=== PATIENT | male | born 1965 | race African-American/Black ===

== ENCOUNTER 2016-09-01 13:26 | Outpatient (CLI) | payer MEDICAID | END 2016-09-01 13:27 | disposition home or self-care (01) | DX: K58.9 Irritable bowel syndrome, unspecified (principal); F41.8 Other specified anxiety disorders; D64.9 Anemia, unspecified ==

== ENCOUNTER 2016-11-03 09:36 | Outpatient (CLI) | payer MEDICAID | END 2016-11-03 09:37 | disposition home or self-care (01) | DX: K86.1 Other chronic pancreatitis (principal); Z90.49 Acquired absence of other specified parts of digestive tract ==

== ENCOUNTER 2017-01-04 08:47 | Outpatient (CLI) | payer MEDICAID ==
[2017-01-04 13:31] LABS: ALBUMIN/GLOBULIN RATIO 1.7 (1.0-2.2); BILIRUBIN,TOTAL 0.6 mg/dL (0.2-1.0); CALCIUM 9.4 mg/dL (8.5-10.3); POTASSIUM 3.4 mmol/L (3.5-5.0); TOTAL PROTEIN 7.7 g/dL (6.7-8.2)
== END 2017-01-04 08:48 | disposition home or self-care (01) ==
LOC: LAB.N 08:47
PROVIDERS: ATTEND Family Medicine
DX: K86.1 Other chronic pancreatitis (principal); K58.9 Irritable bowel syndrome, unspecified
CPT/HCPCS: 36415; 80053; 82150; 83690

== ENCOUNTER 2017-01-14 13:30 | Emergency (ER) | payer MEDICAID ==
[2017-01-14 13:36] VITALS: BP 104/59
[2017-01-14 14:27] LABS: BILIRUBIN,URINE NEGATIVE (NEGATIVE); PH,URINE 5.5 PH (5.0-7.5)
[2017-01-14 14:34] LABS: UA CHARGE (STRIP ONLY) YES; UR CULTURE IF IND NOT INDICATED
--- NOTE | 2017-01-14 15:19 | ED Physician Documentation ---
PD HPI MALE - Stated complaint Stated Complaint: MALE - Chief complaint Chief Complaint: UTI - History obtained from History obtained from: Patient, Family - History of Present Illness Timing - onset: Other (51-year-old gentleman complains of 1 week of urinary frequency, drinking a lot of water and peeing a lot, however no increase in nocturia and there is no associated dysuria, back pain, fatigue, weight loss.) Review of Systems Constitutional: denies: Fever, Chills GI: reports: Abdominal Pain (Chronic, unchanged) : reports: Frequency. denies: Dysuria, Hesitancy, Incontinent PD PAST MEDICAL HISTORY - Past Medical History GI: Hiatal hernia Other Past Medical History: "pancreas problems" - Past Surgical History Past Surgical History: Yes General: Cholecystectomy Derm: Skin grafts - Present Medications Home Medications: Ambulatory Orders Medication Instructions Recorded Confirmed Dicyclomine [Bentyl] 10 mg PO QID 09/23/13 09/23/13 Omeprazole [PriLOSEC] 20 mg PO DAILY 09/23/13 09/23/13 Senna [Senokot] 8.6 mg PO DAILY 09/23/13 09/23/13 busPIRone [Buspar] 5 mg PO DAILY 01/14/17 01/14/17 - Allergies Allergies/Adverse Reactions: Allergies Allergy/AdvReac Type Severity Reaction Status Date / Time ondansetron Allergy Severe Respiratory Verified 09/24/13 00:06 acetaminophen [From Vicodin] Allergy Nausea Verified 01/14/17 13:36 hydrocodone bitartrate * Allergy Nausea Verified 01/14/17 13:36 [From Vicodin] - Social History Does the pt smoke?: No Smoking Status: Never smoker Does the pt drink ETOH?: No Does the pt have substance abuse?: No - Immunizations Immunizations are current?: Yes - POLST Patient has POLST: No PD ED PE NORMAL - Vitals Vital signs reviewed: Yes - General General: Alert and oriented X 3, No acute distress - Abdomen Abdomen: Normal bowel sounds, Soft, Non tender - Male Male : Other (Bladder scan 15 mL) - Rectal Rectal: Other (Nontender not enlarged prostate) - Neuro Neuro: Alert and oriented X 3, Normal speech - Psych Psych: Normal mood, Normal affect Results - Vitals Vitals: Vital Signs - 24 hr 01/14/17 13:34 Temperature 36.5 C Heart Rate 90 Respiratory 16 Rate Blood Pressure 104/59 L O2 Saturation 98 Oxygen O2 Source Room air - Labs Labs: Laboratory Tests 01/14/17 14:10 Urine Color YELLOW Urine Clarity CLEAR Urine pH 5.5 Ur Specific [place] >=1.030 H Urine Protein NEGATIVE Urine Glucose (UA) NEGATIVE Urine Ketones NEGATIVE Urine Occult Blood TRACE-INTA Urine Nitrite NEGATIVE Urine Bilirubin NEGATIVE Urine Urobilinogen 0.2 (NORMAL) Ur Leukocyte Esterase NEGATIVE Ur Microscopic Review NOT INDICATED Urine Culture Comments NOT INDICATED PD MEDICAL DECISION MAKING - ED course ED course: 51-year-old gentleman complains of urinary frequency, however no nocturia. He had electrolytes done a week ago which were unremarkable. His bladder scan is negligible here and we will check a blood sugar, however his blood glucose was normal a week ago. Departure - Departure Disposition: 01 Home, Self Care Clinical Impression: Urinary frequency Condition: Good Record reviewed to determine appropriate education?: Yes Comments: Return if worse or if new symptoms develop, otherwise follow-up with your physician at your earliest convenience.
== END 2017-01-14 15:25 | disposition home or self-care (01) ==
LOC: ED 13:30
DX: R35.0 Frequency of micturition (principal); R10.9 Unspecified abdominal pain
CPT/HCPCS: 51798; 81001; 81003; 87086; 99283

== ENCOUNTER 2017-01-19 08:56 | Outpatient (CLI) | payer MEDICAID ==
--- NOTE | 2017-01-19 15:12 | Ultrasound Report ---
LIMITED ABDOMINAL ULTRASOUND: 01/19/2017 CLINICAL INDICATION: Chronic recurrent pancreatitis. COMPARISON: 11/03/2016. TECHNIQUE: Real-time scanning was performed with telemarketing representative static images obtained. FINDINGS: The liver measures 13.4 cm. Hepatic echotexture is normal. No intrahepatic biliary dilatat ion or focal parenchymal lesion is present. The patient is status post cholecystectomy. The common bi le duct measures 5 mm. The visualized pancreas is unremarkable. The right kidney measures 9.4 cm, and demonstrates no hydronephrosis. No free fluid is present. IMPRESSION: CHANGES OF CHOLECYSTECTOMY. THE VISUALIZED PANCREAS IS UNREMARKABLE. JOB #: [id number] EXT JOB #:[id number]
== END 2017-01-19 08:57 | disposition home or self-care (01) ==
LOC: DI 08:56
PROVIDERS: ATTEND Family Medicine
DX: K86.1 Other chronic pancreatitis (principal); Z90.49 Acquired absence of other specified parts of digestive tract
CPT/HCPCS: 76705

== ENCOUNTER 2018-01-25 14:42 | Outpatient (CLI) | payer MEDICAID ==
[2018-01-25 19:07] LABS: BASOPHILS % (AUTO) 0.4 %; EOSINOPHILS # (AUTO) 0.1 10^3/uL (0.0-0.7); EOSINOPHILS % (AUTO) 2.1 %; HGB - HEMOGLOBIN 11.5 g/dL (14.0-18.0); LYMPHOCYTES # (AUTO) 1.8 10^3/uL (1.5-3.5); LYMPHOCYTES % (AUTO) 59.1 %; MEAN CORPUSCULAR HEMOGLOBIN 24.3 pg (27.0-31.0); MEAN CORPUSCULAR HGB CONC 31.5 g/dL (32.0-36.0); MEAN CORPUSCULAR VOLUME 77.2 fL (80.0-94.0); MONOCYTES # (AUTO) 0.2 10^3/uL (0.0-1.0); MONOCYTES % (AUTO) 8.1 %; NEUTROPHILS # (AUTO) 0.9 10^3/uL (1.5-6.6); NEUTROPHILS % (AUTO) 30.3 %; PLT - PLATELET COUNT 163 10^3/uL (130-450); RED CELL DISTRIBUTION WIDTH 13.7 % (12.0-15.0); WHITE BLOOD COUNT 3.1 x10^3/uL (4.8-10.8)
[2018-01-25 20:02] LABS: ALBUMIN 4.2 g/dL (3.2-5.5); ALBUMIN/GLOBULIN RATIO 1.4 (1.0-2.2); BILIRUBIN,TOTAL 0.7 mg/dL (0.2-1.0); CALCIUM 9.1 mg/dL (8.5-10.3); TOTAL PROTEIN 7.2 g/dL (6.7-8.2)
== END 2018-01-25 14:43 | disposition home or self-care (01) ==
LOC: LAB.N 14:42
PROVIDERS: ATTEND Family Medicine
DX: R10.9 Unspecified abdominal pain (principal); K58.9 Irritable bowel syndrome, unspecified; K64.9 Unspecified hemorrhoids
CPT/HCPCS: 36415; 80053; 82728; 83540; 83690; 84466; 85025

== ENCOUNTER 2018-03-11 20:55 | Observation (INO) | payer MEDICAID ==
[2018-03-11] MEDS ORDERED: ASPIRIN CHEW 81 MG TABLET PO STA (21:19)
[2018-03-11] MEDS ORDERED: NITROGLYCERIN SL 0.4 MG TABLET SL STA (21:19)
[2018-03-11] MEDS ORDERED: METOPROLOL TARTRATE 50 MG TABLET ONE (21:24)
[2018-03-11] MEDS ORDERED: CLOPIDOGREL 300 MG TABLET PO ONE (21:24)
[2018-03-11] MEDS ORDERED: HEPARIN 5,000 UNIT/ML VIAL ONE (21:24)
[2018-03-11] MEDS ORDERED: HEPARIN IV ONE (21:24)
[2018-03-11] MEDS ORDERED: MORPHINE 10 MG/ML VIAL IVP STA (21:28)
[2018-03-11 21:40] LABS: INR 1.2 (0.8-1.2); PT - PROTHROMBIN TIME 13.2 secs (9.9-12.6)
--- NOTE | 2018-03-11 21:40 | XRAY Report ---
Reason: chest pain Procedure Date: 03/11/2018 Accession Number: [id number] / [id number] Procedure: XR - Chest 1 View X-Ray CPT Code: 63672 FULL RESULT: EXAM: CHEST RADIOGRAPHY EXAM DATE: 03/11/2018 09:31 PM. CLINICAL HISTORY: Chest pain. COMPARISON: Chest abdomen 01/09/2008. TECHNIQUE: 1 view. FINDINGS: Lungs/Pleura: No focal opacities evident. No pleural effusion. No pneumothorax. Mediastinum: Within exam limitations, the cardiomediastinal contour is normal. Other: None. IMPRESSION: Normal single view chest. RADIA
[2018-03-11 21:49] LABS: ALBUMIN 4.7 g/dL (3.2-5.5); ALBUMIN/GLOBULIN RATIO 1.7 (1.0-2.2); BILIRUBIN,TOTAL 0.7 mg/dL (0.2-1.0); CALCIUM 10.1 mg/dL (8.5-10.3); CREATININE 1.3 mg/dL (0.6-1.2); TOTAL PROTEIN 7.5 g/dL (6.7-8.2)
--- NOTE | 2018-03-11 21:59 | ED Physician Documentation ---
PD HPI CHEST PAIN - Stated complaint Stated Complaint: CHEST PX - Chief complaint Chief Complaint: Cardiac - History obtained from History obtained from: Patient - History of Present Illness Timing - onset: Today Timing - onset during: Rest Timing - duration: Hours Timing - details: Abrupt onset Pain level max: 8 Pain level now: 8 Quality: Sharp, Stabbing Location: Substernal Radiation: Other (no radiation) Improved by: Rest Worsened by: Eating Associated symptoms: Shortness of air, General Weakness. No: Diaphoresis, Nausea, Feeling faint / dizzy, Cough Similar symptoms before: No diagnosis Recently seen: Not recently seen Review of Systems Constitutional: denies: Fever, Chills Eyes: denies: Discharge Ears: denies: Ear pain Nose: denies: Congestion Throat: denies: Sore throat Cardiac: reports: Chest pain / pressure Respiratory: denies: Cough GI: denies: Abdominal Pain : denies: Dysuria Skin: denies: Rash Musculoskeletal: denies: Neck pain Neurologic: denies: Generalized weakness Endocrine: denies: Polydypsia Immunocompromised: denies: Chemotherapy PD PAST MEDICAL HISTORY - Past Medical History GI: Hiatal hernia - Past Surgical History Past Surgical History: Yes General: Cholecystectomy Derm: Skin grafts - Present Medications Home Medications: Ambulatory Orders Medication Instructions Recorded Confirmed Dicyclomine [Bentyl] 10 mg PO QID 09/23/13 09/23/13 Omeprazole [PriLOSEC] 20 mg PO DAILY 09/23/13 09/23/13 Senna [Senokot] 8.6 mg PO DAILY 09/23/13 09/23/13 busPIRone [Buspar] 5 mg PO DAILY 01/14/17 01/14/17 - Allergies Allergies/Adverse Reactions: Allergies Allergy/AdvReac Type Severity Reaction Status Date / Time ondansetron Allergy Severe Respiratory Verified 09/24/13 00:06 acetaminophen [From Vicodin] Allergy Nausea Verified 01/14/17 13:36 hydrocodone bitartrate * Allergy Nausea Verified 01/14/17 13:36 [From Vicodin] - Social History Does the pt smoke?: No Smoking Status: Never smoker Does the pt drink ETOH?: No Does the pt have substance abuse?: No - Immunizations Immunizations are current?: Yes - POLST Patient has POLST: No PD ED PE NORMAL - General General: Alert and oriented X 3, No acute distress - HEENT HEENT: Atraumatic, PERRL, EOMI, Ears normal - Neck Neck: Supple, no meningeal sign, No adenopathy - Cardiac Cardiac: RRR, Strong equal pulses - Respiratory Respiratory: No respiratory distress, Clear bilaterally - Abdomen Abdomen: Soft, Non tender, Non distended - Back Back: No CVA TTP - Derm Derm: Normal color - Extremities Extremities: No deformity, No edema - Neuro Neuro: Alert and oriented X 3, No motor deficit, Normal speech - Psych Psych: Normal affect Results - Vitals Vitals: Vital Signs - 24 hr 03/11/18 03/11/18 03/11/18 21:09 21:11 22:02 Temperature 36.8 C Heart Rate 61 60 Respiratory 16 19 Rate Blood Pressure 124/75 122/83 H Blood Pressure 115/78 [Left] Blood Pressure 122/83 H [Right] O2 Saturation 100 100 Oxygen O2 Source Room air - EKG (time done) No standard instances Rate: Rate (enter#) (60 BPM) Rhythm: NSR [place]: Normal Intervals: Normal IL, QRS normal Ischemia: Other (ST elevation in V2-4) Compare to prior EKG: Old EKG unavailable - Labs Labs: Laboratory Tests 03/11/18 03/11/18 03/11/18 21:25 21:25 21:25 PT 13.2 H INR 1.2 APTT 30.7 D-Dimer Sodium 138 Potassium 3.3 L Chloride 104 Carbon Dioxide 26 Anion Gap 8.0 BUN 10 Creatinine 1.3 H Estimated GFR (MDRD) 70 L Glucose 96 Calcium 10.1 Total Bilirubin 0.7 AST 24 ALT 17 Alkaline Phosphatase 31 L Troponin I < 0.04 Total Protein 7.5 Albumin 4.7 Globulin 2.8 Albumin/Globulin Ratio 1.7 Lipase 66 H 03/11/18 21:25 PT INR APTT D-Dimer < 200.0 L Sodium Potassium Chloride Carbon Dioxide Anion Gap BUN Creatinine Estimated GFR (MDRD) Glucose Calcium Total Bilirubin AST ALT Alkaline Phosphatase Troponin I Total Protein Albumin Globulin Albumin/Globulin Ratio Lipase - Rads (name of study) CXR Radiology: Final report received (IMPRESSION: Normal single view chest. ) PD MEDICAL DECISION MAKING - ED course ED course: 21:10 I discussed the case with the cardiology team at [facility], the senior analyst programmer independently reviewed the EKG. I discussed with them the patient' s clinical presentation, past medical history and EKG findings. After the senior analyst programmer independent review of the EKG he does not feel that the EKG findings represent a ST elevation CO and are more consistent with J-point elevation. Currently he does not recommend transfer and recommends typical chest pain workup. The patient is chest pain-free on reevaluation, the patient's workup does not show any significant abnormality at this time. The patient will require admission for a chest pain rule out. The findings and plan were discussed with the patient and family who understand and agree. The case was discussed with the hospitalist who accepts the patient onto his service - Sepsis Event Vital Signs: Vital Signs - 24 hr 03/11/18 03/11/18 03/11/18 21:09 21:11 22:02 Temperature 36.8 C Heart Rate 61 60 Respiratory 16 19 Rate Blood Pressure 124/75 122/83 H Blood Pressure 115/78 [Left] Blood Pressure 122/83 H [Right] O2 Saturation 100 100 Oxygen O2 Source Room air Departure - Departure Disposition: ED Place in Observation Clinical Impression: Chest pain Qualifiers: Chest pain type: unspecified Qualified Code(s): R07.9 - Chest pain, unspecified Condition: Good
[2018-03-11] MEDS ORDERED: POTASSIUM CHLORIDE 20 MEQ TABLET PO STA (22:16)
[2018-03-11 22:34] LABS: BASOPHILS # (AUTO) 0.1 10^3/uL (0.0-0.1); EOSINOPHILS % (AUTO) 0.6 %; HGB - HEMOGLOBIN 11.8 g/dL (14.0-18.0); LYMPHOCYTES # (AUTO) 3.3 10^3/uL (1.5-3.5); LYMPHOCYTES % (AUTO) 60.3 %; MEAN CORPUSCULAR HEMOGLOBIN 24.3 pg (27.0-31.0); MEAN CORPUSCULAR HGB CONC 32.3 g/dL (32.0-36.0); MEAN CORPUSCULAR VOLUME 75.4 fL (80.0-94.0); MEAN PLATELET VOLUME 9.4 fL (7.4-11.4); MONOCYTES # (AUTO) 0.5 10^3/uL (0.0-1.0); MONOCYTES % (AUTO) 9.5 %; NEUTROPHILS # (AUTO) 1.6 10^3/uL (1.5-6.6); NEUTROPHILS % (AUTO) 28.6 %; PLT - PLATELET COUNT 162 10^3/uL (130-450); RED BLOOD COUNT 4.85 10^6/uL (4.70-6.10); RED CELL DISTRIBUTION WIDTH 14.5 % (12.0-15.0); WHITE BLOOD COUNT 5.4 x10^3/uL (4.8-10.8)
[2018-03-11 23:00] LABS: PLATELET ESTIMATE, MANUAL NORMAL (130-450,000) (NORMAL); PLATELET MORPHOLOGY 2+ LARGE PLATELETS (NORMAL); RBC MORPHOLOGY (MULTIPLE) NORMAL APPEARANCE (NORMAL)
[2018-03-11] MEDS ORDERED: SODIUM CHLORIDE FLUSH 0.9% 10 ML SYRINGE IVP PRN (23:44)
[2018-03-11] MEDS ORDERED: MORPHINE 2 MG/ML CARPUJECT IVP PRN (23:44)
[2018-03-12 00:29] LABS: CALCIUM 9.2 mg/dL (8.5-10.3); CREATININE 1.1 mg/dL (0.6-1.2)
[2018-03-12 05:08] LABS: BASOPHILS % (AUTO) 0.5 %; EOSINOPHILS % (AUTO) 0.6 %; HGB - HEMOGLOBIN 11.4 g/dL (14.0-18.0); LYMPHOCYTES # (AUTO) 2.6 10^3/uL (1.5-3.5); LYMPHOCYTES % (AUTO) 47.8 %; MEAN CORPUSCULAR HEMOGLOBIN 24.7 pg (27.0-31.0); MEAN CORPUSCULAR HGB CONC 32.9 g/dL (32.0-36.0); MEAN CORPUSCULAR VOLUME 75.1 fL (80.0-94.0); MEAN PLATELET VOLUME 8.6 fL (7.4-11.4); MONOCYTES # (AUTO) 0.4 10^3/uL (0.0-1.0); MONOCYTES % (AUTO) 8.3 %; NEUTROPHILS # (AUTO) 2.3 10^3/uL (1.5-6.6); NEUTROPHILS % (AUTO) 42.8 %; PLT - PLATELET COUNT 149 10^3/uL (130-450); RED CELL DISTRIBUTION WIDTH 14.1 % (12.0-15.0); WHITE BLOOD COUNT 5.4 x10^3/uL (4.8-10.8)
--- NOTE | 2018-03-12 05:10 | HISTORY & PHYSICAL EXAMINATION ---
Chief Complaint - Chief Complaint Chief Complaint: substernal chest pain History of Present Illness - History of Present Illness HPI Comment/Other: Patient is a 53 y/o male who presented to the ED with complain of substernal chest pain which started in the morning of 03/11/18. Initially it felt like he has to burp, which he tried to do with some success. The sensation subsided then returned later in the day with a feeling of pressure. There was no radiation of pain and no exacerbating factors. He denied previous occurence. He reports some VIC with laying down. He denies nausea or vomiting but says his stomach feels upset. The rest of his history is unremarkable. Work up in the ED included a troponin and an EKG which have been unremarkable so far History - Past Medical History Respiratory: reports: None Endocrine/Autoimmune: reports: None GI: reports: Hiatal hernia, Other (IBS) : reports: None HEENT: reports: None Psych: reports: None Musculoskeletal: reports: None Derm: reports: None MRSA Hx?: No - Past Surgical History General: reports: Cholecystectomy, Other (Hemorrhoidectomy) Derm: reports: Skin grafts - Family & Social History Family History: Other family: Cancer (breast cancer) Living arrangement: At home Living Situation: With spouse/s.o. - Substance History Use: Uses substance without health or social issues: Cannabis Abuse: Recurrent use of substance despite neg consequences: NONE - POLST Patient has POLST: No POLST Status: Full Code Meds/Allgy - Home Medications Home Medications: Ambulatory Orders Medication Instructions Recorded Confirmed Dicyclomine [Bentyl] 10 mg PO QID 09/23/13 09/23/13 Omeprazole [PriLOSEC] 20 mg PO DAILY 09/23/13 09/23/13 Senna [Senokot] 8.6 mg PO DAILY 09/23/13 09/23/13 busPIRone [Buspar] 5 mg PO DAILY 01/14/17 01/14/17 - Allergies Allergies/Adverse Reactions: Allergies Allergy/AdvReac Type Severity Reaction Status Date / Time ondansetron Allergy Severe Respiratory Verified 09/24/13 00:06 acetaminophen [From Vicodin] Allergy Nausea Verified 01/14/17 13:36 hydrocodone bitartrate * Allergy Nausea Verified 01/14/17 13:36 [From Vicodin] Review of Systems - Constitutional Constitutional: denies: Fatigue, Weakness, Poor appetite, Weight loss - Eyes Eyes: denies: Vision loss - Ears, Nose & Throat Ears, Nose & Throat: denies: Ear pain, Hearing loss, Tinnitus, Nosebleeds, Sore throat - Cardiovascular Cariovascular: reports: Chest pain, Lightheadedness, Orthopnea. denies: Palpitations - Respiratory Respiratory: denies: Cough, Wheezing, Hemoptysis, SOB with exertion - Gastrointestinal Gastrointestinal: reports: Reflux/heartburn. denies: Abdominal pain, Nausea, Vomiting - Genitourinary Genitourinary: denies: Dysuria, Frequency, Urgency, Hematuria - Musculoskeletal Musculoskeletal: denies: Muscle pain, Muscle aches, Stiffness, Muscle weakness, Joint swelling - Integumentary Integumentary: denies: Rash, Pruritis - Neurological Neurological: denies: General weakness, Headache, Numbness, Abnormal gait, Slurred speech - Psychiatric Psychiatric: denies: Depression, Anxiety, Suicidal - Endocrine Endocrine: denies: Polyuria, Polydypsia, Polyphagia - Hematologic/Lymphatic Hematologic/Lymphatic: denies: Bruising, Petechiae, Blood clots Exam - Vital Signs Vital Signs: Vital Signs x48h Temp Pulse Resp BP BP BP Pulse Ox 03/12/18 00:22 61 22 126/75 100 03/11/18 23:26 67 18 137/78 H 100 03/11/18 22:52 64 15 144/82 H 100 03/11/18 22:30 64 23 130/75 100 03/11/18 22:02 60 19 122/83 H 100 03/11/18 21:11 115/78 122/83 H 03/11/18 21:09 36.8 C 61 16 124/75 100 - Physical Exam General Appearance: positive: Mild distress Eyes Bilateral: positive: Normal inspection, PERRL, EOMI, No scleral icterus ENT: positive: ENT inspection nml, Pharynx nml, No signs of dehydration Neck: positive: Thyroid nml, No JVD, Trachea midline. negative: Thyromegaly, Lymphadenopathy (R), Lymphadenopathy (L) Respiratory: negative: Chest non-tender, No respiratory distress, Wheezes, Rales, Rhonchi Cardiovascular: positive: Regular rate & rhythm. negative: No murmur, No gallop Abdomen: positive: Non-tender, No organomegaly, Nml bowel sounds, No distention Skin: positive: Color nml, No rash, Warm Extremities: positive: Non-tender, Full ROM, Nml appearance, No pedal edema Neurologic/Psychiatric: positive: Oriented x3, Motor nml, Sensation nml Conclusion/Plan - Problem List (1) Chest pain Conclusion/Plan: Etiology unspecified Will r/o cardiac cause Initial troponin negative. Will trend X 2 more If negative, will proceed with stress test Baby aspirin daily Should chest pain return, we will administer nitroglycerin sublingual Qualifiers: Chest pain type: unspecified Qualified Code(s): R07.9 - Chest pain, unspecified (2) DVT prophylaxis Conclusion/Plan: Lovenox 40 units subq daily - Lab Results Fish Bones: 03/12/18 04:56 03/12/18 04:56 Core Measures - Anticipated LOS I expect patient to be DC'd or transferred within 96 hours.: Yes - DVT/VTE - Prophylaxis VTE/DVT Device ordered at admit?: Yes VTE/DVT Prophylaxis med ordered at admit?: Yes - AMI - Statin at Admit Aspirin Prescribed on Admit: Yes
[2018-03-12 05:15] LABS: ALBUMIN/GLOBULIN RATIO 1.7 (1.0-2.2); BILIRUBIN,TOTAL 0.7 mg/dL (0.2-1.0); TOTAL PROTEIN 6.4 g/dL (6.7-8.2)
[2018-03-12] MEDS: SODIUM CHLORIDE FLUSH 0.9% 10 ML SYRINGE IVP SCH ×3 (05:59→15:46)
[2018-03-12] MEDS: SODIUM CHLORIDE 0.9% 1,000 ML IV SCH ×2 (05:59→13:05)
[2018-03-12] MEDS ORDERED: POLYETHYLENE GLYCOL 3350 17 GM PACKET PO SCH (09:00)
[2018-03-12] MEDS ORDERED: ENOXAPARIN 40 MG/0.4 ML SYRINGE SUBQ SCH (09:00)
[2018-03-12] MEDS ORDERED: ASPIRIN EC 81 MG TABLET PO SCH (09:00)
[2018-03-12] MEDS ORDERED: GI COCKTAIL 120 ML BOTTLE PO ONE (12:15)
--- NOTE | 2018-03-12 15:48 | CARDIAC PROCEDURE NOTE ---
DATE OF SERVICE: 03/12/2018 Physician: Helen Moise MD INDICATION: Chest pain. CARDIAC RISK FACTORS 1. Hypertension. 2. Male gender. The patient underwent a Isma 3-minute stage treadmill protocol after signing informed consent. RESTING EKG 1. Normal sinus rhythm, LVH voltage, early repolarization. SUMMARY: The patient exercised for 10 minutes and 8 seconds. The patient had mild shortness of breath, no chest pain, normal heart rate and blood pressure response to exercise. Resting heart rate 74. Peak heart rate 148 (88% predicted maximum predicted heart rate for age), 12 METS. Resting blood pressure 132/74. Peak blood pressure of 180/70. EKG AT [facility]: No new ST or T-wave changes. IMPRESSION 1. Good exercise tolerance. 2. Negative for ischemia, by EKG criteria, at a good MET level. 3. Nuclear images reported separately. TD: 03/12/2018 15:01 ANU
--- NOTE | 2018-03-12 16:38 | Nuclear Medicine Report ---
Reason: chest pain Procedure Date: 03/12/2018 Accession Number: [id number] / [id number] Procedure: NM - Myocardial Perfusion STR/RST CPT Code: FULL RESULT: EXAM: SINGLE-ISOTOPE EXERCISE STRESS TEST. SINGLE-ISOTOPE AND ONE-DAY REST/STRESS MYOCARDIAL PERFUSION SCANS WITH TOMOGRAPHIC IMAGING, QUANTITATIVE ANALYSIS, WALL MOTION ANALYSIS AND CALCULATION OF EJECTION FRACTION. EXAM DATE: 03/12/2018 03:58 PM. CLINICAL HISTORY: Chest pain. COMPARISON: None. TECHNIQUE: A rest myocardial perfusion scan was done with tomography after the intravenous administration of 10.7 mCi Tc-99m sestamibi. After an appropriate delay, a treadmill exercise stress was performed according to department protocol. The patient exercised for 10 minutes and 8 seconds. The maximum heart rate was 148 bpm, which was 88% of the maximum predicted heart rate of 168 bpm. At approximately peak heart rate, 39.0 mCi of Tc-99m sestamibi was injected for stress myocardial perfusion scan. Motion correction was applied when appropriate. Gated tomographic images were obtained for wall motion analysis and computation of left ventricular ejection fraction. FINDINGS: Perfusion images: Left ventricular chamber size is normal at rest and unchanged at stress. No convincing fixed perfusion deficits. No convincing reversible perfusion deficits. Gated images: No focal wall motion abnormality. Left ventricular EDV 47 mL, ESV 7 mL. The left ventricular ejection fraction is estimated at 85% (normal > 50%). IMPRESSION: 1. No convincing reversible perfusion deficits to indicate stress-induced ischemia. 2. No convincing fixed perfusion deficits. 3. Left ventricular ejection fraction of 85% (normal > 50%). 4. No focal wall motion abnormalities. RADIA
--- NOTE | 2018-03-12 17:08 | Discharge Plan ---
Discharge Plan Disposition: 01 Home, Self Care Condition: Good Prescriptions: Pantoprazole Sodium [Protonix] 20 mg PO BID #60 tablet. Temazepam 7.5 mg PO ACHS #30 capsule Diet: Regular Activity Restrictions: No Restrictions Shower Restrictions: No Driving Restrictions: No Weight Bearing: Full Weight Additional Instructions or Follow Up instructions: You were admitted for mid-sternal chest pain that resolved and was ruled out as cardiac. All cardiac enzymes were negative, and your myocardial perfusion test with treadmill, was NORMAL. An echocardiogram was completed and preliminary results showed some elevated right heart pressures. You should get a sleep study and refrain from inhaling any substances that may irritate your lungs. The most likely cause of your chest pain is GI related. You should take a proton pump inhibitor twice daily, and if this is not working, check back with your PCP. Please seek a therapist to ease your mental work load as this may add to your symptoms. I have given you some mild sleeping pills to help you out with the lack of normal sleeping. Please see your PCP within one week as a follow up to this stay. No Smoking: If you smoke, Please STOP! Call for help. Follow-up with: Jill Myles ARNP [Primary Care Provider] -
--- NOTE | 2018-03-12 17:16 | DISCHARGE SUMMARY ---
Discharge Summary Admit Date: 03/11/18 Discharge Date: 03/12/18 Discharging Provider: FLORENCE Seay Primary Care Provider: Jill Martinez Code Status: Attempt Resuscitation Condition at Discharge: Good Discharge Disposition: 01 Home, Self Care - DIAGNOSES Admission Diagnoses: Chest pain (R07.9) Mechanical deep vein thrombosis (DVT) prophylaxis in place (Z78.9) Discharge Diagnoses with Status of Each Condition: Chest pain (R07.9) likely due to GERD, stable and resolved at the time of discharge. Mechanical deep vein thrombosis (DVT) prophylaxis in place (Z78.9) resolved. Marijuana abuse (F12.10) chronic, stable. GERD (gastroesophageal reflux disease) (K21.9) chronic, stable. Anxiety and depression (F41.9) chronic, stable, encouraged to seek psychotherapy. Insomnia (G47.00)chronic, stable. - HPI History of Present Illness: Patrick Celis Jr is an 53 y/o male with a past medical history of depression, anxiety, marijuana dependence, status post cholecystectomy, and GERD. He presented to the ED with complaints of substernal chest pain which started in the morning of 03/11/18. Initially it felt like he has to burp, which he tried to resolve with [place] Sophia, with little success. The sensation subsided then returned later in the day with a feeling of pressure. There was no radiation of pain to his chin, shoulder, or extremities. He denies other associated symptoms such as dizziness, diaphoresis, blurred vision, or syncope. He denied previous occurrences to this severity, although can attest to previous heart burn symptoms. He reports some orthopnea, and states that he no longer lies in bed to sleep and his anxiety "gets the best of him". He denies nausea or vomiting but says his stomach feels upset. The rest of his history is unremarkable. Work up in the ED included a troponin and an EKG which have been unremarkable so far. He was admitted to observation to undergo further testing including a myocardial perfusion treadmill stress test. - HOSPITAL COURSE Hospital Course: Chest pain: The patient was observed overnight and underwent a myocardial perfus ion treadmill/stress test, telemetry monitoring, an echocardiogram, and routine vital sign monitoring. These test were all negative as to rule out a cardiac cause. The chest pain was likely due to GERD as it resolved upon discharge, and was not provoked by activity. Marijuana abuse: The patient admits to continued use and was talked about as to the possible cause of his pulmonary hypertension. If he finds marijuana helpful, he should no longer smoke it, rather consume it via GI tract. He agreed and this condition is thought to be stable. GERD: The patient has complained of "heart burn" for several years. He was given one GI cocktail, which was reported as having little benefit. This condition seemed stable at the time of discharge. Anxiety and depression: The patient talked about his ex- and custody issues that has been causing him lots of stress and insomnia for the past several months. He denies suicidal ideation, and does not currently see a therapist. This condition remains unstable, and the patient is agreeable to seeking an out patient therapist. Insomnia: The patient admits to not sleeping in his bed at night as the neighborhood has several homeless people and he worries about someone breaking in while they sleep. Another component to this is his apparent orthopnea, likely related to his possible undiagnosed sleep apnea. He has been encouraged to get a sleep study to be ordered by PCP and a small amount of low dose temazepam were given for the next few nights. This condition is considered to be stable upon discharge. Disposition: The patient has completed the limited cardiac work up, and was instructed to return to the ED if his chest pain persists. - ALLERGIES Allergies/Adverse Reactions: Allergies Allergy/AdvReac Type Severity Reaction Status Date / Time ondansetron Allergy Severe Respiratory Verified 09/24/13 00:06 acetaminophen [From Vicodin] Allergy Nausea Verified 01/14/17 13:36 hydrocodone bitartrate * Allergy Nausea Verified 01/14/17 13:36 [From Vicodin] - MEDICATIONS Home Medications: Ambulatory Orders Medication Instructions Recorded Confirmed Pantoprazole Sodium [Protonix] 20 mg PO BID #60 tablet. 03/12/18 Polyethylene Glycol 3350 8.5 g PO DAILY PRN 03/12/18 03/12/18 Sennosides/Docusate Sodium 2 tab PO QPM 03/12/18 03/12/18 [Senna-S Laxative Tablet] Temazepam 7.5 mg PO DAILY PM #30 capsule 03/13/18 Omeprazole Magnesium [Prilosec] 10 mg PO BID #60 suspdr.pkt 03/15/18 - PHYSICAL EXAM AT DISCHARGE General Appearance: positive: No acute distress, Alert, Anxious Eyes Bilateral: positive: Normal inspection, PERRL ENT: positive: ENT inspection nml, Pharynx nml, No signs of dehydration Neck: positive: Nml inspection, Thyroid nml, No JVD, Trachea midline Respiratory: positive: Chest non-tender, No respiratory distress, Breath sounds nml Cardiovascular: positive: Regular rate & rhythm, No gallop, Bradycardia, Systolic murmur Peripheral Pulses: positive: 2+ Abdomen: positive: Non-tender, No organomegaly, Nml bowel sounds, No distention Back: positive: Nml inspection Skin: positive: No rash, Warm, Dry Extremities: positive: Non-tender, Full ROM, Nml appearance Neurologic/Psychiatric: positive: Oriented x3, CN's nml (2-12), Motor nml, Sensation nml, Depressed mood/affect Reflexes: Bicep (R): 3+, Bicep (L): 3+ - LABS Result Diagrams: 03/12/18 04:56 03/12/18 04:56 - DIAGNOSTIC IMAGING Diagnostic Imaging Results: Final report reviewed Diagnostic Imaging Results Comments: EXAM: CHEST RADIOGRAPHY EXAM DATE: 03/11/2018 09:31 PM. IMPRESSION: Normal single view chest. EXAM: SINGLE-ISOTOPE EXERCISE STRESS TEST. SINGLE-ISOTOPE AND ONE-DAY REST/STRESS MYOCARDIAL PERFUSION SCANS WITH TOMOGRAPHIC IMAGING, QUANTITATIVE A NALYSIS, WALL MOTION ANALYSIS AND CALCULATION OF EJECTION FRACTION. EXAM DATE: 03/12/2018 03:58 PM. IMPRESSION: 1. No convincing reversible perfusion deficits to indicate stress-induced ische nydia. 2. No convincing fixed perfusion deficits. 3. Left ventricular ejection fraction of 85% (normal > 50%). 4. No focal wall motion abnormalities. ECHOCARDIOGRAM: Final results by Juan Colon MD 1. The LV size is normal. LV wall thickness is normal. Overall LV systolic function is normal with an EF of 65-70%. Normal diastology. No regional wall motion abnormalities are seen. 2. The RV is normal in size and function. 3. There is no pericardial effusion noted. 4. No significant valvular abnormality. - FOLLOW UP Follow Up: Disposition: 01 Home, Self Care Condition: Good Prescriptions: Pantoprazole Sodium [Protonix] 20 mg PO BID #60 tablet. Temazepam 7.5 mg PO ACHS #30 capsule Diet: Regular Activity Restrictions: No Restrictions Shower Restrictions: No Driving Restrictions: No Weight Bearing: Full Weight Additional Instructions or Follow Up instructions: You were admitted for mid-sternal chest pain that resolved and was ruled out as cardiac. All cardiac enzymes were negative, and your myocardial perfusion test with treadmill, was NORMAL. An echocardiogram was completed and preliminary results showed some elevated right heart pressures. You should get a sleep study and refrain from inhaling a ny substances that may irritate your lungs. The most likely cause of your chest pain is GI related. You should take a proton pump inhibitor twice daily, and if this is not working, check back with your PCP. Please seek a therapist to ease your mental work load as this may add to your symptoms. I have given you some mild sleeping pills to help you out with the lack of normal sleeping. Please see your PCP within one week as a follow up to this stay. - TIME SPENT Time Spent in Discharge (Minutes): 60
[2018-03-12 18:31] VITALS: BP 123/73
--- NOTE | 2018-03-15 12:47 | MISCELLANEOUS PROVIDER NOTE ---
Miscellaneous Provider Note - - Note: I received a phone call today from the patient at home with continued complaints of chest pain. He states that is located in his mid-sternum similar to before and makes him mildly short of breath, and increased anxiety. He states that he took a walk and this resolved. He also talked about [facility] not having enough PPI that was prescribed and he worried about running out as he only has 3 pills left. After speaking with my supervising MD, Dr. Helen Moise, who was the provider during his latest stress test, she attests to advising the patient to come back to the ED. FLORENCE Seay
== END 2018-03-12 19:45 | disposition home or self-care (01) ==
LOC: ED 20:55 → MS2 23:45
PROVIDERS: ADMIT Internal Medicine; ATTEND Nurse Practitioner
DX: R07.89 Other chest pain (principal); K21.9 Gastro-esophageal reflux disease without esophagitis; F12.20 Cannabis dependence, uncomplicated; F41.9 Anxiety disorder, unspecified; F32.9 Major depressive disorder, single episode, unspecified; G47.00 Insomnia, unspecified; R06.01 Orthopnea
CPT/HCPCS: 36415; 71045; 78452; 80048; 80053; 83690; 84484; 85025; 85379; 85610; 85730; 93005; 93017; 93306; 96374; 99284; 99285; A9270; A9500; G0378

== ENCOUNTER 2018-03-15 13:35 | Emergency (ER) | payer MEDICAID ==
[2018-03-15] MEDS ORDERED: MAG HYDROX/AL HYDROX/SIMETH 30 ML UDC PO STA (14:05)
[2018-03-15] MEDS ORDERED: PHENobarb/HYOSCY/ATROPINE/SCOP 5 ML UDC PO STA (14:05)
[2018-03-15] MEDS ORDERED: KETOROLAC 60 MG/2 ML VIAL IVP STA (14:05)
[2018-03-15] MEDS ORDERED: LIDOCAINE VISCOUS 2% 15 ML UDC MM STA (14:05)
[2018-03-15] MEDS ORDERED: FAMOTIDINE 20 MG TABLET PO STA (14:05)
[2018-03-15] MEDS ORDERED: SUCRALFATE 1 GM/10 ML UDC PO STA (14:05)
--- NOTE | 2018-03-15 14:14 | ED Physician Documentation ---
PD HPI CHEST PAIN - Stated complaint Stated Complaint: CHEST PX - Chief complaint Chief Complaint: Cardiac - History obtained from History obtained from: Patient, Family - History of Present Illness Timing - onset: Last night Timing - onset during: Rest Timing - details: Gradual onset Pain level max: 7 Pain level now: 6 Quality: Aching, Pain Location: Substernal Radiation: Other (non-radiating) Improved by: Nothing Worsened by: Palpation Associated symptoms: Shortness of air (occasional). No: Diaphoresis, Nausea, Vomiting, Feeling faint / dizzy, General Weakness, Palpitations, Cough Similar symptoms before: Diagnosis (chest pain, negative nuclear stress test 3 days ago. Patient states that he has a long-standing history of GERD it was taken off of his reflux medications approximately 2 years ago) Review of Systems Ten Systems: 10 systems reviewed and negative Constitutional: denies: Fever, Chills Ears: denies: Ear pain Nose: denies: Rhinorrhea / runny nose, Congestion Throat: denies: Sore throat Cardiac: denies: Palpitations Respiratory: denies: Dyspnea, Cough, Wheezing GI: denies: Nausea, Vomiting, Diarrhea Skin: denies: Rash Musculoskeletal: denies: Neck pain, Back pain Neurologic: denies: Headache PD PAST MEDICAL HISTORY - Past Medical History Past Medical History: Yes Respiratory: None Endocrine/Autoimmune: None GI: GERD, Hiatal hernia, Other (IBS) : None HEENT: None Psych: None Musculoskeletal: None Derm: None - Past Surgical History Past Surgical History: Yes General: Cholecystectomy, Other (Hemorrhoidectomy) Derm: Skin grafts - Present Medications Home Medications: Ambulatory Orders Medication Instructions Recorded Confirmed Pantoprazole Sodium [Protonix] 20 mg PO BID #60 tablet. 03/12/18 Polyethylene Glycol 3350 8.5 g PO DAILY PRN 03/12/18 03/12/18 Sennosides/Docusate Sodium 2 tab PO QPM 03/12/18 03/12/18 [Senna-S Laxative Tablet] Temazepam 7.5 mg PO DAILY PM #30 capsule 03/13/18 Famotidine [Pepcid] 20 mg PO BID #60 tablet 03/15/18 Omeprazole Magnesium [Prilosec] 10 mg PO BID #60 suspdr.pkt 03/15/18 Sucralfate [Carafate] 1 gm PO ACHS #60 tablet 03/15/18 - Allergies Allergies/Adverse Reactions: Allergies Allergy/AdvReac Type Severity Reaction Status Date / Time ondansetron Allergy Severe Respiratory Verified 03/15/18 13:44 acetaminophen [From Vicodin] Allergy Nausea Verified 03/15/18 13:44 hydrocodone bitartrate * Allergy Nausea Verified 03/15/18 13:44 [From Vicodin] - Living Situation Living Situation: reports: With family Living Arrangement: reports: At home - Social History Does the pt smoke?: No Smoking Status: Never smoker Does the pt drink ETOH?: No Does the pt have substance abuse?: No - Immunizations Immunizations are current?: Yes - POLST Patient has POLST: No POLST Status: Full Code PD ED PE NORMAL - Vitals Vital signs reviewed: Yes - General General: Alert and oriented X 3, No acute distress - HEENT HEENT: Moist mucous membranes - Neck Neck: Supple, no meningeal sign - Cardiac Cardiac: RRR, Strong equal pulses - Respiratory Respiratory: No respiratory distress, Clear bilaterally - Abdomen Abdomen: Soft, Non tender, Non distended - Derm Derm: Warm and dry - Extremities Extremities: No edema, No calf tenderness / cord - Neuro Neuro: Alert and oriented X 3 - Psych Psych: Normal mood, Normal affect Results - Vitals Vitals: Vital Signs - 24 hr 03/15/18 03/15/18 13:40 14:45 Temperature 37.1 C Heart Rate 69 64 Respiratory 18 16 Rate Blood Pressure 129/69 121/75 O2 Saturation 100 99 Oxygen O2 Source Room air - EKG (time done) 1354 Rate: Rate (enter#) (66) Rhythm: NSR [place]: Normal Intervals: Normal TN QRS: LVH Ischemia: Normal ST segments Computer interpretation: Agree with computer - Labs Labs: Laboratory Tests 03/15/18 03/15/18 03/15/18 14:15 14:15 14:15 WBC 2.9 L RBC 4.95 Hgb 12.3 L Hct 37.4 L MCV 75.5 L MCH 24.8 L MCHC 32.8 RDW 14.4 Plt Count 174 MPV 8.4 Neut # (Auto) 1.3 L Lymph # (Auto) 1.3 L [facility] # (Auto) 0.3 Eos # (Auto) 0.0 Baso # (Auto) 0.0 Absolute Nucleated RBC 0.00 Nucleated RBC % 0.1 Manual Slide Review Indicated WBC Morphology NORMAL APPEARANCE Platelet Estimate NORMAL (130-450,000) Platelet Morphology NORMAL APPEARANCE RBC Morph Micro Appear NORMAL APPEARANCE Sodium 136 Potassium 3.8 Chloride 104 Carbon Dioxide 25 Anion Gap 7.0 BUN 11 Creatinine 1.1 Estimated GFR (MDRD) 85 L Glucose 136 H Calcium 9.4 Total Bilirubin 1.0 AST 21 ALT 21 Alkaline Phosphatase 30 L Troponin I < 0.04 Total Protein 7.5 Albumin 4.7 Globulin 2.8 Albumin/Globulin Ratio 1.7 Lipase 45 - Rads (name of study) cxr Radiology: Prelim report reviewed, EMP read contemporaneously, See rad report (no acute disease) PD MEDICAL DECISION MAKING - ED course Complexity details: reviewed old records, reviewed results, re-evaluated patient, considered differential, d/w patient, d/w family, d/w real estate consultant ED course: Patient is a 53-year-old gentleman that presents to the emergency department with central chest pain. Completely resolved with GI cocktail. Feels much better. Appears to be related likely to gastritis versus GERD. Had a negative nuclear medicine stress test 3 days ago. Normal EKG and negative troponin today. Discussed the case with Dr. Sigala, cardiology at [facility] who will follow up the patient as an outpatient. Patient and family counseled regarding signs and symptoms for which I believe and urgent re- evaluation would be necessary. Patient with good understanding of and agreement to plan and is comfortable going home at this time This document was made in part using voice recognition software. While efforts are made to proofread this document, sound alike and grammatical errors may occur. - Sepsis Event Vital Signs: Vital Signs - 24 hr 03/15/18 03/15/18 13:40 14:45 Temperature 37.1 C Heart Rate 69 64 Respiratory 18 16 Rate Blood Pressure 129/69 121/75 O2 Saturation 100 99 Oxygen O2 Source Room air Departure - Departure Disposition: 01 Home, Self Care Clinical Impression: Chest pain Qualifiers: Chest pain type: unspecified Qualified Code(s): R07.9 - Chest pain, unspecified GERD (gastroesophageal reflux disease) Qualifiers: Esophagitis presence: with esophagitis Qualified Code(s): K21.0 - Gastro- esophageal reflux disease with esophagitis Condition: Good Instructions: ED Chest Pain Atypical Unkn Cause, ED GERD Follow-Up: [facility] - Card [Provider Group] - Within 1 week Jill Myles ARNP [Primary Care Provider] - Within 1 week Prescriptions: Famotidine [Pepcid] 20 mg PO BID #60 tablet Sucralfate [Carafate] 1 gm PO ACHS #60 tablet Comments: Follow up with your doctor for a referral to cardiology. I spoke with Dr. Sigala at [facility] cardiology today. JACQUELINE Ambriz called in prilose today. Add this to the carafate and pepcid I am writing for you today. Do not take the protonix. Return if you worsen. Discharge Date/Time: 03/15/18 15:59
[2018-03-15 14:20] LABS: BASOPHILS % (AUTO) 0.6 %; EOSINOPHILS % (AUTO) 1.1 %; HGB - HEMOGLOBIN 12.3 g/dL (14.0-18.0); LYMPHOCYTES # (AUTO) 1.3 10^3/uL (1.5-3.5); LYMPHOCYTES % (AUTO) 45.9 %; MEAN CORPUSCULAR HEMOGLOBIN 24.8 pg (27.0-31.0); MEAN CORPUSCULAR HGB CONC 32.8 g/dL (32.0-36.0); MEAN CORPUSCULAR VOLUME 75.5 fL (80.0-94.0); MEAN PLATELET VOLUME 8.4 fL (7.4-11.4); MONOCYTES # (AUTO) 0.3 10^3/uL (0.0-1.0); MONOCYTES % (AUTO) 8.6 %; NEUTROPHILS # (AUTO) 1.3 10^3/uL (1.5-6.6); NEUTROPHILS % (AUTO) 43.8 %; PLT - PLATELET COUNT 174 10^3/uL (130-450); RED BLOOD COUNT 4.95 10^6/uL (4.70-6.10); RED CELL DISTRIBUTION WIDTH 14.4 % (12.0-15.0); WHITE BLOOD COUNT 2.9 x10^3/uL (4.8-10.8)
--- NOTE | 2018-03-15 14:31 | XRAY Report ---
Reason: chest pain Procedure Date: 03/15/2018 Accession Number: [id number] / [id number] Procedure: XR - Chest 1 View X-Ray CPT Code: 13123 FULL RESULT: EXAM: CHEST RADIOGRAPHY EXAM DATE: 03/15/2018 02:19 PM. CLINICAL HISTORY: Chest pain. COMPARISON: Chest 03/11/2018. TECHNIQUE: 1 view. FINDINGS: Lungs/Pleura: No focal opacities evident. No pleural effusion. No pneumothorax. Mediastinum: Within exam limitations, the cardiomediastinal contour is normal. IMPRESSION: No evidence of acute thoracic process RADIA
[2018-03-15 14:33] LABS: ALBUMIN 4.7 g/dL (3.2-5.5); ALBUMIN/GLOBULIN RATIO 1.7 (1.0-2.2); CALCIUM 9.4 mg/dL (8.5-10.3); CREATININE 1.1 mg/dL (0.6-1.2); TOTAL PROTEIN 7.5 g/dL (6.7-8.2)
[2018-03-15 14:47] VITALS: BP 121/75
[2018-03-15 14:59] LABS: PLATELET ESTIMATE, MANUAL NORMAL (130-450,000) (NORMAL); PLATELET MORPHOLOGY NORMAL APPEARANCE (NORMAL); RBC MORPHOLOGY (MULTIPLE) NORMAL APPEARANCE (NORMAL)
== END 2018-03-15 15:59 | disposition home or self-care (01) ==
LOC: ED 13:35
DX: K21.0 Gastro-esophageal reflux disease with esophagitis (principal); R07.9 Chest pain, unspecified; I51.7 Cardiomegaly
CPT/HCPCS: 36415; 71045; 80053; 83690; 84484; 85025; 93005; 96374; 99283; 99284; A9270

== ENCOUNTER 2018-04-29 14:31 | Outpatient (CLI) | payer MEDICAID ==
[2018-04-29 15:28] LABS: BASOPHILS % (AUTO) 0.4 %; EOSINOPHILS % (AUTO) 0.6 %; HGB - HEMOGLOBIN 11.6 g/dL (14.0-18.0); LYMPHOCYTES # (AUTO) 1.7 10^3/uL (1.5-3.5); LYMPHOCYTES % (AUTO) 48.7 %; MEAN CORPUSCULAR HEMOGLOBIN 24.6 pg (27.0-31.0); MEAN CORPUSCULAR HGB CONC 32.4 g/dL (32.0-36.0); MEAN CORPUSCULAR VOLUME 75.8 fL (80.0-94.0); MEAN PLATELET VOLUME 8.7 fL (7.4-11.4); MONOCYTES # (AUTO) 0.3 10^3/uL (0.0-1.0); MONOCYTES % (AUTO) 7.2 %; NEUTROPHILS # (AUTO) 1.6 10^3/uL (1.5-6.6); NEUTROPHILS % (AUTO) 43.1 %; PLT - PLATELET COUNT 176 10^3/uL (130-450); RED BLOOD COUNT 4.73 10^6/uL (4.70-6.10); RED CELL DISTRIBUTION WIDTH 14.1 % (12.0-15.0); WHITE BLOOD COUNT 3.6 x10^3/uL (4.8-10.8)
[2018-04-29 15:35] LABS: ALBUMIN 4.6 g/dL (3.2-5.5); ALBUMIN/GLOBULIN RATIO 1.4 (1.0-2.2); BILIRUBIN,TOTAL 0.7 mg/dL (0.2-1.0); CALCIUM 9.6 mg/dL (8.5-10.3); CREATININE 0.9 mg/dL (0.6-1.2); TOTAL PROTEIN 7.8 g/dL (6.7-8.2)
== END 2018-04-29 14:32 | disposition home or self-care (01) ==
LOC: LAB 14:31
PROVIDERS: ATTEND Internal Medicine Cardiovascular Disease
DX: I25.118 Atherosclerotic heart disease of native coronary artery with other forms of angina pectoris (principal)
CPT/HCPCS: 36415; 80053; 84443; 85025

== ENCOUNTER 2018-05-03 14:13 | Outpatient (CLI) | payer MEDICAID ==
[2018-05-03 14:58] LABS: CALCIUM 9.1 mg/dL (8.5-10.3); CREATININE 0.9 mg/dL (0.6-1.2)
== END 2018-05-03 14:14 | disposition home or self-care (01) ==
LOC: LAB 14:13
PROVIDERS: ATTEND Internal Medicine Cardiovascular Disease
DX: I25.118 Atherosclerotic heart disease of native coronary artery with other forms of angina pectoris (principal)
CPT/HCPCS: 36415; 80048

== ENCOUNTER 2018-07-12 21:55 | Emergency (ER) | payer MEDICAID ==
--- NOTE | 2018-07-12 22:23 | ED Physician Documentation ---
PD HPI CHEST PAIN - Stated complaint Stated Complaint: POSS FO INGESTION/CP - Chief complaint Chief Complaint: General - History obtained from History obtained from: Patient - History of Present Illness Timing - onset: How many hours ago (3) Timing - onset during: Eating (had had OJ and an egg about 10 minutes prior, and did not think he had any egg shells in the drink, but is wondering if that might have been the cause of the pain. Had onset of left sternal area pain about 10 minutes after drinking the orange juice and an egg.) Timing - duration: Hours (3) Timing - details: Abrupt onset, Still present, Waxing and waning Quality: Aching, Sharp, Pain Location: Left chest (and is tender to palpation focally at parasternal cartilage) Radiation: No: Jaw, Neck, Back Improved by: Rest Worsened by: Movement, Palpation. No: Inspiration, Position Associated symptoms: No: Shortness of air, Nausea, Vomiting, Feeling faint / dizzy, Palpitations, Cough Similar symptoms before: No diagnosis (has had chest pain episodes in the past, and says he has had negative stress tests twice in the past few years.) Recently seen: Not recently seen Review of Systems Constitutional: denies: Fever Nose: denies: Rhinorrhea / runny nose, Congestion Throat: denies: Sore throat Cardiac: reports: Chest pain / pressure (just this evening, started 3 hours ago). denies: Palpitations, Pedal edema, Calf pain Respiratory: denies: Cough GI: denies: Abdominal Pain, Nausea, Vomiting Skin: denies: Rash, Lesions Musculoskeletal: denies: Extremity swelling Neurologic: denies: Generalized weakness, Focal weakness, Numbness, Near syncope PD PAST MEDICAL HISTORY - Past Medical History Respiratory: None Endocrine/Autoimmune: None GI: GERD, Hiatal hernia, Other : None HEENT: None Psych: None Musculoskeletal: None Derm: None - Past Surgical History Past Surgical History: Yes General: Cholecystectomy, Other Derm: Skin grafts - Present Medications Home Medications: Ambulatory Orders Medication Instructions Recorded Confirmed Pantoprazole Sodium [Protonix] 20 mg PO BID #60 tablet. 03/12/18 Polyethylene Glycol 3350 8.5 g PO DAILY PRN 03/12/18 03/12/18 Sennosides/Docusate Sodium 2 tab PO QPM 03/12/18 03/12/18 [Senna-S Laxative Tablet] Temazepam 7.5 mg PO DAILY PM #30 capsule 03/13/18 Famotidine [Pepcid] 20 mg PO BID #60 tablet 03/15/18 Omeprazole Magnesium [Prilosec] 10 mg PO BID #60 suspdr.pkt 03/15/18 Sucralfate [Carafate] 1 gm PO ACHS #60 tablet 03/15/18 Naproxen 500 mg PO BID #20 tablet 07/12/18 - Allergies Allergies/Adverse Reactions: Allergies Allergy/AdvReac Type Severity Reaction Status Date / Time ondansetron Allergy Severe Respiratory Verified 07/12/18 22:07 acetaminophen [From Vicodin] Allergy Nausea Verified 07/12/18 22:07 hydrocodone bitartrate * Allergy Nausea Verified 07/12/18 22:07 [From Vicodin] - Social History Does the pt smoke?: No Smoking Status: Never smoker Does the pt drink ETOH?: No Does the pt have substance abuse?: No - Family History Family history: reports: CAD - Immunizations Immunizations are current?: Yes - POLST Patient has POLST: No POLST Status: Full Code PD ED PE NORMAL - Vitals Vital signs reviewed: Yes - General General: Alert and oriented X 3, Well developed/nourished - HEENT HEENT: Moist mucous membranes, Pharynx benign - Neck Neck: Supple, no meningeal sign, No adenopathy, No JVD - Cardiac Cardiac: RRR, No murmur - Respiratory Respiratory: Clear bilaterally, Other (focal chestwall tenderness left parasternal without rash, redness, sores. ) - Abdomen Abdomen: Soft, Non tender, No organomegaly, Other - Derm Derm: Normal color, Warm and dry - Extremities Extremities: No deformity, No tenderness to palpate, Normal ROM s pain, No edema - Neuro Neuro: Alert and oriented X 3, No motor deficit, Normal speech Results - Vitals Vitals: Vital Signs - 24 hr 07/12/18 07/12/18 07/12/18 22:03 22:11 23:10 Temperature 36.8 C Heart Rate 67 67 62 Respiratory 17 Rate Blood Pressure 109/94 H 126/80 121/78 O2 Saturation 99 100 100 07/12/18 23:43 Temperature Heart Rate 55 L Respiratory Rate Blood Pressure 120/83 H O2 Saturation 100 Oxygen O2 Source Room air - Rads (name of study) chest xray Radiology: Prelim report reviewed, EMP read contemporaneously (normal), See rad report PD MEDICAL DECISION MAKING - ED course Complexity details: considered differential (No change in symptoms with GI cocktail. It does not sound like reflux nor an injury such as part of an eggshell. He has focal chest wall tenderness and seems musculoskeletal. We will treated with anti-inflammatories. He declines pain medicine.), d/w patient Departure - Departure Disposition: 01 Home, Self Care Clinical Impression: Acute chest wall pain Condition: Stable Record reviewed to determine appropriate education?: Yes Instructions: ED Chest Pain Costochondritis Follow-Up: Karl Fritz MD [Primary Care Provider] - Prescriptions: Naproxen 500 mg PO BID #20 tablet Comments: I do not think this is an esophageal pain such as reflux or from an eggshell in the drink. It seems to be the cartilage in the chest wall presumably some inflammation. I would suggest some ibuprofen or naproxen twice daily for the next week or so and add Tylenol if needed for pain. Recheck if not improved over the next several days. Your chest x-ray was clear and did not look like any lung process. Discharge Date/Time: 07/12/18 23:47
[2018-07-12] MEDS ORDERED: MAG HYDROX/AL HYDROX/SIMETH 30 ML UDC PO STA (22:33)
[2018-07-12] MEDS ORDERED: LIDOCAINE VISCOUS 2% 15 ML UDC MM STA (22:33)
[2018-07-12] MEDS ORDERED: IBUPROFEN 600 MG TABLET PO STA (23:18)
[2018-07-12] MEDS ORDERED: ACETAMINOPHEN 325 MG TABLET PO STA (23:19)
--- NOTE | 2018-07-12 23:36 | XRAY Report ---
Reason: chest pain Procedure Date: 07/12/2018 Accession Number: [id number] / [id number] Procedure: XR - Chest 1 View X-Ray CPT Code: 17419 FULL RESULT: EXAM: CHEST RADIOGRAPHY EXAM DATE: 07/12/2018 11:15 PM. CLINICAL HISTORY: Chest pain. COMPARISON: CHEST 1 VIEW 03/15/2018 2:09 PM. TECHNIQUE: 1 view. FINDINGS: Lungs/Pleura: No focal opacities evident. No pleural effusion. No pneumothorax. Mediastinum: Within exam limitations, the cardiomediastinal contour is normal. Other: None. IMPRESSION: Normal single view chest. RADIA
[2018-07-12 23:44] VITALS: BP 120/83
== END 2018-07-12 23:47 | disposition home or self-care (01) ==
LOC: ED 21:55
DX: R07.89 Other chest pain (principal)
CPT/HCPCS: 71045; 99283; A9270

== ENCOUNTER 2018-08-18 15:32 | Emergency (ER) | payer MEDICAID ==
[2018-08-18 15:39] VITALS: BP 136/60
[2018-08-18 16:11] LABS: BILIRUBIN,URINE NEGATIVE (NEGATIVE); GLUCOSE, URINE (UA) NEGATIVE (NEGATIVE); KETONES,URINE (UA) NEGATIVE (NEGATIVE); LEUKOCYTE ESTERASE, URINE NEGATIVE (NEGATIVE); NITRITE,URINE NEGATIVE (NEGATIVE); OCCULT BLOOD,URINE TRACE-LYSE (NEGATIVE); PH,URINE 5.5 PH (5.0-7.5); PROTEIN,URINE NEGATIVE (NEGATIVE); UROBILINOGEN,URINE 0.2 (NORMAL) E.U./dL (NORMAL)
--- NOTE | 2018-08-18 16:13 | ED Physician Documentation ---
PD HPI ABD PAIN - Stated complaint Stated Complaint: BACK AND STOMACH PAIN - Chief complaint Chief Complaint: Back Pain - History obtained from History obtained from: Patient - History of Present Illness Timing - onset: Yesterday Timing - details: Gradual onset, Waxing and waning Quality: Aching, Pain Location: Other (lower back) Associated symptoms: Fever (He had fever cough congestion and some nausea several days ago that lasted for 2-3 days. Those symptoms improved but he was having some mid to lower back pain develop. He states he is having a little bit of heartburn reflux type symptoms in the epigastric area. He is having pain in the lower back. He denies any lower abdominal pain nor difficulty urinating. He has had slightly less bowel movements and no diarrhea. He is concerned about kidney infection among other things.). No: Dysuria, Hematuria, Near syncope / syncope, Loss of appetite Similar symptoms before: Diagnosis (has recurrent low back pain in the past. Has prior history of GERD/gastritis and used to be on Omeprazole that worked well; got changed to Famotidine by PMD.) Recently seen: Emergency Dept (for back pain) Review of Systems Constitutional: reports: Fever (2-3 days ago, resolved after 1 day) Nose: reports: Congestion. denies: Rhinorrhea / runny nose Throat: denies: Sore throat Respiratory: denies: Cough GI: reports: Abdominal Pain (epigastric arera). denies: Nausea, Vomiting, Diarrhea, Bloody / black stool : denies: Dysuria, Frequency Skin: denies: Rash, Lesions Musculoskeletal: reports: Back pain (lower back without injury ecent.) PD PAST MEDICAL HISTORY - Past Medical History Respiratory: None Endocrine/Autoimmune: None GI: GERD, Hiatal hernia, Other : None HEENT: None Psych: None Musculoskeletal: None, Chronic back pain Derm: None - Past Surgical History Past Surgical History: Yes General: Cholecystectomy, Other Derm: Skin grafts - Present Medications Home Medications: Ambulatory Orders Medication Instructions Recorded Confirmed Famotidine [Pepcid] 20 mg PO BID #60 tablet 03/15/18 Methocarbamol [Robaxin] 500 mg PO Q6H PRN #25 tablet 08/18/18 Omeprazole 20 mg PO DAILY #30 tab 08/18/18 - Allergies Allergies/Adverse Reactions: Allergies Allergy/AdvReac Type Severity Reaction Status Date / Time ondansetron Allergy Severe Respiratory Verified 08/18/18 15:39 acetaminophen [From Vicodin] Allergy Nausea Verified 08/18/18 15:39 hydrocodone bitartrate * Allergy Nausea Verified 08/18/18 15:39 [From Vicodin] hydromorphone [From Dilaudid] Allergy Hives Verified 08/18/18 15:39 - Social History Does the pt smoke?: No Smoking Status: Never smoker Does the pt drink ETOH?: No Does the pt have substance abuse?: No - Immunizations Immunizations are current?: Yes - POLST Patient has POLST: No POLST Status: Full Code PD ED PE NORMAL - Vitals Vital signs reviewed: Yes - General General: Alert and oriented X 3, No acute distress, Well developed/nourished - Neck Neck: Supple, no meningeal sign, No adenopathy - Cardiac Cardiac: RRR, No murmur - Respiratory Respiratory: Clear bilaterally - Abdomen Abdomen: Normal bowel sounds, Soft, Non distended, No organomegaly, Other (mildly tender without guarding in epigastric area. ) Results - Vitals Vitals: Oxygen O2 Source Room air - Labs Labs: Laboratory Tests 08/18/18 16:00 Urine Color YELLOW Urine Clarity CLEAR Urine pH 5.5 Ur Specific [place] >=1.030 H Urine Protein NEGATIVE Urine Glucose (UA) NEGATIVE Urine Ketones NEGATIVE Urine Occult Blood TRACE-LYSE Urine Nitrite NEGATIVE Urine Bilirubin NEGATIVE Urine Urobilinogen 0.2 (NORMAL) Ur Leukocyte Esterase NEGATIVE Ur Microscopic Review NOT INDICATED Urine Culture Comments NOT INDICATED PD MEDICAL DECISION MAKING - ED course Complexity details: reviewed results, considered differential, d/w patient Departure - Departure Disposition: 01 Home, Self Care Clinical Impression: Reflux gastritis Low back strain Qualifiers: Encounter type: initial encounter Qualified Code(s): S39.012A - Strain of muscle, fascia and tendon of lower back, initial encounter Condition: Stable Record reviewed to determine appropriate education?: Yes Instructions: ED Sprain Strain Lumbar Follow-Up: Milan Osorio PA-C [Primary Care Provider] - Prescriptions: Methocarbamol [Robaxin] 500 mg PO Q6H PRN #25 tablet PRN Reason: Spasms Omeprazole 20 mg PO DAILY #30 tab. Comments: For your reflux, you can switch from your current Pepcid to the omeprazole that worked better for you in the past. Add antacid such as Maalox or Mylanta as needed. For the back, I think this is just muscle strain from coughing and you can use some Tylenol for pain and add Robaxin muscle relaxant if needed. Heat and gentle stretching. I think this will improve over the next several days or so. Discharge Date/Time: 08/18/18 16:51
[2018-08-18 16:15] LABS: CLARITY,URINE CLEAR (CLEAR)
[2018-08-18] MEDS ORDERED: MAG HYDROX/AL HYDROX/SIMETH 30 ML UDC PO STA (16:40)
[2018-08-18] MEDS ORDERED: METHOCARBAMOL 500 MG TABLET PO STA (16:40)
[2018-08-18] MEDS ORDERED: ACETAMINOPHEN 325 MG TABLET PO STA (16:40)
== END 2018-08-18 16:51 | disposition home or self-care (01) ==
LOC: ED 15:32
DX: K21.9 Gastro-esophageal reflux disease without esophagitis (principal); K29.70 Gastritis, unspecified, without bleeding; S39.012A Strain of muscle, fascia and tendon of lower back, initial encounter; X58.XXXA Exposure to other specified factors, initial encounter
CPT/HCPCS: 81003; 99283; A9270; 81001; 87086

== ENCOUNTER 2018-10-02 09:01 | Outpatient (CLI) | payer MEDICAID ==
--- NOTE | 2018-10-02 09:46 | Mammography Report ---
Reason: LUMP OR MASS IN BREAST Procedure Date: 10/02/2018 Accession Number: [id number] / [id number] Procedure: BETTY - Diagnostic Dig Bilat CPT Code: FULL RESULT: EXAM: Diagnostic Dig Bilat DATE: 10/02/2018 9:38 AM CLINICAL HISTORY: Painful left breast lump for 2-3 weeks' duration, since resolved. Patient has been asymptomatic for about one month. TECHNIQUE: (B) - Bilateral Bilateral CC and MLO views were obtained. COMPARISON: None PARENCHYMAL PATTERN: FINDINGS: Bilateral breasts: There is a small amount of glandular density in the subareolar breasts bilaterally, left slightly more so than right, consistent with gynecomastia. There are no suspicious masses, calcifications, or areas of distortion. IMPRESSION: Benign findings. BI-RADS category 2. Mild bilateral gynecomastia. RECOMMENDATION: Clinical follow-up only is recommended. Patient should return for further evaluation for recurrence of previous symptoms or new symptoms/concerns. No specific recommendations for imaging follow-up. BI-RADS CATEGORY: (2) - Benign Findings STANDARD QUALIFYING STATEMENTS: 1. This examination was not reviewed with the aid of Computer-Aided Detection (CAD). 2. A negative or benign imaging report should not preclude biopsy if clinically suspicious findings are present. 3. Dense breasts may obscure an underlying neoplasm. 4. This examination was reviewed without the aid of 3D breast imaging (tomosynthesis).
== END 2018-10-02 09:02 | disposition home or self-care (01) ==
LOC: DI 09:01
PROVIDERS: ATTEND Physician Assistant Medical
DX: N62 Hypertrophy of breast (principal)
CPT/HCPCS: 77066

== ENCOUNTER 2018-10-20 18:29 | Emergency (ER) | payer MEDICAID ==
--- NOTE | 2018-10-20 18:46 | ED Physician Documentation ---
PD HPI ABD PAIN - Stated complaint Stated Complaint: BACK/STOMACH PX/MALE - Chief complaint Chief Complaint: Abd Pain - History obtained from History obtained from: Patient - History of Present Illness Timing - onset: How many days ago (He has had a couple of days of some intermittent back and flank pain on both sides but more to the left. He was having some bladder area discomfort in the lower abdomen. He states he has had urinary frequency and urgency. He has some dysuria in the penile shaft and glans area with urinating. He denies any penile discharge. He has not had any scrotal or testicle pains or swelling.) Timing - duration: Days (couple) Timing - details: Gradual onset, Waxing and waning Quality: Cramping, Aching, Pain Location: Suprapubic Radiation: Lower back, Left flank, Right flank Improved by: No: Eating Worsened by: Other (urination). No: Eating Associated symptoms: Dysuria, Loss of appetite. No: Fever, Nausea, Hematuria, Testicular pain Similar symptoms before: Diagnosis (prostatitis) Recently seen: Not recently seen Review of Systems Constitutional: denies: Fever, Chills, Myalgias Nose: denies: Rhinorrhea / runny nose, Congestion Throat: denies: Sore throat Respiratory: denies: Cough GI: reports: Nausea. denies: Abdominal Swelling, Vomiting, Diarrhea : reports: Dysuria, Frequency. denies: Hematuria, Discharge, Testicular pain Skin: denies: Rash, Lesions PD PAST MEDICAL HISTORY - Past Medical History Respiratory: None Endocrine/Autoimmune: None GI: GERD, Hiatal hernia, Other : None HEENT: None Psych: None Musculoskeletal: None, Chronic back pain Derm: None - Past Surgical History Past Surgical History: Yes General: Cholecystectomy, Other Derm: Skin grafts - Present Medications Home Medications: Ambulatory Orders Medication Instructions Recorded Confirmed RX: Omeprazole 20 mg PO DAILY #30 tab 08/18/18 RX: Doxycycline Hyclate 100 mg PO BID #14 capsule 10/20/18 RX: Naproxen 375 mg PO BID #14 tablet 10/20/18 - Allergies Allergies/Adverse Reactions: Allergies Allergy/AdvReac Type Severity Reaction Status Date / Time ondansetron Allergy Severe Respiratory Verified 10/20/18 18:35 acetaminophen [From Vicodin] Allergy Nausea Verified 10/20/18 18:35 hydrocodone bitartrate * Allergy Nausea Verified 10/20/18 18:35 [From Vicodin] hydromorphone [From Dilaudid] Allergy Hives Verified 10/20/18 18:35 - Social History Does the pt smoke?: No Smoking Status: Never smoker Does the pt drink ETOH?: No Does the pt have substance abuse?: No - Immunizations Immunizations are current?: Yes - POLST Patient has POLST: No POLST Status: Full Code PD ED PE NORMAL - Vitals Vital signs reviewed: Yes - General General: Alert and oriented X 3, No acute distress, Well developed/nourished - Neck Neck: Supple, no meningeal sign, No adenopathy - Cardiac Cardiac: RRR, No murmur - Respiratory Respiratory: Clear bilaterally - Abdomen Abdomen: Normal bowel sounds, Non distended - Male Male : Deferred - Derm Derm: Normal color, Warm and dry Results - Vitals Vitals: Vital Signs - 24 hr 10/20/18 10/20/18 18:32 20:27 Temperature 36.8 C Heart Rate 60 55 L Respiratory 16 18 Rate Blood Pressure 115/86 H 126/77 O2 Saturation 99 100 Oxygen O2 Source Room air - Labs Labs: Laboratory Tests 10/20/18 10/20/18 10/20/18 18:45 19:20 19:20 WBC 3.5 L RBC 5.25 Hgb 12.5 L Hct 40.2 L MCV 76.6 L MCH 23.8 L MCHC 31.1 L RDW 14.9 Plt Count 167 MPV 8.5 Neut # (Auto) Not Reportable Lymph # (Auto) Not Reportable [place] # (Auto) Not Reportable Eos # (Auto) Not Reportable Baso # (Auto) Not Reportable Absolute Nucleated RBC Not Reportable Total Counted 100 Band Neuts % (Manual) 0 Abnorm Lymph % (Manual) 0 Nucleated RBC % Not Reportable Neutrophils # (Manual) 0.8 L Lymphocytes # (Manual) 2.2 Monocytes # (Manual) 0.4 Eosinophils # (Manual) 0.1 Basophils # (Manual) 0.0 Differential Comment MANUAL DIFFERENTIAL Manual Slide Review Indicated WBC Morphology NORMAL APPEARANCE Platelet Estimate NORMAL (130-450,000) Platelet Morphology RARE GIANT PLATELETS RBC Morph Micro Appear 1+ MICROCYTOSIS Sodium 138 Potassium 3.8 Chloride 102 Carbon Dioxide 26 Anion Gap 10.0 BUN 17 Creatinine 1.1 Estimated GFR (MDRD) 85 L Glucose 88 Calcium 9.9 Total Bilirubin 0.8 AST 36 ALT 23 Alkaline Phosphatase 33 L Total Protein 8.0 Albumin 4.6 Globulin 3.4 Albumin/Globulin Ratio 1.4 Lipase 48 Urine Color YELLOW Urine Clarity CLEAR Urine pH 6.0 Ur Specific [place] 1.010 Urine Protein NEGATIVE Urine Glucose (UA) NEGATIVE Urine Ketones NEGATIVE Urine Occult Blood TRACE-INTA Urine Nitrite NEGATIVE Urine Bilirubin NEGATIVE Urine Urobilinogen 0.2 (NORMAL) Ur Leukocyte Esterase NEGATIVE Ur Microscopic Review NOT INDICATED Urine Culture Comments NOT INDICATED PD MEDICAL DECISION MAKING - ED course Complexity details: reviewed results, considered differential (He has some level of anxiety but his symptoms are suggestive of genital toe urinary system with some discomfort urinating in the penis and glans area as well as a feeling of urgency and frequency. He has discomfort in the bladder area but not the scrotum or testicles. He also complains of some back pain kind of in the flank area. His urine is clear. Would consider urethritis or prostatitis. His abdomen itself is not really tender so I doubt diverticular or such.), d/w patient Departure - Departure Disposition: Home, Self Care Clinical Impression: Dysuria, Urethritis Condition: Stable Record reviewed to determine appropriate education?: Yes Instructions: ED Urethritis Infec Vs Inflam Male Follow-Up: Milan Osorio PA-C [Primary Care Provider] - Prescriptions: RX: Doxycycline Hyclate 100 mg PO BID #14 capsule RX: Naproxen 375 mg PO BID #14 tablet Comments: Naproxen and doxycycline twice daily for a week. Follow-up Sunday as planned with your provider. Your symptoms sound likely some urethra iritis and this can be inflammatory or infectious. We are treating for both with the above medicines. Stay well-hydrated. Discharge Date/Time: 10/20/18 20:28
[2018-10-20 18:56] LABS: BILIRUBIN,URINE NEGATIVE (NEGATIVE); GLUCOSE, URINE (UA) NEGATIVE (NEGATIVE); KETONES,URINE (UA) NEGATIVE (NEGATIVE); LEUKOCYTE ESTERASE, URINE NEGATIVE (NEGATIVE); NITRITE,URINE NEGATIVE (NEGATIVE); OCCULT BLOOD,URINE TRACE-INTA (NEGATIVE); PROTEIN,URINE NEGATIVE (NEGATIVE); UROBILINOGEN,URINE 0.2 (NORMAL) E.U./dL (NORMAL)
[2018-10-20 18:59] LABS: CLARITY,URINE CLEAR (CLEAR)
[2018-10-20 19:35] LABS: EOSINOPHILS % (AUTO) 2.1 %; HGB - HEMOGLOBIN 12.5 g/dL (14.0-18.0); LYMPHOCYTES % (AUTO) 60.8 %; MEAN CORPUSCULAR HEMOGLOBIN 23.8 pg (27.0-31.0); MEAN CORPUSCULAR HGB CONC 31.1 g/dL (32.0-36.0); MEAN CORPUSCULAR VOLUME 76.6 fL (80.0-94.0); MEAN PLATELET VOLUME 8.5 fL (7.4-11.4); MONOCYTES % (AUTO) 9.2 %; NEUTROPHILS % (AUTO) 26.9 %; PLT - PLATELET COUNT 167 10^3/uL (130-450); RED BLOOD COUNT 5.25 10^6/uL (4.70-6.10); RED CELL DISTRIBUTION WIDTH 14.9 % (12.0-15.0); WHITE BLOOD COUNT 3.5 x10^3/uL (4.8-10.8)
[2018-10-20 19:37] LABS: ABNORMAL LYMPHS % (MANUAL) 0 %; BAND NEUTROPHILS % (MANUAL) 0 %
[2018-10-20 19:38] LABS: ALBUMIN 4.6 g/dL (3.2-5.5); ALBUMIN/GLOBULIN RATIO 1.4 (1.0-2.2); BILIRUBIN,TOTAL 0.8 mg/dL (0.2-1.0); CALCIUM 9.9 mg/dL (8.5-10.3); CREATININE 1.1 mg/dL (0.6-1.2)
[2018-10-20 19:51] LABS: BASOPHILS % (MANUAL) 1 %; EOSINOPHILS # (MANUAL) 0.1 10^3/uL (0-0.7); LYMPHOCYTES # (MANUAL) 2.2 10^3/uL (1.5-3.5); LYMPHOCYTES % (MANUAL) 62 %; MONOCYTES # (MANUAL) 0.4 10^3/uL (0.0-1.0); NEUTROPHILS # (MANUAL) 0.8 10^3/uL (1.5-6.6); NEUTROPHILS % (MANUAL) 23 %
[2018-10-20 19:52] LABS: DIFFERENTIAL COMMENT MANUAL DIFFERENTIAL; PLATELET ESTIMATE, MANUAL NORMAL (130-450,000) (NORMAL); PLATELET MORPHOLOGY RARE GIANT PLATELETS (NORMAL)
[2018-10-20] MEDS ORDERED: NAPROXEN 250 MG TABLET PO STA (20:16)
[2018-10-20] MEDS ORDERED: DOXYCYCLINE 100 MG TABLET PO STA (20:16)
[2018-10-20 20:28] VITALS: BP 126/77
== END 2018-10-20 20:28 | disposition home or self-care (01) ==
LOC: ED 18:29
DX: N34.2 Other urethritis (principal)
CPT/HCPCS: 36415; 80053; 81003; 83690; 85025; 99283; A9270; 81001; 87086

== ENCOUNTER 2018-11-09 08:25 | Emergency (ER) | payer MEDICAID ==
[2018-11-09 08:36] VITALS: BP 133/85
--- NOTE | 2018-11-09 08:41 | ED Physician Documentation ---
PD HPI MALE - Stated complaint Stated Complaint: ABD PX - Chief complaint Chief Complaint: Abd Pain - History obtained from History obtained from: Patient - History of Present Illness Timing - onset: How many days ago (5) Timing - duration: Days (5) Timing - details: Gradual onset, Still present Associated symptoms: Dysuria, Abdominal pain, Back pain. No: Discharge, Testiclar pain, Scrotal swelling Similar symptoms before: Diagnosis (prostatitis) Recently seen: Emergency Dept - Additional information Additional information: 53-year-old male seen in the emergency department 3 weeks ago with prostatitis had improvement in his symptoms with use of doxycycline. He states that his symptoms were resolved and then slowly over the last several days he has had a recurrence of his symptoms. He is having some irritation in his lower abdomen some sensations in his urethra and his rectum. He tolerated the doxycycline well. Review of Systems Constitutional: denies: Fever Eyes: denies: Decreased vision Ears: denies: Ear pain Nose: denies: Congestion Throat: denies: Sore throat Respiratory: denies: Cough GI: reports: Abdominal Pain. denies: Vomiting, Constipation, Diarrhea : reports: Dysuria PD PAST MEDICAL HISTORY - Past Medical History Respiratory: None Endocrine/Autoimmune: None GI: GERD, Hiatal hernia, Other : None HEENT: None Psych: None Musculoskeletal: None, Chronic back pain Derm: None - Past Surgical History Past Surgical History: Yes General: Cholecystectomy, Other Derm: Skin grafts - Present Medications Home Medications: Ambulatory Orders Medication Instructions Recorded Confirmed Omeprazole 20 mg PO DAILY #30 tab 08/18/18 Doxycycline Hyclate 100 mg PO BID #14 capsule 10/20/18 Naproxen 375 mg PO BID #14 tablet 10/20/18 Doxycycline Hyclate 100 mg PO BID #28 capsule 11/09/18 Naproxen 375 mg PO BID PRN #20 tablet 11/09/18 - Allergies Allergies/Adverse Reactions: Allergies Allergy/AdvReac Type Severity Reaction Status Date / Time ondansetron Allergy Severe Respiratory Verified 11/09/18 08:36 acetaminophen [From Vicodin] Allergy Nausea Verified 11/09/18 08:36 hydrocodone bitartrate * Allergy Nausea Verified 11/09/18 08:36 [From Vicodin] hydromorphone [From Dilaudid] Allergy Hives Verified 11/09/18 08:36 - Social History Does the pt smoke?: No Smoking Status: Never smoker Does the pt drink ETOH?: No Does the pt have substance abuse?: No - Immunizations Immunizations are current?: Yes - POLST Patient has POLST: No POLST Status: Full Code PD ED PE NORMAL - Vitals Vital signs reviewed: Yes (hypertnesive mild ) - General General: Alert and oriented X 3, No acute distress, Well developed/nourished - HEENT HEENT: Atraumatic, PERRL, EOMI - Neck Neck: Supple, no meningeal sign, No bony TTP - Respiratory Respiratory: No respiratory distress - Back Back: No CVA TTP, No spinal TTP - Derm Derm: Normal color, Warm and dry, No rash - Extremities Extremities: No deformity, No edema - Neuro Neuro: Alert and oriented X 3, heel reducer 2-12 intact, No motor deficit, No sensory deficit, Normal speech Eye Opening: Spontaneous Motor: Obeys Commands Verbal: Oriented GCS Score: 15 - Psych Psych: Normal mood, Normal affect Results - Vitals Vitals: Vital Signs - 24 hr 11/09/18 08:31 Temperature 97.8 C H Heart Rate 70 Respiratory 12 Rate Blood Pressure 133/85 H O2 Saturation 100 Oxygen O2 Source Room air PD MEDICAL DECISION MAKING - ED course Complexity details: considered differential, d/w patient ED course: 53-year-old male with recent history of prostatitis has had recurrence of his symptoms after discontinuing antibiotic he had been on a one-week course of doxycycline. I will provide the patient with a 2-week course and he does have follow-up with his primary care doctor in 3 days. Departure - Departure Disposition: 01 Home, Self Care Clinical Impression: Prostatitis Qualifiers: Prostatitis type: acute Qualified Code(s): N41.0 - Acute prostatitis Condition: Stable Instructions: ED Prostatitis Follow-Up: Milan Osorio PA-C [Primary Care Provider] - Prescriptions: Doxycycline Hyclate 100 mg PO BID #28 capsule Naproxen 375 mg PO BID PRN #20 tablet PRN Reason: Pain
== END 2018-11-09 09:11 | disposition home or self-care (01) ==
LOC: ED 08:25
DX: N41.0 Acute prostatitis (principal); K21.9 Gastro-esophageal reflux disease without esophagitis; K44.9 Diaphragmatic hernia without obstruction or gangrene; G89.29 Other chronic pain; M54.9 Dorsalgia, unspecified
CPT/HCPCS: 99283

== ENCOUNTER 2018-11-12 08:00 | Outpatient (CLI) | payer MEDICAID ==
[2018-11-12 13:05] LABS: PSA FREE 0.13 ng/mL (0.16-2.81)
[2018-11-12 13:06] LABS: PSA TOTAL 0.4 ng/mL (0.000-2.000)
== END 2018-11-12 23:59 | disposition home or self-care (01) ==
LOC: LAB.N 08:00
PROVIDERS: ATTEND Nurse Practitioner Gerontology
DX: N41.9 Inflammatory disease of prostate, unspecified (principal)
CPT/HCPCS: 36415; 84153; 84154; 87086; 87491; 87591

== ENCOUNTER 2018-11-21 17:57 | Emergency (ER) | payer MEDICAID ==
[2018-11-21 18:29] LABS: BILIRUBIN,URINE NEGATIVE (NEGATIVE); GLUCOSE, URINE (UA) NEGATIVE (NEGATIVE); KETONES,URINE (UA) NEGATIVE (NEGATIVE); LEUKOCYTE ESTERASE, URINE NEGATIVE (NEGATIVE); NITRITE,URINE NEGATIVE (NEGATIVE); OCCULT BLOOD,URINE TRACE-INTA (NEGATIVE); PH,URINE 5.5 PH (5.0-7.5); PROTEIN,URINE NEGATIVE (NEGATIVE); UROBILINOGEN,URINE 0.2 (NORMAL) E.U./dL (NORMAL)
[2018-11-21 18:30] LABS: CLARITY,URINE CLEAR (CLEAR)
[2018-11-21] MEDS ORDERED: oxyCODONE 5 MG TABLET PO STA (18:30)
--- NOTE | 2018-11-21 18:30 | ED Physician Documentation ---
History of Present Illness - Stated complaint Stated Complaint: MALE - Chief complaint Chief Complaint: General - History obtained from History obtained from: Patient - History of Present Illness Timing: Other (Is a 53-year-old gentleman who comes in with complaints of testicular irritation, penile irritation. He sent been seen twice for this and diagnosed with prostatitis and put on doxycycline which helped briefly. He did not have any prostate exams per him on those visits. He has a lot of worries today and has been spending a lot of time on [place].) Review of Systems Ten Systems: 10 systems reviewed and negative Constitutional: denies: Fever, Chills Cardiac: denies: Chest pain / pressure, Palpitations Respiratory: denies: Dyspnea, Cough PD PAST MEDICAL HISTORY - Past Medical History Respiratory: None Endocrine/Autoimmune: None GI: GERD, Hiatal hernia, Other : None HEENT: None Psych: None Musculoskeletal: None, Chronic back pain Derm: None - Past Surgical History Past Surgical History: Yes General: Cholecystectomy, Other Derm: Skin grafts - Present Medications Home Medications: Ambulatory Orders Medication Instructions Recorded Confirmed Omeprazole 20 mg PO DAILY #30 tab. 08/18/18 Doxycycline Hyclate 100 mg PO BID #14 capsule 10/20/18 Naproxen 375 mg PO BID #14 tablet 10/20/18 Doxycycline Hyclate 100 mg PO BID #28 capsule 11/09/18 Naproxen 375 mg PO BID PRN #20 tablet 11/09/18 Oxycodone HCl/Acetaminophen 1 - 2 each PO Q6H PRN #10 tablet 11/21/18 [Percocet 5-325 mg Tablet] - Allergies Allergies/Adverse Reactions: Allergies Allergy/AdvReac Type Severity Reaction Status Date / Time ondansetron Allergy Severe Respiratory Verified 11/21/18 18:03 acetaminophen [From Vicodin] Allergy Nausea Verified 11/21/18 18:03 hydrocodone bitartrate * Allergy Nausea Verified 11/21/18 18:03 [From Vicodin] hydromorphone [From Dilaudid] Allergy Hives Verified 11/21/18 18:03 - Social History Does the pt smoke?: No Smoking Status: Never smoker Does the pt drink ETOH?: No Does the pt have substance abuse?: No - Immunizations Immunizations are current?: Yes - POLST Patient has POLST: No POLST Status: Full Code PD ED PE NORMAL - Vitals Vital signs reviewed: Yes - General General: Alert and oriented X 3, Other (anxious) - Abdomen Abdomen: Soft, Non tender - Male Male : Other (Mild tenderness of the left superior testicle with normal lie, normal cremaster reflexes bilaterally. Normal penis. No prostate tenderness or enlargement on rectal exam.) - Extremities Extremities: No edema, No calf tenderness / cord - Neuro Neuro: Alert and oriented X 3, Normal speech Results - Vitals Vitals: Vital Signs - 24 hr 11/21/18 11/21/18 18:00 18:33 Temperature 37.0 C Heart Rate 63 Respiratory 14 18 Rate Blood Pressure 126/74 O2 Saturation 100 Oxygen O2 Source Room air - Labs Labs: Laboratory Tests 11/21/18 11/21/18 11/21/18 18:21 18:47 18:47 WBC 3.6 L RBC 4.78 Hgb 11.5 L Hct 36.5 L MCV 76.4 L MCH 24.0 L MCHC 31.4 L RDW 14.7 Plt Count 161 MPV 8.6 Neut # (Auto) 1.1 L Lymph # (Auto) 2.0 [place] # (Auto) 0.3 Eos # (Auto) 0.1 Baso # (Auto) 0.0 Absolute Nucleated RBC 0.01 Nucleated RBC % 0.1 Manual Slide Review Indicated WBC Morphology NORMAL APPEARANCE Platelet Estimate NORMAL (130-450,000) Platelet Morphology 1+ LARGE PLATELETS RBC Morph Micro Appear 1+ MICROCYTOSIS Sodium 137 Potassium 3.5 Chloride 102 Carbon Dioxide 24 Anion Gap 11.0 BUN 16 Creatinine 0.8 Estimated GFR (MDRD) 123 Glucose 122 H Calcium 9.5 Total Bilirubin 1.0 AST 21 ALT 18 Alkaline Phosphatase 33 L Total Protein 7.3 Albumin 4.5 Globulin 2.8 Albumin/Globulin Ratio 1.6 Lipase 41 Urine Color YELLOW Urine Clarity CLEAR Urine pH 5.5 Ur Specific [place] >=1.030 H Urine Protein NEGATIVE Urine Glucose (UA) NEGATIVE Urine Ketones NEGATIVE Urine Occult Blood TRACE-INTA Urine Nitrite NEGATIVE Urine Bilirubin NEGATIVE Urine Urobilinogen 0.2 (NORMAL) Ur Leukocyte Esterase NEGATIVE Ur Microscopic Review NOT INDICATED Urine Culture Comments NOT INDICATED - Rads (name of study) tesicular sono Radiology: EMP read contemporaneously (left varicocele, otherwise nad) PD MEDICAL DECISION MAKING - ED course ED course: 53-year-old gentleman with ongoing groin and scrotal pain, his examination is relatively unremarkable. There is clearly an overlying anxiety component. He has been treated for prostatitis but there is no evidence of that today. He has a chronic mild pancytopenia which is unchanged from prior, and an ultrasound and urinalysis were negative. Departure - Departure Disposition: Home, Self Care Clinical Impression: Urinary frequency Condition: Good Record reviewed to determine appropriate education?: Yes Instructions: ED Urethritis Infec Vs Inflam Male Follow-Up: Nura Benites DO [Physician No Access] - Prescriptions: Oxycodone HCl/Acetaminophen [Percocet 5-325 mg Tablet] 1 - 2 each PO Q6H PRN #10 tablet PRN Reason: pain Comments: Reasonable to follow-up with urologist, given the chronic nature of your issues. One is listed on this form that you can call for an appointment for follow-up. Return for new or worsening symptoms. I do not see any indication for further antibiotic treatment.
[2018-11-21 19:02] LABS: BASOPHILS % (AUTO) 0.9 %; EOSINOPHILS # (AUTO) 0.1 10^3/uL (0.0-0.7); EOSINOPHILS % (AUTO) 2.4 %; HGB - HEMOGLOBIN 11.5 g/dL (14.0-18.0); LYMPHOCYTES % (AUTO) 56.8 %; MEAN CORPUSCULAR HGB CONC 31.4 g/dL (32.0-36.0); MEAN CORPUSCULAR VOLUME 76.4 fL (80.0-94.0); MEAN PLATELET VOLUME 8.6 fL (7.4-11.4); MONOCYTES # (AUTO) 0.3 10^3/uL (0.0-1.0); MONOCYTES % (AUTO) 8.2 %; NEUTROPHILS # (AUTO) 1.1 10^3/uL (1.5-6.6); NEUTROPHILS % (AUTO) 31.7 %; PLT - PLATELET COUNT 161 10^3/uL (130-450); RED BLOOD COUNT 4.78 10^6/uL (4.70-6.10); RED CELL DISTRIBUTION WIDTH 14.7 % (12.0-15.0); WHITE BLOOD COUNT 3.6 x10^3/uL (4.8-10.8)
[2018-11-21 19:07] LABS: ALBUMIN 4.5 g/dL (3.2-5.5); ALBUMIN/GLOBULIN RATIO 1.6 (1.0-2.2); CALCIUM 9.5 mg/dL (8.5-10.3); CREATININE 0.8 mg/dL (0.6-1.2); TOTAL PROTEIN 7.3 g/dL (6.7-8.2)
[2018-11-21 19:23] LABS: PLATELET ESTIMATE, MANUAL NORMAL (130-450,000) (NORMAL); PLATELET MORPHOLOGY 1+ LARGE PLATELETS (NORMAL)
--- NOTE | 2018-11-21 20:06 | Ultrasound Report ---
Reason: testicular pain Procedure Date: 11/21/2018 Accession Number: [id number] / [id number] Procedure: US - Testicle w/Doppler CPT Code: FULL RESULT: EXAM: SCROTAL ULTRASOUND EXAM DATE: 11/21/2018 07:13 PM. CLINICAL HISTORY: Testicular pain. COMPARISON: None. TECHNIQUE: Real-time scanning was performed with static images obtained. Color-flow images were utilized. FINDINGS: Right: Testis: 4.2 x 1.9 x 2.8 cm. Normal size and echotexture. No mass, calcification, or abnormal blood flow. Epididymis: 0.7 x 1.1 x 1.5 cm. Normal size and echotexture. No mass or abnormal blood flow. Hydrocele: None. Varicocele: None. Left: Testis: 3.8 x 1.6 x 2.4 cm. Normal size and echotexture. No mass, calcification, or abnormal blood flow. Epididymis: 0.6 x 0.7 x 0.7 cm. Normal size and echotexture. No mass or abnormal blood flow. Hydrocele: None. Varicocele: Mild measuring 2-3 mm in diameter. IMPRESSION: 1. Left varicoceles. 2. Otherwise unremarkable scrotal ultrasound exam. [facility]
[2018-11-21 20:15] VITALS: BP 145/78
[2018-11-21 23:46] LABS: TRICHOMONAS VAGINALIS DNA NEGATIVE (NEGATIVE)
== END 2018-11-21 20:14 | disposition home or self-care (01) ==
LOC: ED 17:57
DX: R35.0 Frequency of micturition (principal); N50.812 Left testicular pain; R10.2 Pelvic and perineal pain; D61.818 Other pancytopenia; F41.9 Anxiety disorder, unspecified
CPT/HCPCS: 36415; 76870; 80053; 81003; 83690; 85025; 87491; 87591; 87661; 93975; 99283; A9270; 80048; 81001; 87086

== ENCOUNTER 2018-12-06 10:58 | Emergency (ER) | payer MEDICAID ==
[2018-12-06 11:37] VITALS: BP 136/86
--- NOTE | 2018-12-06 14:04 | ED Physician Documentation ---
PD HPI MALE - Stated complaint Stated Complaint: MALE /MED REFILL - Chief complaint Chief Complaint: General - History obtained from History obtained from: Patient - History of Present Illness Timing - onset: How many days ago (5) Timing - duration: Days (5) Timing - details: Gradual onset, Still present Associated symptoms: Dysuria, Discharge PD HPI MALE CONTRIB FACTORS: Sexually active Similar symptoms before: Diagnosis (urethritis) Recently seen: Emergency Dept - Additional information Additional information: 53-year-old male is complained of some burning on urination and a slight discharge from the tip of the penis. He has had symptoms improve with the use of doxycycline. Previously and he is come back into the emergency department and at that time was prescribed just the Percocet for the pain and the patient continued to have symptoms. He is come back and now requesting specifically the doxycycline. He does not think he has an STD but he does have a follow-up appointment with a urologist. Review of Systems Constitutional: denies: Fever Eyes: denies: Decreased vision Ears: denies: Ear pain Nose: denies: Congestion Throat: denies: Sore throat Cardiac: denies: Chest pain / pressure, Palpitations Respiratory: denies: Dyspnea, Cough GI: denies: Abdominal Pain, Nausea, Vomiting : reports: Dysuria, Discharge. denies: Frequency Skin: denies: Rash, Lesions PD PAST MEDICAL HISTORY - Past Medical History Respiratory: None Endocrine/Autoimmune: None GI: GERD, Hiatal hernia, Other : None HEENT: None Psych: None Musculoskeletal: None, Chronic back pain Derm: None - Past Surgical History Past Surgical History: Yes General: Cholecystectomy, Other Derm: Skin grafts - Present Medications Home Medications: Ambulatory Orders Medication Instructions Recorded Confirmed RX: Omeprazole 20 mg PO DAILY #30 tab 08/18/18 RX: Doxycycline Hyclate 100 mg PO BID #14 capsule 10/20/18 RX: Naproxen 375 mg PO BID #14 tablet 10/20/18 RX: Doxycycline Hyclate 100 mg PO BID #28 capsule 11/09/18 RX: Naproxen 375 mg PO BID PRN #20 tablet 11/09/18 Oxycodone HCl/Acetaminophen 1 - 2 each PO Q6H PRN #10 tablet 11/21/18 [Percocet 5-325 mg Tablet] RX: Doxycycline Hyclate 100 mg PO BID #28 capsule 12/06/18 - Allergies Allergies/Adverse Reactions: Allergies Allergy/AdvReac Type Severity Reaction Status Date / Time ondansetron Allergy Severe Respiratory Verified 12/06/18 11:37 acetaminophen [From Vicodin] Allergy Nausea Verified 12/06/18 11:37 hydrocodone bitartrate * Allergy Nausea Verified 12/06/18 11:37 [From Vicodin] hydromorphone [From Dilaudid] Allergy Hives Verified 12/06/18 11:37 - Social History Does the pt smoke?: No Smoking Status: Never smoker Does the pt drink ETOH?: No Does the pt have substance abuse?: No - Immunizations Immunizations are current?: Yes - POLST Patient has POLST: No POLST Status: Full Code PD ED PE NORMAL - Vitals Vital signs reviewed: Yes (hypertensive ) - General General: No acute distress, Well developed/nourished - HEENT HEENT: Atraumatic, PERRL, EOMI - Respiratory Respiratory: No respiratory distress - Derm Derm: Normal color, Warm and dry, No rash - Extremities Extremities: No deformity, No edema - Neuro Neuro: Alert and oriented X 3, direct customer service representative 2-12 intact, No motor deficit, No sensory deficit, Normal speech Eye Opening: Spontaneous Motor: Obeys Commands Verbal: Oriented GCS Score: 15 - Psych Psych: Normal mood, Normal affect Results - Vitals Vitals: Vital Signs - 24 hr 12/06/18 11:34 Temperature 36.7 C Heart Rate 71 Respiratory 14 Rate Blood Pressure 136/86 H O2 Saturation 100 Oxygen O2 Source Room air PD MEDICAL DECISION MAKING - ED course Complexity details: reviewed old records, reviewed results, re-evaluated patient, considered differential, d/w patient ED course: Treated with doxy for one week in September with improvement and in October for 2 weeks with improvement and when he tried just the oxycodone this did not improve his symptoms. He is requesting more doxycycline and he has an appointment to see a urologist in follow up. I went to perform a swab of the urethra and this week we have switched to BD Max with urine collection being the sample required. This was not ordered and the patient was treated for urethritis with doxycycline and he will continue with his follow up. Departure - Departure Disposition: 01 Home, Self Care Clinical Impression: Urethritis Instructions: ED Urethritis Infec Vs Inflam Male Follow-Up: Devon,Milan, PA-C [Primary Care Provider] - Prescriptions: RX: Doxycycline Hyclate 100 mg PO BID #28 capsule Discharge Date/Time: 12/06/18 14:27
== END 2018-12-06 14:27 | disposition home or self-care (01) ==
LOC: ED 10:58
DX: N34.2 Other urethritis (principal)
CPT/HCPCS: 99283

== ENCOUNTER 2019-01-03 09:58 | Emergency (ER) | payer MEDICAID ==
--- NOTE | 2019-01-03 11:54 | ED Physician Documentation ---
PD HPI MALE - Stated complaint Stated Complaint: MED REFILL - Chief complaint Chief Complaint: General - History obtained from History obtained from: Patient - History of Present Illness Timing - onset: How many days ago (several) Timing - details: Gradual onset Associated symptoms: Dysuria PD HPI MALE CONTRIB FACTORS: Sexually active (Monogamous relationship with his .) Similar symptoms before: Diagnosis (Urethritis, treated with doxycycline as recently as one month ago.) - Additional information Additional information: The patient is a 53-year-old male who complains of dysuria that recurred several days ago after completing a second course of doxycycline that was prescribed one month ago. He had temporary improvement while on doxycycline but his symptoms have resumed since completion of the antibiotics and after resumed sexual intercourse with his . He denies abdominal pain, fever, or penile discharge. He has been treated presumptively in the past, without urethral culture. Review of Systems Constitutional: denies: Fever Nose: denies: Congestion Throat: denies: Sore throat Respiratory: denies: Cough GI: denies: Abdominal Pain, Nausea, Vomiting : reports: Dysuria. denies: Discharge, Testicular pain Skin: denies: Rash Musculoskeletal: denies: Back pain Neurologic: denies: Headache PD PAST MEDICAL HISTORY - Past Medical History Respiratory: None Endocrine/Autoimmune: None GI: GERD, Hiatal hernia, Other : None HEENT: None Psych: None Musculoskeletal: None, Chronic back pain Derm: None - Past Surgical History Past Surgical History: Yes General: Cholecystectomy, Other Derm: Skin grafts - Present Medications Home Medications: Ambulatory Orders Medication Instructions Recorded Confirmed Omeprazole 20 mg PO DAILY #30 tab 08/18/18 Doxycycline Hyclate 100 mg PO BID #14 capsule 10/20/18 Naproxen 375 mg PO BID #14 tablet 10/20/18 Doxycycline Hyclate 100 mg PO BID #28 capsule 11/09/18 Naproxen 375 mg PO BID PRN #20 tablet 11/09/18 Oxycodone HCl/Acetaminophen 1 - 2 each PO Q6H PRN #10 tablet 11/21/18 [Percocet 5-325 mg Tablet] Doxycycline Hyclate 100 mg PO BID #28 capsule 12/06/18 Doxycycline Hyclate 100 mg PO BID #20 capsule 01/03/19 Phenazopyridine HCl [Pyridium] 200 mg PO TID PRN #6 tablet 01/03/19 - Allergies Allergies/Adverse Reactions: Allergies Allergy/AdvReac Type Severity Reaction Status Date / Time ondansetron Allergy Severe Respiratory Verified 01/03/19 10:10 acetaminophen [From Vicodin] Allergy Nausea Verified 01/03/19 10:10 hydrocodone bitartrate * Allergy Nausea Verified 01/03/19 10:10 [From Vicodin] hydromorphone [From Dilaudid] Allergy Hives Verified 01/03/19 10:10 - Social History Does the pt smoke?: No Smoking Status: Never smoker Does the pt drink ETOH?: No Does the pt have substance abuse?: No - Immunizations Immunizations are current?: Yes - POLST Patient has POLST: No POLST Status: Full Code PD ED PE NORMAL - Vitals Vital signs reviewed: Yes (normal) - General General: Alert and oriented X 3, Well developed/nourished - HEENT HEENT: Atraumatic - Cardiac Cardiac: RRR - Respiratory Respiratory: No respiratory distress - Abdomen Abdomen: Soft, Non tender - Back Back: No CVA TTP - Derm Derm: No rash - Extremities Extremities: No edema - Neuro Neuro: Alert and oriented X 3, Normal speech PD ED PE EXPANDED - Male Male : Circumcised, Testes descended nilesh, Cultures sent. No: Skin lesions, Discharge, Tenderness Results - Vitals Vitals: Oxygen O2 Source Room air - Labs Labs: Laboratory Tests 01/03/19 01/03/19 11:50 11:50 Urine Color YELLOW Urine Clarity CLEAR Urine pH 5.5 Ur Specific [place] 1.025 Urine Protein NEGATIVE Urine Glucose (UA) NEGATIVE Urine Ketones NEGATIVE Urine Occult Blood TRACE-INTA Urine Nitrite NEGATIVE Urine Bilirubin NEGATIVE Urine Urobilinogen 0.2 (NORMAL) Ur Leukocyte Esterase NEGATIVE Ur Microscopic Review NOT INDICATED Urine Culture Comments NOT INDICATED Chlam trachomat DNA PCR NEGATIVE N.gonorrhoeae DNA (PCR) NEGATIVE T. vaginalis (PCR) TNP PD MEDICAL DECISION MAKING - ED course Complexity details: reviewed old records, reviewed results, re-evaluated patient, considered differential, d/w patient ED course: The patient's presentation is most consistent with recurrent urethritis. Urinalysis is negative for UTI. Culture for GC and chlamydia is pending. He is being discharged with prescriptions for doxycycline and for Pyridium. I discussed with him follow-up for culture results, outpatient treatment and follow-up, as well as potentially worrisome signs or symptoms that should prompt reevaluation is needed emergency department. Departure - Departure Disposition: 01 Home, Self Care Clinical Impression: Urethritis Condition: Stable Instructions: ED Urethritis Infec Vs Inflam Male Prescriptions: Doxycycline Hyclate 100 mg PO BID #20 capsule Phenazopyridine HCl [Pyridium] 200 mg PO TID PRN #6 tablet PRN Reason: dysuria Comments: Take doxycycline twice daily as prescribed. You can use Pyridium as prescribed if needed for painful urination. The culture from the urethral test will come back in about 2 days. If it is positive you will be getting a call from us. Follow-up with your primary physician within 1 to 2 weeks. Call to schedule appointment. Return to the emergency department if you develop increasing pain with urination, or otherwise worsening symptoms. Discharge Date/Time: 01/03/19 13:15
[2019-01-03 12:38] LABS: BILIRUBIN,URINE NEGATIVE (NEGATIVE); GLUCOSE, URINE (UA) NEGATIVE (NEGATIVE); KETONES,URINE (UA) NEGATIVE (NEGATIVE); LEUKOCYTE ESTERASE, URINE NEGATIVE (NEGATIVE); NITRITE,URINE NEGATIVE (NEGATIVE); OCCULT BLOOD,URINE TRACE-INTA (NEGATIVE); PH,URINE 5.5 PH (5.0-7.5); PROTEIN,URINE NEGATIVE (NEGATIVE); UROBILINOGEN,URINE 0.2 (NORMAL) E.U./dL (NORMAL)
[2019-01-03 12:41] LABS: CLARITY,URINE CLEAR (CLEAR)
[2019-01-03 13:17] VITALS: BP 130/70
== END 2019-01-03 13:15 | disposition home or self-care (01) ==
LOC: ED 09:58
DX: N34.2 Other urethritis (principal)
CPT/HCPCS: 81001; 81003; 87086; 87491; 87591; 87661; 99283

== ENCOUNTER 2019-01-14 17:22 | Outpatient (CLI) | payer MEDICAID ==
[2019-01-14 13:53] LABS: BILIRUBIN,URINE NEGATIVE (NEGATIVE); GLUCOSE, URINE (UA) NEGATIVE (NEGATIVE); KETONES,URINE (UA) NEGATIVE (NEGATIVE); LEUKOCYTE ESTERASE, URINE NEGATIVE (NEGATIVE); NITRITE,URINE NEGATIVE (NEGATIVE); OCCULT BLOOD,URINE TRACE-LYSE (NEGATIVE); PROTEIN,URINE NEGATIVE (NEGATIVE); UROBILINOGEN,URINE 0.2 (NORMAL) E.U./dL (NORMAL)
[2019-01-14 13:54] LABS: CLARITY,URINE CLEAR (CLEAR)
== END 2019-01-14 23:59 | disposition home or self-care (01) ==
LOC: LAB.R 17:22
PROVIDERS: ATTEND Physician Assistant Medical
DX: R30.9 Painful micturition, unspecified (principal)
CPT/HCPCS: 81001; 81003; 87086

== ENCOUNTER 2019-02-17 07:51 | Emergency (ER) | payer MEDICAID ==
[2019-02-17 08:01] VITALS: BP 122/57
--- NOTE | 2019-02-17 08:18 | ED Physician Documentation ---
PD HPI MALE - Stated complaint Stated Complaint: MALE - Chief complaint Chief Complaint: Abd Pain - History obtained from History obtained from: Patient - History of Present Illness Timing - onset: How many days ago (4) Timing - duration: Days (4) Timing - details: Gradual onset, Still present Associated symptoms: Dysuria, Other (rectal pain/buring) Similar symptoms before: Diagnosis (urethritis) Recently seen: Emergency Dept - Additional information Additional information: 53-year-old male who over the past 4 months has had recurrent episodes of urethral discomfort has had improvement each time while taking doxycycline. He has had recurrence of his symptoms after completing antibiotic therapy within a few weeks. Of time. He has been into see the urologist and he has begin to schedule colonoscopy as well. Patient complains of symptoms now of rectal burning and dysuria as well as discomfort when sitting. He has not had fever he has not had vomiting. He has been treated here in the emergency department for x4 urethritis or prostatitis. He has had follow-up with a urologist. He has had one prostate exam done during antibiotic therapy that was normal. Review of Systems Constitutional: denies: Fever Eyes: denies: Decreased vision Ears: denies: Ear pain Nose: denies: Congestion Throat: denies: Sore throat Respiratory: denies: Cough GI: reports: Other (rectal pain). denies: Abdominal Pain, Nausea, Vomiting : reports: Dysuria. denies: Discharge PD PAST MEDICAL HISTORY - Past Medical History Respiratory: None Endocrine/Autoimmune: None GI: GERD, Hiatal hernia, Other : None HEENT: None Psych: None Musculoskeletal: None, Chronic back pain Derm: None - Past Surgical History Past Surgical History: Yes General: Cholecystectomy, Other Derm: Skin grafts - Present Medications Home Medications: Ambulatory Orders Medication Instructions Recorded Confirmed Omeprazole 20 mg PO DAILY #30 tab 08/18/18 Doxycycline Hyclate 100 mg PO BID #14 capsule 10/20/18 Naproxen 375 mg PO BID #14 tablet 10/20/18 Doxycycline Hyclate 100 mg PO BID #28 capsule 11/09/18 Naproxen 375 mg PO BID PRN #20 tablet 11/09/18 Oxycodone HCl/Acetaminophen 1 - 2 each PO Q6H PRN #10 tablet 11/21/18 [Percocet 5-325 mg Tablet] Doxycycline Hyclate 100 mg PO BID #28 capsule 12/06/18 Doxycycline Hyclate 100 mg PO BID #20 capsule 01/03/19 Phenazopyridine HCl [Pyridium] 200 mg PO TID PRN #6 tablet 01/03/19 Doxycycline Hyclate 100 mg PO BID #28 capsule 02/17/19 traMADol [Ultram] 50 - 100 mg PO Q6H PRN #20 tablet 02/17/19 - Allergies Allergies/Adverse Reactions: Allergies Allergy/AdvReac Type Severity Reaction Status Date / Time ondansetron Allergy Severe Respiratory Verified 02/17/19 08:01 acetaminophen [From Vicodin] Allergy Nausea Verified 02/17/19 08:01 hydrocodone bitartrate * Allergy Nausea Verified 02/17/19 08:01 [From Vicodin] hydromorphone [From Dilaudid] Allergy Hives Verified 02/17/19 08:01 - Social History Does the pt smoke?: No Smoking Status: Never smoker Does the pt drink ETOH?: No Does the pt have substance abuse?: No - Immunizations Immunizations are current?: Yes - POLST Patient has POLST: No POLST Status: Full Code PD ED PE NORMAL - Vitals Vital signs reviewed: Yes (normal ) - General General: Alert and oriented X 3, No acute distress, Well developed/nourished, Other (mildly anxious ) - HEENT HEENT: Atraumatic, PERRL, EOMI - Respiratory Respiratory: No respiratory distress - Rectal Rectal: Other (external hemorrhoids are present and not thrombosed. The prostate is smooth but very tender with lasting pain after exam. There was no bogginess. ) - Derm Derm: Normal color, Warm and dry, No rash - Extremities Extremities: No deformity, No edema - Neuro Neuro: Alert and oriented X 3, citizenship instructor 2-12 intact, No motor deficit, No sensory deficit, Normal speech Eye Opening: Spontaneous Motor: Obeys Commands Verbal: Oriented GCS Score: 15 - Psych Psych: Normal affect, Other (mood is anxious) Results - Vitals Vitals: Vital Signs - 24 hr 02/17/19 07:59 Temperature 35.9 C L Heart Rate 79 Respiratory 20 Rate Blood Pressure 122/57 L O2 Saturation 100 Oxygen O2 Source Room air PD MEDICAL DECISION MAKING - ED course Complexity details: reviewed old records, reviewed results, re-evaluated patient, considered differential, d/w patient ED course: 53-year-old male with a history of recurrent prostatitis has symptoms again and today he has a very tender prostate on exam consistent with acute prostatitis. We will put him back on his doxycycline and have him follow-up again with the urologist. Departure - Departure Disposition: 01 Home, Self Care Clinical Impression: Prostatitis Qualifiers: Prostatitis type: acute Qualified Code(s): N41.0 - Acute prostatitis Condition: Stable Instructions: ED Prostatitis Follow-Up: Milan Osorio PA-C [Primary Care Provider] - Prescriptions: Doxycycline Hyclate 100 mg PO BID #28 capsule traMADol [Ultram] 50 - 100 mg PO Q6H PRN #20 tablet PRN Reason: Pain
[2019-02-17 08:48] LABS: BILIRUBIN,URINE NEGATIVE (NEGATIVE); GLUCOSE, URINE (UA) NEGATIVE (NEGATIVE); KETONES,URINE (UA) NEGATIVE (NEGATIVE); LEUKOCYTE ESTERASE, URINE NEGATIVE (NEGATIVE); NITRITE,URINE NEGATIVE (NEGATIVE); OCCULT BLOOD,URINE SMALL (NEGATIVE); PROTEIN,URINE NEGATIVE (NEGATIVE); UROBILINOGEN,URINE 0.2 (NORMAL) E.U./dL (NORMAL)
[2019-02-17 08:54] LABS: CLARITY,URINE CLEAR (CLEAR)
[2019-02-17 08:55] LABS: BACTERIA,URINE None Seen /HPF (None Seen); RBC,URINE 0-5 /HPF (0-5); SQUAMOUS EPITHELIAL CELL,UR NONE SEEN (<= Few)
== END 2019-02-17 09:09 | disposition home or self-care (01) ==
LOC: ED 07:51
DX: N41.0 Acute prostatitis (principal); K64.4 Residual hemorrhoidal skin tags
CPT/HCPCS: 81001; 81003; 87086; 99283; 99284

== ENCOUNTER 2019-08-23 09:22 | Emergency (ER) | payer MEDICAID ==
[2019-08-23 09:51] VITALS: BP 135/74
--- NOTE | 2019-08-23 10:29 | ED Physician Documentation ---
PD HPI MALE - Stated complaint Stated Complaint: MALE - Chief complaint Chief Complaint: General - History obtained from History obtained from: Patient - History of Present Illness Timing - onset: How many days ago (3) Timing - duration: Days (3) Timing - details: Gradual onset, Still present Associated symptoms: Dysuria. No: Urinary frequency, Discharge PD HPI MALE CONTRIB FACTORS: Sexually active, Exposed to STD Similar symptoms before: Diagnosis (urethritis and prostatitis) Recently seen: Not recently seen - Additional information Additional information: 54-year-old male who has had 4 recurrences of urethritis associated with prostatitis is concerned that he may have a problem with his and he feels that when he is sleeping downstairs he does not end up getting symptoms. He does state that when he takes antibiotic he gets better fairly quickly within a few days. He notes that he recently went back upstairs and now has symptoms again. He has been in see the urologist with the symptoms. Specimens obtained for GC and chlamydia have been negative. Review of Systems Constitutional: denies: Fever Eyes: denies: Decreased vision Ears: denies: Ear pain Nose: denies: Congestion Throat: denies: Sore throat Cardiac: denies: Chest pain / pressure Respiratory: denies: Dyspnea, Cough GI: denies: Abdominal Pain, Nausea, Vomiting : reports: Dysuria. denies: Frequency, Discharge Skin: denies: Rash, Lesions, Abrasion (s) PD PAST MEDICAL HISTORY - Past Medical History Respiratory: None Endocrine/Autoimmune: None GI: GERD, Hiatal hernia, Other : None HEENT: None Psych: None Musculoskeletal: None, Chronic back pain Derm: None - Past Surgical History Past Surgical History: Yes General: Cholecystectomy, Other Derm: Skin grafts - Present Medications Home Medications: Ambulatory Orders Medication Instructions Recorded Confirmed Omeprazole 20 mg PO DAILY #30 tab 08/18/18 Doxycycline Hyclate 100 mg PO BID #14 capsule 10/20/18 Naproxen 375 mg PO BID #14 tablet 10/20/18 Doxycycline Hyclate 100 mg PO BID #28 capsule 11/09/18 Naproxen 375 mg PO BID PRN #20 tablet 11/09/18 Oxycodone HCl/Acetaminophen 1 - 2 each PO Q6H PRN #10 tablet 11/21/18 [Percocet 5-325 mg Tablet] Doxycycline Hyclate 100 mg PO BID #28 capsule 12/06/18 Doxycycline Hyclate 100 mg PO BID #20 capsule 01/03/19 Phenazopyridine HCl [Pyridium] 200 mg PO TID PRN #6 tablet 01/03/19 Doxycycline Hyclate 100 mg PO BID #28 capsule 02/17/19 traMADol [Ultram] 50 - 100 mg PO Q6H PRN #20 tablet 02/17/19 Doxycycline Hyclate 100 mg PO BID #20 capsule 08/23/19 traMADol [Ultram] 50 - 100 mg PO Q6H PRN #20 tablet 08/23/19 - Allergies Allergies/Adverse Reactions: Allergies Allergy/AdvReac Type Severity Reaction Status Date / Time ondansetron Allergy Severe Respiratory Verified 08/23/19 09:48 acetaminophen [From Vicodin] Allergy Nausea Verified 08/23/19 09:48 hydrocodone bitartrate * Allergy Nausea Verified 08/23/19 09:48 [From Vicodin] hydromorphone [From Dilaudid] Allergy Hives Verified 08/23/19 09:48 - Social History Does the pt smoke?: No Smoking Status: Never smoker Does the pt drink ETOH?: No Does the pt have substance abuse?: No - Immunizations Immunizations are current?: Yes - POLST Patient has POLST: No POLST Status: Full Code PD ED PE NORMAL - Vitals Vital signs reviewed: Yes (Hypertensive mild) - General General: No acute distress, Well developed/nourished - HEENT HEENT: Atraumatic, PERRL, EOMI - Neck Neck: Supple, no meningeal sign - Respiratory Respiratory: No respiratory distress - Back Back: No CVA TTP, No spinal TTP - Derm Derm: Normal color, Warm and dry, No rash - Extremities Extremities: No deformity, No edema - Neuro Neuro: No motor deficit, No sensory deficit, Normal speech Eye Opening: Spontaneous Motor: Obeys Commands Verbal: Oriented GCS Score: 15 - Psych Psych: Normal mood, Normal affect Results - Vitals Vitals: Vital Signs - 24 hr 08/23/19 09:48 Temperature 37 C Heart Rate 69 Respiratory 15 Rate Blood Pressure 135/74 H O2 Saturation 100 Oxygen O2 Source Room air PD MEDICAL DECISION MAKING - ED course Complexity details: reviewed old records, considered differential, d/w patient ED course: 54-year-old male with recurrent urethritis has had successful treatment previously with doxycycline. We will place him back on doxycycline and asked him to follow-up again with the urologist. Departure - Departure Disposition: 01 Home, Self Care Clinical Impression: Urethritis Condition: Stable Instructions: ED Urethritis Infec Vs Inflam Male Follow-Up: Milan Osorio PA-C [Primary Care Provider] - Tamera Nogueira MD [Provider Admit Priv/Credential] - Prescriptions: Doxycycline Hyclate 100 mg PO BID #20 capsule traMADol [Ultram] 50 - 100 mg PO Q6H PRN #20 tablet PRN Reason: Pain
[2019-08-23 21:06] LABS: TRICHOMONAS VAGINALIS DNA NEGATIVE (NEGATIVE)
== END 2019-08-23 10:39 | disposition home or self-care (01) ==
LOC: ED 09:22
DX: N34.2 Other urethritis (principal)
CPT/HCPCS: 87491; 87591; 87661; 99283

== ENCOUNTER 2020-02-29 10:24 | Emergency (ER) | payer MEDICAID ==
[2020-02-29] MEDS ORDERED: DOXYCYCLINE 100 MG TABLET PO STA ×2 (10:45→12:23)
--- NOTE | 2020-02-29 10:47 | ED Physician Documentation ---
History of Present Illness - Stated complaint Stated Complaint: REFILL/LT HAND PX - Chief complaint Chief Complaint: General - History obtained from History obtained from: Patient - Additonal information Additional information: Patient comes emergency department complaining of dysuria for the last few days and also, of swelling of his left pinky finger around the nail. Patient states that his swelling has been going on for about a week and a half. He states he uses a nail care kit and accidentally pushed his cuticles back too far on a couple of his fingers. He states that he has not had any redness of the finger and has not had progressive swelling or pain. No fevers. No injury to the finger. Patient also has noticed dysuria for the last few days is here for this as well. No abdominal pain. No nausea vomiting. No back pain. No penile discharge. No rash or other lesions in the genital area. Patient has been for 24 years and has been sexually active only with his . No other complaints at this time. Review of Systems Ten Systems: 10 systems reviewed and negative Constitutional: reports: Reviewed and negative Eyes: reports: Reviewed and negative Ears: reports: Reviewed and negative Nose: reports: Reviewed and negative Throat: reports: Reviewed and negative Cardiac: reports: Reviewed and negative Respiratory: reports: Reviewed and negative GI: reports: Reviewed and negative : reports: Dysuria, Frequency, Hesitancy Skin: reports: Reviewed and negative Musculoskeletal: reports: Reviewed and negative Neurologic: reports: Reviewed and negative Psychiatric: reports: Reviewed and negative Endocrine: reports: Reviewed and negative Immunocompromised: reports: Reviewed and negative PD PAST MEDICAL HISTORY - Past Medical History Respiratory: None Endocrine/Autoimmune: None GI: GERD, Hiatal hernia, Other : None HEENT: None Psych: None Musculoskeletal: None, Chronic back pain Derm: None - Past Surgical History Past Surgical History: Yes General: Cholecystectomy, Other Derm: Skin grafts - Present Medications Home Medications: Ambulatory Orders Medication Instructions Recorded Confirmed Omeprazole 20 mg PO DAILY #30 tab 08/18/18 Doxycycline Hyclate 100 mg PO BID #14 capsule 10/20/18 Naproxen 375 mg PO BID #14 tablet 10/20/18 Doxycycline Hyclate 100 mg PO BID #28 capsule 11/09/18 Naproxen 375 mg PO BID PRN #20 tablet 11/09/18 Oxycodone HCl/Acetaminophen 1 - 2 each PO Q6H PRN #10 tablet 11/21/18 [Percocet 5-325 mg Tablet] Doxycycline Hyclate 100 mg PO BID #28 capsule 12/06/18 Doxycycline Hyclate 100 mg PO BID #20 capsule 01/03/19 Phenazopyridine HCl [Pyridium] 200 mg PO TID PRN #6 tablet 01/03/19 Doxycycline Hyclate 100 mg PO BID #28 capsule 02/17/19 traMADol [Ultram] 50 - 100 mg PO Q6H PRN #20 tablet 02/17/19 Doxycycline Hyclate 100 mg PO BID #20 capsule 08/23/19 traMADol [Ultram] 50 - 100 mg PO Q6H PRN #20 tablet 08/23/19 Doxycycline Hyclate 100 mg PO BID #20 capsule 02/29/20 Phenazopyridine HCl [Pyridium] 200 mg PO TID PRN #6 tablet 02/29/20 - Allergies Allergies/Adverse Reactions: Allergies Allergy/AdvReac Type Severity Reaction Status Date / Time ondansetron Allergy Severe Respiratory Verified 02/29/20 10:40 acetaminophen [From Vicodin] Allergy Nausea Verified 02/29/20 10:40 hydrocodone bitartrate * Allergy Nausea Verified 02/29/20 10:40 [From Vicodin] hydromorphone [From Dilaudid] Allergy Hives Verified 02/29/20 10:40 - Social History Does the pt smoke?: No Smoking Status: Never smoker Does the pt drink ETOH?: No Does the pt have substance abuse?: No - Immunizations Immunizations are current?: Yes - POLST Patient has POLST: No POLST Status: Full Code PD ED PE NORMAL - Vitals Vital signs reviewed: Yes - General General: Alert and oriented X 3, No acute distress - HEENT HEENT: Atraumatic, PERRL, EOMI, Moist mucous membranes - Neck Neck: Supple, no meningeal sign - Cardiac Cardiac: Strong equal pulses - Respiratory Respiratory: No respiratory distress - Back Back: Other (No gross limitation of range of motion.) - Derm Derm: Normal color, Warm and dry, No rash, Other (Paronychial edemaThe left small finger. No drainage. tenderness no subungual pus or hematoma. No streaking or swelling of the proximal finger or hand. No flexor surface tenderness or swelling.) - Extremities Extremities: No deformity, No edema - Neuro Neuro: Alert and oriented X 3 - Psych Psych: Normal mood, Normal affect Results - Vitals Vitals: Vital Signs - 24 hr 02/29/20 02/29/20 10:34 12:33 Temperature 37.1 C 36.7 C Heart Rate 108 H 105 H Respiratory 20 18 Rate Blood Pressure 119/99 H 127/87 H O2 Saturation 99 98 Oxygen O2 Source Room air - Labs Labs: Laboratory Tests 02/29/20 11:00 Urine Color LT. YELLOW Urine Clarity CLEAR Urine pH 5.5 Ur Specific Arvilla >=1.030 H Urine Protein NEGATIVE Urine Glucose (UA) NEGATIVE Urine Ketones NEGATIVE Urine Occult Blood TRACE-INTA Urine Nitrite NEGATIVE Urine Bilirubin NEGATIVE Urine Urobilinogen 0.2 (NORMAL) Ur Leukocyte Esterase NEGATIVE Ur Microscopic Review NOT INDICATED Urine Culture Comments NOT INDICATED PD MEDICAL DECISION MAKING - ED course Complexity details: reviewed results, re-evaluated patient, considered differential, d/w patient ED course: Patient was worked up with urinalysis and urine aptima. Urinalysis was negative, and the abdomen is pending at this time. Patient has been started on antibiotics for his finger infection, and will be notified at home should his STD testing come back positive. We have discussed of the usual indications for return Departure - Departure Disposition: 01 Home, Self Care Clinical Impression: Dysuria Condition: Stable Instructions: ED Dysuria Uncertain Cause Prescriptions: Doxycycline Hyclate 100 mg PO BID #20 capsule Phenazopyridine HCl [Pyridium] 200 mg PO TID PRN #6 tablet PRN Reason: dysuria Comments: Your urinalysis looks good, and shows no evidence of infection at this time. The test for sexually transmitted diseases is pending, and will be back within the next 24 to 48 hours. For now, we will put you on a medication for the burning, that this can turn your urine orange. Please drink plenty of fluids. The doxycycline will work for the infection of your cuticle, and prescription has been transmitted electronically to [facility] pharmacy in [place]. You may hot pack your finger and take the antibiotics as directed. Discharge Date/Time: 02/29/20 12:33
[2020-02-29 11:06] LABS: BILIRUBIN,URINE NEGATIVE (NEGATIVE); GLUCOSE, URINE (UA) NEGATIVE (NEGATIVE); KETONES,URINE (UA) NEGATIVE (NEGATIVE); LEUKOCYTE ESTERASE, URINE NEGATIVE (NEGATIVE); NITRITE,URINE NEGATIVE (NEGATIVE); OCCULT BLOOD,URINE TRACE-INTA (NEGATIVE); PH,URINE 5.5 PH (5.0-7.5); PROTEIN,URINE NEGATIVE (NEGATIVE); UROBILINOGEN,URINE 0.2 (NORMAL) E.U./dL (NORMAL)
[2020-02-29 11:12] LABS: CLARITY,URINE CLEAR (CLEAR)
[2020-02-29] MEDS ORDERED: PHENAZOPYRIDINE 100 MG TABLET PO STA (12:05)
[2020-02-29 12:35] VITALS: BP 127/87
== END 2020-02-29 12:33 | disposition home or self-care (01) ==
LOC: ED 10:24
DX: L03.012 Cellulitis of left finger (principal); R30.0 Dysuria; R35.0 Frequency of micturition; R39.11 Hesitancy of micturition
CPT/HCPCS: 81003; 87491; 87591; 99283; 99284; A9270; 81001; 87086; 87661

== ENCOUNTER 2020-03-04 08:00 | Outpatient (CLI) | payer MEDICAID ==
[2020-03-04 18:21] LABS: BASOPHILS % (AUTO) 0.7 %; EOSINOPHILS # (AUTO) 0.1 10^3/uL (0.0-0.7); EOSINOPHILS % (AUTO) 1.2 %; HGB - HEMOGLOBIN 12.1 g/dL (14.0-18.0); LYMPHOCYTES # (AUTO) 2.2 10^3/uL (1.5-3.5); LYMPHOCYTES % (AUTO) 53.1 %; MEAN CORPUSCULAR HEMOGLOBIN 24.5 pg (27.0-31.0); MEAN CORPUSCULAR HGB CONC 32.1 g/dL (32.0-36.0); MEAN CORPUSCULAR VOLUME 76.3 fL (80.0-94.0); MEAN PLATELET VOLUME 10.8 fL (7.4-11.4); MONOCYTES # (AUTO) 0.2 10^3/uL (0.0-1.0); MONOCYTES % (AUTO) 5.6 %; NEUTROPHILS # (AUTO) 1.6 10^3/uL (1.5-6.6); NEUTROPHILS % (AUTO) 39.2 %; PLT - PLATELET COUNT 216 10^3/uL (130-450); RED BLOOD COUNT 4.94 10^6/uL (4.70-6.10); RED CELL DISTRIBUTION WIDTH 14.6 % (12.0-15.0); WHITE BLOOD COUNT 4.1 x10^3/uL (4.8-10.8)
[2020-03-04 18:53] LABS: % IRON SATURATION 28 % (20-50); ALBUMIN 4.5 g/dL (3.2-5.5); ALBUMIN/GLOBULIN RATIO 1.6 (1.0-2.2); ALKALINE PHOSPHATASE 30 IU/L (42-121); ALT ALANINE AMINOTRANSFERASE 20 IU/L (10-60); AST ASPARTATE AMINOTRANSFERASE 24 IU/L (10-42); BILIRUBIN,TOTAL 0.6 mg/dL (0.2-1.0); BUN - BLOOD UREA NITROGEN 12 mg/dL (6-20); CALCIUM 9.4 mg/dL (8.5-10.3); CARBON DIOXIDE - CO2 28 mmol/L (21-32); CHLORIDE 105 mmol/L (101-111); CHOL/HDL RATIO 2.9 (<5.0); CHOLESTEROL 156 mg/dL; CREATININE 1.1 mg/dL (0.6-1.2); GLUCOSE 89 mg/dL (70-100); HDL CHOLESTEROL 53 mg/dL; IRON 79 ug/dL (45-182); LDL CHOLESTEROL,CALCULATED 91 mg/dL; LDL/HDL RATIO 1.7 (<3.6); LIPASE 44 U/L (22-51); SODIUM 139 mmol/L (135-145); TOTAL IRON BINDING CAPACITY 277 ug/dL (250-450); TOTAL PROTEIN 7.3 g/dL (6.7-8.2); TRANSFERRIN 198 mg/dL (180-329); VLDL CHOLESTEROL 12 mg/dL
[2020-03-04 19:05] LABS: FERRITIN 99.8 ng/mL (23.9-336.2)
== END 2020-03-04 23:59 | disposition home or self-care (01) ==
LOC: LAB.WCP 08:00
PROVIDERS: ATTEND Family Medicine
DX: Z00.00 Encounter for general adult medical examination without abnormal findings (principal); D64.9 Anemia, unspecified; D57.3 Sickle-cell trait; K86.81 Exocrine pancreatic insufficiency; K86.1 Other chronic pancreatitis; Z12.5 Encounter for screening for malignant neoplasm of prostate
CPT/HCPCS: 36415; 80053; 80061; 81599; 82607; 82728; 83021; 83540; 83690; 83721; 84153; 84466; 85014; 85018; 85025; 85041

== ENCOUNTER 2020-07-13 08:00 | Outpatient (CLI) | payer MEDICAID ==
[2020-07-13 18:57] LABS: ALBUMIN 4.5 g/dL (3.2-5.5); ALBUMIN/GLOBULIN RATIO 1.4 (1.0-2.2); BILIRUBIN,TOTAL 0.5 mg/dL (0.2-1.0); CALCIUM 9.5 mg/dL (8.5-10.3); CREATININE 1.6 mg/dL (0.6-1.2); TOTAL PROTEIN 7.7 g/dL (6.7-8.2)
== END 2020-07-13 08:01 | disposition home or self-care (01) ==
LOC: LAB.WCP 08:00
PROVIDERS: ATTEND Family Medicine
DX: B35.1 Tinea unguium (principal)
CPT/HCPCS: 36415; 80053

== ENCOUNTER 2020-07-14 12:59 | Emergency (ER) | payer MEDICAID ==
--- OUTSIDE RECORDS SUMMARY | 2020-07-14 13:36 | EXTERNAL MEDICAL SUMMARY RPT | Continuity of Care Document ---
:1965 Demographics Phone Unavailable Preferred Language Kinyarwanda Marital Status Unknown Jainism Affiliation Unknown Race Unknown Ethnic Group Unknown Author Organization [place] Address [address] [place] [address] Phone Care Team Providers Name Role Phone DODorcas, Unavailable Unavailable Problems date description facility 2020-04-27 00:00:00 Other specified diseases of nail [facility] 2020-04-27 00:00:00 Nail dystrophy [facility] 2020-04-27 00:00:00 Health-related behavior [facility] 2020-04-27 00:00:00 Exercise [facility] 2020-04-27 00:00:00 Never smoker [facility] 2020-04-27 00:00:00 Alcohol use [facility] 2020-04-27 00:00:00 Tobacco smoking status [facility] 2020-04-27 00:00:00 Total score? [facility] 2020-04-27 00:00:00 Dystrophia unguium [facility] 2020-05-19 00:00:00 Ingrowing nail [facility] 2020-05-19 00:00:00 Health-related behavior [facility] 2020-05-19 00:00:00 Exercise [facility] 2020-05-19 00:00:00 Never smoker [facility] 2020-05-19 00:00:00 Alcohol use [facility] 2020-05-19 00:00:00 Tobacco smoking status NHIS [facility] 2020-05-24 00:00:[facility] 2020[facility] 2020-05-24 00:00:[facility] 2020-05-24 00:00:00 [facility] 2020-05-24 00:00:00 Tobacco smoking status [facility] 2020-06-03 00:00:00 [facility] 2020-06-03 [facility] 2020-06-03 00:00:00 [facility] 2020-06-03 00:00:00 [facility] 2020-06-03 00:00:00 Tobacco smoking status [facility] 2020-06-03 00:00:00 Total score? [facility] 2020-06-09 00:00:00 Dermatophytosis of nail [facility] 2020-06-09 00:00:00 COMPREHENSIVE METABOLIC PANEL [facility] 2020-06-09 00:00:00 Tinea unguium [facility] 2020-06-09 00:00:00 Health-related behavior [facility] 2020-06-09 00:00:[facility] 2020-06-09 00:00:00 Never smoker [facility] 2020-06-09 00:00:00 Onychomycosis [facility] [place] [facility] 2020-06-09 00:00:00 Alcohol use [facility] 2020-06-09 00:00:00 Tobacco smoking status [facility] 2020-07-13 00:00 TINEA UNGUIUM [facility] Allergies date description facility NO KNOWN ALLERGIES [facility] Medications date description facility 2020-06-09 00:00:00 null [facility] 2020-06-09 00:00:00 null [facility] 2020-06-09 00:00:00 TERBINAFINE HCL [facility] 2020-06-09 00:00:00 TERBINAFINE HCL [facility] 2020-07-13 00:00:00 null [facility] 2020-07-13 00:00:00 null [facility] 2020-07-13 00:00:00 SULFAMETHOXAZOLE-TRIMETHOPRIM [facility] 2020-07-13 00:00:00 SULFAMETHOXAZOLE-TRIMETHOPRIM [facility] Procedures date description facility 2020-05-24 00:00:00 Excision, Nail Wedge of Nail [facility]rown [facility]en[facility] date description facility 2020-05-24 00:00:00 [facility] date description facility 2020-06-09 00:00:00 COMPREHENSIVE METABOLIC PANEL [facility] date description facility 2020-06-09 00:00:00 [facility] Results Social History date description facility 2020-04-27 00:00:00 [facility] smoker [facility] date description facility 2020-05-19 00:00:00 [facility] date description facility 2020-05-24 00:00:00 [facility] date description facility 2020-06-03 00:00:00 [facility] date description facility 2020-06-09 00:00:00 Never smoker [facility] Social History date description facility 2020-04-27 00:00:00 Never smoker [facility] date description facility 2020-05-19 00:00:00 Never smoker [facility] date description facility 2020-05-24 00:00:00 Never smoker [facility] date description facility 2020-06-03 00:00:00 Never smoker [facility] date description facility 2020-06-09 00:00:00 Never smoker [facility] date description facility [id number]
[2020-07-14 14:03] LABS: BASOPHILS % (AUTO) 0.4 %; EOSINOPHILS % (AUTO) 0.4 %; HGB - HEMOGLOBIN 14.1 g/dL (14.0-18.0); LYMPHOCYTES % (AUTO) 38.2 %; MEAN CORPUSCULAR HEMOGLOBIN 24.2 pg (27.0-31.0); MEAN CORPUSCULAR HGB CONC 31.5 g/dL (32.0-36.0); MEAN CORPUSCULAR VOLUME 76.8 fL (80.0-94.0); MEAN PLATELET VOLUME 10.1 fL (7.4-11.4); MONOCYTES # (AUTO) 0.4 10^3/uL (0.0-1.0); MONOCYTES % (AUTO) 8.2 %; NEUTROPHILS # (AUTO) 2.8 10^3/uL (1.5-6.6); NEUTROPHILS % (AUTO) 52.6 %; PLT - PLATELET COUNT 243 10^3/uL (130-450); RED BLOOD COUNT 5.83 10^6/uL (4.70-6.10); RED CELL DISTRIBUTION WIDTH 14.2 % (12.0-15.0); WHITE BLOOD COUNT 5.2 x10^3/uL (4.8-10.8)
[2020-07-14 14:17] LABS: ALBUMIN 5.4 g/dL (3.2-5.5); ALBUMIN/GLOBULIN RATIO 1.6 (1.0-2.2); CREATININE 1.4 mg/dL (0.6-1.2); TOTAL PROTEIN 8.7 g/dL (6.7-8.2)
--- NOTE | 2020-07-14 14:19 | XRAY Report ---
PROCEDURE: Chest 1 View X-Ray INDICATIONS: Chest Pain TECHNIQUE: One view of the chest was acquired. COMPARISON: 07/12/2018 FINDINGS: Surgical changes and devices: None. Lungs and pleura: No pleural effusions or pneumothorax. Lungs are clear. Mediastinum: Mediastinal contours appear normal. Heart size is normal. Bones and chest wall: No suspicious bony lesions. Overlying soft tissues appear unremarkable. IMPRESSION: Chest without acute cardiopulmonary abnormalities Reviewed by: Martinez Chappell MD on 07/14/2020 1:18 PM [facility] Approved by: Martinez Chappell MD on 07/14/2020 1:18 PM [facility] Station ID: [id number]
[2020-07-14] MEDS ORDERED: LIDOCAINE VISCOUS 2% 15 ML UDC MM STA (15:20)
--- NOTE | 2020-07-14 15:22 | ED Physician Documentation ---
History of Present Illness - Stated complaint Stated Complaint: CHEST PX - Chief complaint Chief Complaint: Cardiac - History obtained from History obtained from: Patient - Additonal information Additional information: 55-year-old male presents to the emergency department for evaluation of midsternal chest pain. Has been present for 2 days. He reports a burning sensation and sour taste in his mouth. He does have a history of acid reflux and stopped taking his PPI about 2 months ago. In addition to that he has been drinking lots of lemon teas. He denies that the chest pain is exertional or causing shortness of breath. There is no orthopnea. He was admitted to this hospital in March 2018 for midsternal chest pain. His risk factors for coronary artery disease are simply being male gender. He did have negative cardiac enzymes at that time as well as a negative myocardial perfusion test and treadmill that was described as normal. Patient denies abdominal pain, nausea vomiting diaphoresis night sweats, cough congestion or fevers. Review of Systems Constitutional: reports: Reviewed and negative Eyes: reports: Reviewed and negative Ears: reports: Reviewed and negative Nose: reports: Reviewed and negative Throat: reports: Dental pain / toothache Cardiac: reports: Reviewed and negative Respiratory: reports: Reviewed and negative GI: reports: Reviewed and negative : reports: Reviewed and negative PD PAST MEDICAL HISTORY - Past Medical History Respiratory: None Endocrine/Autoimmune: None GI: GERD, Hiatal hernia, Other : None HEENT: None Psych: None Musculoskeletal: None, Chronic back pain Derm: None - Past Surgical History Past Surgical History: Yes General: Cholecystectomy, Other Derm: Skin grafts - Present Medications Home Medications: Ambulatory Orders Medication Instructions Recorded Confirmed Omeprazole 20 mg PO DAILY #30 tab 08/18/18 Doxycycline Hyclate 100 mg PO BID #14 capsule 10/20/18 Naproxen 375 mg PO BID #14 tablet 10/20/18 Doxycycline Hyclate 100 mg PO BID #28 capsule 11/09/18 Naproxen 375 mg PO BID PRN #20 tablet 11/09/18 Oxycodone HCl/Acetaminophen 1 - 2 each PO Q6H PRN #10 tablet 11/21/18 [Percocet 5-325 mg Tablet] Doxycycline Hyclate 100 mg PO BID #28 capsule 12/06/18 Doxycycline Hyclate 100 mg PO BID #20 capsule 01/03/19 Phenazopyridine HCl [Pyridium] 200 mg PO TID PRN #6 tablet 01/03/19 Doxycycline Hyclate 100 mg PO BID #28 capsule 02/17/19 traMADol [Ultram] 50 - 100 mg PO Q6H PRN #20 tablet 02/17/19 Doxycycline Hyclate 100 mg PO BID #20 capsule 08/23/19 traMADol [Ultram] 50 - 100 mg PO Q6H PRN #20 tablet 08/23/19 Doxycycline Hyclate 100 mg PO BID #20 capsule 02/29/20 Phenazopyridine HCl [Pyridium] 200 mg PO TID PRN #6 tablet 02/29/20 - Allergies Allergies/Adverse Reactions: Allergies Allergy/AdvReac Type Severity Reaction Status Date / Time ondansetron Allergy Severe Respiratory Verified 07/14/20 13:09 acetaminophen [From Vicodin] Allergy Nausea Verified 07/14/20 13:09 hydrocodone bitartrate * Allergy Nausea Verified 07/14/20 13:09 [From Vicodin] hydromorphone [From Dilaudid] Allergy Hives Verified 07/14/20 13:09 - Social History Does the pt smoke?: No Smoking Status: Never smoker Does the pt drink ETOH?: No Does the pt have substance abuse?: No - Immunizations Immunizations are current?: Yes - POLST Patient has POLST: No POLST Status: Full Code PD ED PE NORMAL - General General: Alert and oriented X 3, No acute distress - HEENT HEENT: PERRL - Neck Neck: Supple, no meningeal sign - Cardiac Cardiac: RRR, No murmur - Respiratory Respiratory: Clear bilaterally - Abdomen Abdomen: Normal bowel sounds, Soft, Non tender, Non distended - Back Back: No CVA TTP - Derm Derm: Warm and dry - Extremities Extremities: No deformity - Neuro Neuro: Alert and oriented X 3 Eye Opening: Spontaneous Motor: Obeys Commands Verbal: Oriented GCS Score: 15 Results - Vitals Vitals: Vital Signs - 24 hr 07/14/20 13:06 Temperature 36.7 C Heart Rate 86 Respiratory 12 Rate Blood Pressure 149/77 H O2 Saturation 98 Oxygen O2 Source Room air - EKG (time done) 1308 Rate: Rate (enter#) (74) Rhythm: NSR [place]: Normal Intervals: Normal [place] QRS: Normal Ischemia: ST elevation c/w repol Compare to prior EKG: Unchanged from prior EKG Computer interpretation: Agree with computer - Labs Labs: Laboratory Tests 07/14/20 07/14/20 07/14/20 13:59 13:59 13:59 WBC 5.2 RBC 5.83 Hgb 14.1 Hct 44.8 MCV 76.8 L MCH 24.2 L MCHC 31.5 L RDW 14.2 Plt Count 243 MPV 10.1 Neut # (Auto) 2.8 Lymph # (Auto) 2.0 Centre # (Auto) 0.4 Eos # (Auto) 0.0 Baso # (Auto) 0.0 Absolute Nucleated RBC 0.00 Nucleated RBC % 0.0 Sodium 139 Potassium 3.7 Chloride 102 Carbon Dioxide 26 Anion Gap 11.0 BUN 17 Creatinine 1.4 H Estimated GFR (MDRD) 64 L Glucose 114 H Calcium 10.0 Total Bilirubin 1.0 AST 28 ALT 22 Alkaline Phosphatase 40 L Troponin I High Sens < 2.3 L Total Protein 8.7 H Albumin 5.4 Globulin 3.3 Albumin/Globulin Ratio 1.6 Lipase 103 H - Rads (name of study) CXR Radiology: Final report received (No acute cardiopulmonary abnormalities) PD MEDICAL DECISION MAKING - ED course Complexity details: reviewed old records, reviewed results, re-evaluated patient, considered differential, d/w patient ED course: 55-year-old male presents to the emergency department for evaluation of substernal chest pain and a burning sensation in his mouth. This follows drinking excessive amount of lemon tea as well as stopping his PPI. He was seen in this ER 2 years ago for similar presentation was admitted to the hospital for work-up. He had an unremarkable echocardiogram and a stress test. His only risk factors for coronary artery disease are simply being a male over the age of 50. His EKG today is nonischemic and unchanged from 2 years ago. High- sensitivity troponin is negative. Chest x-ray without acute focal abnormality. This gentleman was given lidocaine here in the emergency department with full resolution of his symptoms. My suspicion for ACS is very low. His heart score is 1 making him low risk for Mace. I have advised this gentleman to resume taking his PPI. I will recommend as needed Maalox. He is advised to follow closely with his primary care provider. Departure - Departure Disposition: Home, Self Care Clinical Impression: Chest pain Qualifiers: Chest pain type: unspecified Qualified Code(s): R07.9 - Chest pain, unspecified GERD (gastroesophageal reflux disease) Qualifiers: Esophagitis presence: without esophagitis Qualified Code(s): K21.9 - Gastro- esophageal reflux disease without esophagitis Condition: Stable Record reviewed to determine appropriate education?: Yes Comments: Patrick you were seen today in the emergency department for evaluation of chest pain. As we discussed your labs are all essentially normal. Your chest x-ray and EKG are also unchanged from your last visit. I suspect that the cause of your chest pain is acid reflux since she stopped taking your acid medicine. Please resume taking this. I also recommend that you stop drinking the lemon teas. The lemon is very sour and may cause worsening gastritis. I would like you to use Maalox [id number] as needed until you fill the acid reflux medication. If at any point you develop fevers, have chest pressure, chest pain with exertion or fainting episodes please return immediately to the ER Please discuss this ED visit with your primary care provider
[2020-07-14 16:10] VITALS: BP 124/80
== END 2020-07-14 16:14 | disposition home or self-care (01) ==
LOC: ED 12:59
DX: K21.9 Gastro-esophageal reflux disease without esophagitis (principal)
CPT/HCPCS: 36415; 80053; 83690; 84484; 85025; 93005; 99284

== ENCOUNTER 2020-11-22 16:07 | Emergency (ER) | payer MEDICAID ==
--- NOTE | 2020-11-22 16:28 | ED Physician Documentation ---
PD HPI CHEST PAIN - Stated complaint Stated Complaint: CHEST PX - Chief complaint Chief Complaint: Cardiac - History obtained from History obtained from: Patient - Additional information Additional information: 55-year-old gentleman is under a lot of stress. His son just moved back in the house and they are not getting along well. He has been home for about 4 days and ever since then has had waxing waning chest and neck pain. There is no shortness of breath, pedal edema, or calf pain. No history of heart or lung problems. He is not a smoker. Review of Systems Constitutional: denies: Fever, Chills Eyes: reports: Reviewed and negative Ears: reports: Reviewed and negative Nose: reports: Reviewed and negative Cardiac: reports: Chest pain / pressure. denies: Palpitations, Pedal edema, Calf pain PD PAST MEDICAL HISTORY - Past Medical History Respiratory: None Endocrine/Autoimmune: None GI: GERD, Hiatal hernia, Other : None HEENT: None Psych: None Musculoskeletal: None, Chronic back pain Derm: None - Past Surgical History Past Surgical History: Yes General: Cholecystectomy, Other Derm: Skin grafts - Present Medications Home Medications: Ambulatory Orders Medication Instructions Recorded Confirmed Omeprazole 20 mg PO DAILY #30 tab. 08/18/18 Doxycycline Hyclate 100 mg PO BID #14 capsule 10/20/18 Naproxen 375 mg PO BID #14 tablet 10/20/18 Doxycycline Hyclate 100 mg PO BID #28 capsule 11/09/18 Naproxen 375 mg PO BID PRN #20 tablet 11/09/18 Oxycodone HCl/Acetaminophen 1 - 2 each PO Q6H PRN #10 tablet 11/21/18 [Percocet 5-325 mg Tablet] Doxycycline Hyclate 100 mg PO BID #28 capsule 12/06/18 Doxycycline Hyclate 100 mg PO BID #20 capsule 01/03/19 Phenazopyridine HCl [Pyridium] 200 mg PO TID PRN #6 tablet 01/03/19 Doxycycline Hyclate 100 mg PO BID #28 capsule 02/17/19 traMADol [Ultram] 50 - 100 mg PO Q6H PRN #20 tablet 02/17/19 Doxycycline Hyclate 100 mg PO BID #20 capsule 08/23/19 traMADol [Ultram] 50 - 100 mg PO Q6H PRN #20 tablet 02/22/20 Doxycycline Hyclate 100 mg PO BID #20 capsule 02/29/20 Phenazopyridine HCl [Pyridium] 200 mg PO TID PRN #6 tablet 02/29/20 - Allergies Allergies/Adverse Reactions: Allergies Allergy/AdvReac Type Severity Reaction Status Date / Time ondansetron Allergy Severe Respiratory Verified 11/22/20 16:18 acetaminophen [From Vicodin] Allergy Nausea Verified 11/22/20 16:18 hydrocodone bitartrate * Allergy Nausea Verified 11/22/20 16:18 [From Vicodin] hydromorphone [From Dilaudid] Allergy Hives Verified 11/22/20 16:18 - Social History Does the pt smoke?: No Smoking Status: Never smoker Does the pt drink ETOH?: No Does the pt have substance abuse?: No - Immunizations Immunizations are current?: Yes - POLST Patient has POLST: No POLST Status: Full Code PD ED PE NORMAL - Vitals Vital signs reviewed: Yes - General General: Alert and oriented X 3, No acute distress - HEENT HEENT: PERRL, EOMI - Neck Neck: Supple, no meningeal sign, No bony TTP - Cardiac Cardiac: RRR, No murmur - Respiratory Respiratory: No respiratory distress, Clear bilaterally - Abdomen Abdomen: Non tender - Back Back: No CVA TTP, No spinal TTP - Derm Derm: Normal color, Warm and dry - Extremities Extremities: No edema, No calf tenderness / cord - Neuro Neuro: Alert and oriented X 3, Normal speech Results - Vitals Vitals: Vital Signs - 24 hr 11/22/20 16:12 Temperature 36.4 C L Heart Rate 73 Respiratory 9 L Rate Blood Pressure 141/77 H O2 Saturation 100 Oxygen O2 Source Room air - EKG (time done) 1612 Rate: Rate (enter#) (70) Rhythm: NSR [place]: Normal Intervals: Normal CT QRS: Normal Ischemia: ST elevation c/w repol. No: ST elevation c/w ischemia, ST depression Computer interpretation: Agree with computer - Labs Labs: Laboratory Tests 11/22/20 11/22/20 11/22/20 16:57 16:57 16:57 WBC 4.1 L RBC 4.89 Hgb 11.6 L Hct 37.2 L MCV 76.1 L MCH 23.7 L MCHC 31.2 L RDW 14.3 Plt Count 253 MPV 9.7 Neut # (Auto) 1.9 Lymph # (Auto) 1.8 [place] # (Auto) 0.4 Eos # (Auto) 0.0 Baso # (Auto) 0.0 Absolute Nucleated RBC 0.00 Nucleated RBC % 0.0 Sodium 135 Potassium 3.8 Chloride 102 Carbon Dioxide 26 Anion Gap 7.0 BUN 14 Creatinine 1.0 Estimated GFR (MDRD) 94 Glucose 107 H Calcium 9.3 Total Bilirubin 0.4 AST 22 ALT 20 Alkaline Phosphatase 30 L Troponin I High Sens 2.9 Total Protein 7.6 Albumin 4.6 Globulin 3.0 Albumin/Globulin Ratio 1.5 Lipase 50 - Rads (name of study) 1v cxr Radiology: EMP read contemporaneously (normal) PD MEDICAL DECISION MAKING - ED course ED course: Heart score 1 Perc 0 Departure - Departure Disposition: 01 Home, Self Care Clinical Impression: Chest pain Condition: Good Record reviewed to determine appropriate education?: Yes Instructions: ED Chest Pain NonCardiac Comments: Mild chronic anemia, otherwise all your results look fine with normal chest x- ray and labs regarding your heart. Return for new or worsening symptoms. Follow-up with your primary care physician, next available appointment.
--- NOTE | 2020-11-22 16:41 | XRAY Report ---
PROCEDURE: Chest 1 View X-Ray INDICATIONS: Chest Pain TECHNIQUE: One view of the chest was acquired. COMPARISON: CXR 07/14/2020, 03/15/2018. FINDINGS: Surgical changes and devices: None. Lungs and pleura: No pleural effusions or pneumothorax. Lungs are clear. Mediastinum: Mediastinal contours appear normal. Heart size is normal. Bones and chest wall: No suspicious bony lesions. Overlying soft tissues appear unremarkable. IMPRESSION: No acute cardiopulmonary abnormality. Reviewed by: Yonny Sr MD on 11/22/2020 4:40 PM PDT Approved by: Yonny Sr MD on 11/22/2020 4:40 PM PDT Station ID: [id number]
[2020-11-22 17:06] LABS: BASOPHILS % (AUTO) 0.5 %; EOSINOPHILS % (AUTO) 0.7 %; HCT - HEMATOCRIT 37.2 % (42.0-52.0); HGB - HEMOGLOBIN 11.6 g/dL (14.0-18.0); LYMPHOCYTES # (AUTO) 1.8 10^3/uL (1.5-3.5); LYMPHOCYTES % (AUTO) 44.1 %; MEAN CORPUSCULAR HEMOGLOBIN 23.7 pg (27.0-31.0); MEAN CORPUSCULAR HGB CONC 31.2 g/dL (32.0-36.0); MEAN CORPUSCULAR VOLUME 76.1 fL (80.0-94.0); MEAN PLATELET VOLUME 9.7 fL (7.4-11.4); MONOCYTES # (AUTO) 0.4 10^3/uL (0.0-1.0); MONOCYTES % (AUTO) 9.2 %; NEUTROPHILS # (AUTO) 1.9 10^3/uL (1.5-6.6); NEUTROPHILS % (AUTO) 45.3 %; PLT - PLATELET COUNT 253 10^3/uL (130-450); RED BLOOD COUNT 4.89 10^6/uL (4.70-6.10); RED CELL DISTRIBUTION WIDTH 14.3 % (12.0-15.0); WHITE BLOOD COUNT 4.1 x10^3/uL (4.8-10.8)
[2020-11-22 17:19] LABS: ALBUMIN 4.6 g/dL (3.2-5.5); ALBUMIN/GLOBULIN RATIO 1.5 (1.0-2.2); BILIRUBIN,TOTAL 0.4 mg/dL (0.2-1.0); CALCIUM 9.3 mg/dL (8.5-10.3); POTASSIUM 3.8 mmol/L (3.5-5.0); TOTAL PROTEIN 7.6 g/dL (6.7-8.2)
[2020-11-22 17:40] VITALS: BP 147/87
== END 2020-11-22 17:44 | disposition home or self-care (01) ==
LOC: ED 16:07
DX: R07.9 Chest pain, unspecified (principal); K21.9 Gastro-esophageal reflux disease without esophagitis; D64.9 Anemia, unspecified
CPT/HCPCS: 36415; 80053; 83690; 84484; 85025; 93005; 99284

== ENCOUNTER 2021-05-30 14:20 | Emergency (ER) | payer MEDICAID ==
[2021-05-30 14:52] LABS: BASOPHILS % (AUTO) 0.7 %; EOSINOPHILS # (AUTO) 0.1 10^3/uL (0.0-0.7); EOSINOPHILS % (AUTO) 1.7 %; HCT - HEMATOCRIT 38.1 % (42.0-52.0); HGB - HEMOGLOBIN 12.3 g/dL (14.0-18.0); LYMPHOCYTES # (AUTO) 2.1 10^3/uL (1.5-3.5); LYMPHOCYTES % (AUTO) 51.3 %; MEAN CORPUSCULAR HEMOGLOBIN 24.4 pg (27.0-31.0); MEAN CORPUSCULAR HGB CONC 32.3 g/dL (32.0-36.0); MEAN CORPUSCULAR VOLUME 75.6 fL (80.0-94.0); MEAN PLATELET VOLUME 10.2 fL (7.4-11.4); MONOCYTES # (AUTO) 0.4 10^3/uL (0.0-1.0); MONOCYTES % (AUTO) 9.2 %; NEUTROPHILS # (AUTO) 1.5 10^3/uL (1.5-6.6); NEUTROPHILS % (AUTO) 36.9 %; PLT - PLATELET COUNT 212 10^3/uL (130-450); RED BLOOD COUNT 5.04 10^6/uL (4.70-6.10); RED CELL DISTRIBUTION WIDTH 14.2 % (12.0-15.0); WHITE BLOOD COUNT 4.1 x10^3/uL (4.8-10.8)
[2021-05-30 15:04] LABS: ALBUMIN 4.6 g/dL (3.2-5.5); ALBUMIN/GLOBULIN RATIO 1.5 (1.0-2.2); BILIRUBIN,TOTAL 0.6 mg/dL (0.2-1.0); CALCIUM 9.8 mg/dL (8.5-10.3); CREATININE 1.1 mg/dL (0.6-1.2); POTASSIUM 3.6 mmol/L (3.5-5.0); TOTAL PROTEIN 7.7 g/dL (6.7-8.2)
--- NOTE | 2021-05-30 15:54 | ED Physician Documentation ---
PD HPI ABD PAIN - Stated complaint Stated Complaint: BACK/STOMACH PX - Chief complaint Chief Complaint: Abd Pain - History obtained from History obtained from: Patient - Additional information Additional information: 56-year-old gentleman with idiopathic urethritis. Previous cultures have all been negative. He presents with that feeling again that has been going on for maybe a week or 10 days. It is associated with abdominal cramping and bloating and feeling like he is gassy. Also some back pain. He has a specific worry since he has been on antifungals for about 3 months for fingernail fungus and wants to make sure his liver and kidneys are working okay. He denies fevers, nausea or chills. He had one episode of diarrhea but it was after taking MiraLAX for perceived constipation. Review of Systems Constitutional: denies: Fever, Chills Nose: denies: Rhinorrhea / runny nose, Congestion Throat: denies: Sore throat Cardiac: denies: Chest pain / pressure Respiratory: denies: Dyspnea, Cough PD PAST MEDICAL HISTORY - Past Medical History Respiratory: None Endocrine/Autoimmune: None GI: GERD, Hiatal hernia, Other : None HEENT: None Psych: None Musculoskeletal: None, Chronic back pain Derm: None - Past Surgical History Past Surgical History: Yes General: Cholecystectomy, Other Derm: Skin grafts - Present Medications Home Medications: Ambulatory Orders Medication Instructions Recorded Confirmed Omeprazole 20 mg PO DAILY #30 tab 08/18/18 Doxycycline Hyclate 100 mg PO BID #14 capsule 10/20/18 Naproxen 375 mg PO BID #14 tablet 10/20/18 Doxycycline Hyclate 100 mg PO BID #28 capsule 11/09/18 Naproxen 375 mg PO BID PRN #20 tablet 11/09/18 Oxycodone HCl/Acetaminophen 1 - 2 each PO Q6H PRN #10 tablet 11/21/18 [Percocet 5-325 mg Tablet] Doxycycline Hyclate 100 mg PO BID #28 capsule 12/06/18 Doxycycline Hyclate 100 mg PO BID #20 capsule 01/03/19 Phenazopyridine HCl [Pyridium] 200 mg PO TID PRN #6 tablet 01/03/19 Doxycycline Hyclate 100 mg PO BID #28 capsule 02/17/19 traMADol [Ultram] 50 - 100 mg PO Q6H PRN #20 tablet 02/17/19 Doxycycline Hyclate 100 mg PO BID #20 capsule 08/23/19 traMADol [Ultram] 50 - 100 mg PO Q6H PRN #20 tablet 08/23/19 Doxycycline Hyclate 100 mg PO BID #20 capsule 02/29/20 Phenazopyridine HCl [Pyridium] 200 mg PO TID PRN #6 tablet 02/29/20 Doxycycline Hyclate 100 mg PO BID #14 tab 05/30/21 traMADol [Ultram] 50 mg PO Q4-6H PRN #15 tablet 05/30/21 - Allergies Allergies/Adverse Reactions: Allergies Allergy/AdvReac Type Severity Reaction Status Date / Time ondansetron Allergy Severe Respiratory Verified 05/30/21 14:28 acetaminophen [From Vicodin] Allergy Nausea Verified 05/30/21 14:28 hydrocodone bitartrate * Allergy Nausea Verified 05/30/21 14:28 [From Vicodin] hydromorphone [From Dilaudid] Allergy Hives Verified 05/30/21 14:28 - Social History Does the pt smoke?: No Smoking Status: Never smoker Does the pt drink ETOH?: No Does the pt have substance abuse?: No - Immunizations Immunizations are current?: Yes - POLST Patient has POLST: No POLST Status: Full Code PD ED PE NORMAL - Vitals Vital signs reviewed: Yes - General General: Alert and oriented X 3, No acute distress (Comfortable appearing,) - Abdomen Abdomen: Normal bowel sounds, Soft, Non tender - Back Back: No CVA TTP, No spinal TTP - Derm Derm: Normal color, Warm and dry - Extremities Extremities: No edema, No calf tenderness / cord Results - Vitals Vitals: Vital Signs - 24 hr 05/30/21 14:28 Temperature 36.5 C Heart Rate 70 Respiratory 16 Rate Blood Pressure 115/65 O2 Saturation 99 Oxygen O2 Source Room air - Labs Labs: Laboratory Tests 05/30/21 05/30/21 14:47 14:47 WBC 4.1 L RBC 5.04 Hgb 12.3 L Hct 38.1 L MCV 75.6 L MCH 24.4 L MCHC 32.3 RDW 14.2 Plt Count 212 MPV 10.2 Neut # (Auto) 1.5 Lymph # (Auto) 2.1 [place] # (Auto) 0.4 Eos # (Auto) 0.1 Baso # (Auto) 0.0 Absolute Nucleated RBC 0.00 Nucleated RBC % 0.0 Sodium 136 Potassium 3.6 Chloride 101 Carbon Dioxide 25 Anion Gap 10.0 BUN 17 Creatinine 1.1 Estimated GFR (MDRD) 84 L Glucose 98 Calcium 9.8 Total Bilirubin 0.6 AST 21 ALT 17 Alkaline Phosphatase 36 L Total Protein 7.7 Albumin 4.6 Globulin 3.1 Albumin/Globulin Ratio 1.5 Lipase 56 H PD MEDICAL DECISION MAKING - ED course ED course: 56-year-old gentleman presents with a recurrent idiopathic urethritis which doxycycline has been helpful for him in the past. He also has some abdominal complaints but is not distressed by this so much as he is worried that he is having liver or kidney dysfunction from antifungals. Very benign exam. Departure - Departure Disposition: 01 Home, Self Care Clinical Impression: Urethritis, Abdominal pain Condition: Good Record reviewed to determine appropriate education?: Yes Instructions: Abdominal Pain Prescriptions: Doxycycline Hyclate 100 mg PO BID #14 tab traMADol [Ultram] 50 mg PO Q4-6H PRN #15 tablet PRN Reason: Pain Comments: Prescription sent electronically to [facility] in [place]. Labs are looking good today, no evidence of kidney or liver dysfunction. Call your doctor to arrange a follow-up appointment, make the next available appointment. In the interim, return anytime if worse or if new symptoms develop. I am prescribing a short course of narcotic pain medication for you. These are potentially dangerous and addictive medications that should be used carefully. These medications may constipate you. Take an rmuv-nmw-caprsme stool softener (docusate) twice daily with plenty of water while taking these medications. If you go 24 hours without a bowel movement, take [id number]-[id number] miralax, per package instructions. Do not drink or drive while taking these medications. If you received narcotic or sedating medications while in the emergency department, do not drive for 24 hours. Store this medication in a safe, secure place and out of reach of children. It is a violation of federal law to give or sell this medication to another person or to use in a manner other than prescribed. The ED will not refill narcotic prescriptions, including prescriptions lost or stolen. To dispose of unwanted medications: 1. [facility] at [address] in [place] has a medication drop box. They accept prescription medications (in pill form) Sunday through Sunday 9:00 a.m. to 5:00 p.m. 2. [facility] accepts prescription medications (in pill form only) for disposal year round. Call for more information. 3. Contact the [facility] for the next [facility] sponsored prescription drug collection event. , [phone], or [phone]; Note that many narcotic pain relievers also contain Tylenol/acetaminophen. Please ensure that your total dose of acetaminophen from all sources does not exceed 3 g (3000 mg) per day.
[2021-05-30 15:57] VITALS: BP 129/82
== END 2021-05-30 15:59 | disposition home or self-care (01) ==
LOC: ED 14:20
DX: N34.2 Other urethritis (principal); R10.9 Unspecified abdominal pain
CPT/HCPCS: 36415; 80053; 83690; 85025; 99283

== ENCOUNTER 2021-08-02 15:58 | Emergency (ER) | payer MEDICAID ==
[2021-08-02 16:17] VITALS: BP 138/71
[2021-08-02 16:38] LABS: BASOPHILS % (AUTO) 0.4 %; EOSINOPHILS # (AUTO) 0.1 10^3/uL (0.0-0.7); HCT - HEMATOCRIT 38.3 % (42.0-52.0); HGB - HEMOGLOBIN 11.9 g/dL (14.0-18.0); LYMPHOCYTES # (AUTO) 2.5 10^3/uL (1.5-3.5); LYMPHOCYTES % (AUTO) 52.4 %; MEAN CORPUSCULAR HEMOGLOBIN 23.9 pg (27.0-31.0); MEAN CORPUSCULAR HGB CONC 31.1 g/dL (32.0-36.0); MEAN CORPUSCULAR VOLUME 76.9 fL (80.0-94.0); MEAN PLATELET VOLUME 10.3 fL (7.4-11.4); MONOCYTES # (AUTO) 0.5 10^3/uL (0.0-1.0); MONOCYTES % (AUTO) 10.2 %; NEUTROPHILS # (AUTO) 1.7 10^3/uL (1.5-6.6); NEUTROPHILS % (AUTO) 35.8 %; PLT - PLATELET COUNT 238 10^3/uL (130-450); RED BLOOD COUNT 4.98 10^6/uL (4.70-6.10); RED CELL DISTRIBUTION WIDTH 15.4 % (12.0-15.0); WHITE BLOOD COUNT 4.8 x10^3/uL (4.8-10.8)
[2021-08-02 16:41] LABS: BILIRUBIN,URINE NEGATIVE (NEGATIVE); GLUCOSE, URINE (UA) NEGATIVE (NEGATIVE); KETONES,URINE (UA) NEGATIVE (NEGATIVE); LEUKOCYTE ESTERASE, URINE NEGATIVE (NEGATIVE); NITRITE,URINE NEGATIVE (NEGATIVE); OCCULT BLOOD,URINE TRACE-INTA (NEGATIVE); PROTEIN,URINE NEGATIVE (NEGATIVE); UROBILINOGEN,URINE 0.2 (NORMAL) E.U./dL (NORMAL)
[2021-08-02 16:42] LABS: CLARITY,URINE CLEAR (CLEAR)
[2021-08-02 16:52] LABS: ALBUMIN 4.5 g/dL (3.2-5.5); ALBUMIN/GLOBULIN RATIO 1.4 (1.0-2.2); BILIRUBIN,TOTAL 0.8 mg/dL (0.2-1.0); CALCIUM 9.4 mg/dL (8.5-10.3); CREATININE 1.3 mg/dL (0.6-1.2); POTASSIUM 4.1 mmol/L (3.5-5.0); TOTAL PROTEIN 7.7 g/dL (6.7-8.2)
--- NOTE | 2021-08-02 17:15 | ED Physician Documentation ---
PD HPI MALE - Stated complaint Stated Complaint: RT FLANK PX - Chief complaint Chief Complaint: Abd Pain - History obtained from History obtained from: Patient - History of Present Illness Timing - onset: How many days ago (5) Timing - duration: Days (3) Timing - details: Gradual onset, Still present Associated symptoms: Urinary frequency, Back pain. No: Discharge, Testiclar pain, Scrotal swelling PD HPI MALE CONTRIB FACTORS: Sexually active Similar symptoms before: Diagnosis (prostatitis) Recently seen: Not recently seen - Additional information Additional information: 56-year-old male was returned from a car trip to [place] where he was with his . He states he is developed symptoms again of prostatitis. He has some fullness in his rectal area pain down the inside of his legs similar to what is had previously and he has had luck with treatment with doxycycline. He has been negative for GC and chlamydia. He denies a discharge. He did have some pain in his right flank which radiated around to the front and has now resolved. Review of Systems Constitutional: denies: Fever Ears: denies: Ear pain Nose: denies: Congestion Respiratory: denies: Cough GI: denies: Abdominal Pain, Nausea, Vomiting, Constipation, Diarrhea : reports: Dysuria, Frequency. denies: Incontinent, Hematuria, Discharge Skin: denies: Rash Musculoskeletal: reports: Back pain. denies: Neck pain, Extremity pain Neurologic: denies: Generalized weakness, Focal weakness, Numbness PD PAST MEDICAL HISTORY - Past Medical History Past Medical History: Yes Respiratory: None Endocrine/Autoimmune: None GI: GERD, Hiatal hernia, Other : None HEENT: None Psych: None Musculoskeletal: None, Chronic back pain Derm: None - Past Surgical History Past Surgical History: Yes General: Cholecystectomy, Other Derm: Skin grafts - Present Medications Home Medications: Ambulatory Orders Medication Instructions Recorded Confirmed Doxycycline Hyclate 100 mg PO BID #28 cap 08/02/21 - Allergies Allergies/Adverse Reactions: Allergies Allergy/AdvReac Type Severity Reaction Status Date / Time ondansetron Allergy Severe Respiratory Verified 08/02/21 16:12 acetaminophen [From Vicodin] Allergy Nausea Verified 08/02/21 16:12 hydrocodone bitartrate * Allergy Nausea Verified 08/02/21 16:12 [From Vicodin] hydromorphone [From Dilaudid] Allergy Hives Verified 08/02/21 16:12 - Social History Does the pt smoke?: No Smoking Status: Never smoker Does the pt drink ETOH?: No Does the pt have substance abuse?: No - Immunizations Immunizations are current?: Yes - POLST Patient has POLST: No POLST Status: Full Code PD ED PE NORMAL - Vitals Vital signs reviewed: Yes (hypertensive ) - General General: Alert and oriented X 3, No acute distress, Well developed/nourished - HEENT HEENT: Atraumatic, PERRL, EOMI - Respiratory Respiratory: No respiratory distress - Abdomen Abdomen: Normal bowel sounds, Soft, Non tender, Non distended, No organomegaly - Back Back: No CVA TTP, No spinal TTP - Derm Derm: Normal color, Warm and dry, No rash - Extremities Extremities: No deformity, No edema - Neuro Neuro: Alert and oriented X 3, duco polisher 2-12 intact, No motor deficit, No sensory deficit, Normal speech Eye Opening: Spontaneous Motor: Obeys Commands Verbal: Oriented GCS Score: 15 - Psych Psych: Normal mood, Normal affect Results - Vitals Vitals: Vital Signs - 24 hr 08/02/21 16:12 Temperature 36.7 C Heart Rate 80 Respiratory 16 Rate Blood Pressure 138/71 H O2 Saturation 100 Oxygen O2 Source Room air - Labs Labs: Laboratory Tests 08/02/21 08/02/21 08/02/21 16:33 16:33 16:33 WBC 4.8 RBC 4.98 Hgb 11.9 L Hct 38.3 L MCV 76.9 L MCH 23.9 L MCHC 31.1 L RDW 15.4 H Plt Count 238 MPV 10.3 Neut # (Auto) 1.7 Lymph # (Auto) 2.5 [place] # (Auto) 0.5 Eos # (Auto) 0.1 Baso # (Auto) 0.0 Absolute Nucleated RBC 0.00 Nucleated RBC % 0.0 Sodium 138 Potassium 4.1 Chloride 103 Carbon Dioxide 27 Anion Gap 8.0 BUN 20 Creatinine 1.3 H Estimated GFR (MDRD) 69 L Glucose 106 H Calcium 9.4 Total Bilirubin 0.8 AST 22 ALT 18 Alkaline Phosphatase 35 L Total Protein 7.7 Albumin 4.5 Globulin 3.2 Albumin/Globulin Ratio 1.4 Lipase 52 H Urine Color YELLOW Urine Clarity CLEAR Urine pH 6.0 Ur Specific [place] 1.015 Urine Protein NEGATIVE Urine Glucose (UA) NEGATIVE Urine Ketones NEGATIVE Urine Occult Blood TRACE-INTA Urine Nitrite NEGATIVE Urine Bilirubin NEGATIVE Urine Urobilinogen 0.2 (NORMAL) Ur Leukocyte Esterase NEGATIVE Ur Microscopic Review NOT INDICATED Urine Culture Comments NOT INDICATED Procedures - Bedside sono Bedside sono by EMP: With use of bedside ultrasound the right kidney is imaged. It is sonographically nontender and there is no evidence of hydronephrosis. PD MEDICAL DECISION MAKING - ED course Complexity details: reviewed results, re-evaluated patient, considered differ ential, d/w patient ED course: 56-year-old male with a history of prostatitis has symptoms again of prostatitis and he indicates that doxycycline has worked well and effectively for this previously and is asking for this medication again. I have indicated the patient that this is reasonable and I have asked him to follow-up with urology. Departure - Departure Disposition: 01 Home, Self Care Clinical Impression: Prostatitis Qualifiers: Prostatitis type: unspecified Qualified Code(s): N41.9 - Inflammatory disease of prostate, unspecified Condition: Stable Instructions: ED Prostatitis Follow-Up: Priyanka Ramírez PA-C [Provider Admit Priv/Credential] - DRAKE ESCOBEDO MD [Physician No Access] - Prescriptions: Doxycycline Hyclate 100 mg PO BID #28 cap Comments: Patrick, today it looks like you have prostatitis again. Take the doxycycline as prescribed and follow-up with Dr. Escobedo the urologist at [facility]. Your medication has been e-scribed to [facility] in [place]
[2021-08-02 23:24] LABS: CHLAMYDIA TRACHOMATIS DNA NEGATIVE (NEGATIVE); NEISSERIA GONORRHOEAE DNA NEGATIVE (NEGATIVE)
== END 2021-08-02 18:05 | disposition home or self-care (01) ==
LOC: ED 15:58
DX: N41.9 Inflammatory disease of prostate, unspecified (principal)
CPT/HCPCS: 36415; 80053; 81001; 81003; 83690; 85025; 87086; 87491; 87591; 87661; 99283

== ENCOUNTER 2021-08-13 10:42 | Outpatient (CLI) | payer MEDICAID ==
--- NOTE | 2021-08-13 12:55 | XRAY Report ---
PROCEDURE: Shoulder 3 View LT INDICATIONS: STRAIN OF LEFT SHOULDER AND LEFT UPPER ARM TECHNIQUE: 3 views of the shoulder were acquired. COMPARISON: None. FINDINGS: Bones: No fractures or dislocations. No suspicious bony lesions. Visualized ribs appear intact. Soft tissues: No suspicious soft tissue calcifications. Mild soft tissue swelling noted associated with the acromioclavicular joint. IMPRESSION: No fracture or malalignment Mild soft tissue swelling associated with the AC joint reflect synovial hypertrophy or synovitis Reviewed by: Dc Suarez MD on 08/13/2021 11:53 AM [facility] Approved by: Dc Suarez MD on 08/13/2021 11:53 AM [facility] Station ID: [id number]
== END 2021-08-13 23:59 | disposition home or self-care (01) ==
LOC: DI.N 10:42
PROVIDERS: ATTEND Physician Assistant Medical
DX: S46.912A Strain of unspecified muscle, fascia and tendon at shoulder and upper arm level, left arm, initial encounter (principal); R93.6 Abnormal findings on diagnostic imaging of limbs; R93.89 Abnormal findings on diagnostic imaging of other specified body structures

== ENCOUNTER 2021-08-24 13:05 | Outpatient (CLI) | payer MEDICAID ==
[2021-08-24 18:41] LABS: BASOPHILS % (AUTO) 0.8 %; EOSINOPHILS % (AUTO) 0.8 %; HCT - HEMATOCRIT 41.8 % (42.0-52.0); HGB - HEMOGLOBIN 13.2 g/dL (14.0-18.0); LYMPHOCYTES # (AUTO) 2.4 10^3/uL (1.5-3.5); LYMPHOCYTES % (AUTO) 45.4 %; MEAN CORPUSCULAR HEMOGLOBIN 23.9 pg (27.0-31.0); MEAN CORPUSCULAR HGB CONC 31.6 g/dL (32.0-36.0); MEAN CORPUSCULAR VOLUME 75.6 fL (80.0-94.0); MEAN PLATELET VOLUME 11.2 fL (7.4-11.4); MONOCYTES # (AUTO) 0.3 10^3/uL (0.0-1.0); MONOCYTES % (AUTO) 5.4 %; NEUTROPHILS # (AUTO) 2.5 10^3/uL (1.5-6.6); NEUTROPHILS % (AUTO) 47.4 %; PLT - PLATELET COUNT 234 10^3/uL (130-450); RED BLOOD COUNT 5.53 10^6/uL (4.70-6.10); RED CELL DISTRIBUTION WIDTH 14.7 % (12.0-15.0); WHITE BLOOD COUNT 5.3 x10^3/uL (4.8-10.8)
[2021-08-24 19:59] LABS: ALBUMIN 4.8 g/dL (3.2-5.5); ALBUMIN/GLOBULIN RATIO 1.4 (1.0-2.2); ALKALINE PHOSPHATASE 36 IU/L (42-121); ALT ALANINE AMINOTRANSFERASE 25 IU/L (10-60); AST ASPARTATE AMINOTRANSFERASE 30 IU/L (10-42); BILIRUBIN,TOTAL 0.7 mg/dL (0.2-1.0); BUN - BLOOD UREA NITROGEN 16 mg/dL (6-20); CALCIUM 9.9 mg/dL (8.5-10.3); CARBON DIOXIDE - CO2 21 mmol/L (21-32); CHLORIDE 100 mmol/L (101-111); CHOL/HDL RATIO 3.2 (<5.0); CHOLESTEROL 205 mg/dL; GFR - MDRD 94 (>89); GLUCOSE 85 mg/dL (70-100); HDL CHOLESTEROL 64 mg/dL; LDL CHOLESTEROL,CALCULATED 126 mg/dL; POTASSIUM 3.5 mmol/L (3.5-5.0); SODIUM 136 mmol/L (135-145); TOTAL PROTEIN 8.3 g/dL (6.7-8.2); TRIGLYCERIDES 73 mg/dL; VLDL CHOLESTEROL 15 mg/dL
[2021-08-24 20:01] LABS: THYROID STIMULATING HORMONE 0.94 uIU/mL (0.34-5.60)
== END 2021-08-24 13:06 | disposition home or self-care (01) ==
LOC: LAB.N 13:05
PROVIDERS: ATTEND Family Medicine
DX: Z00.00 Encounter for general adult medical examination without abnormal findings (principal); N28.9 Disorder of kidney and ureter, unspecified; D64.9 Anemia, unspecified; K86.1 Other chronic pancreatitis; Z12.5 Encounter for screening for malignant neoplasm of prostate; Z14.8 Genetic carrier of other disease
CPT/HCPCS: 36415; 80053; 80061; 83721; 84153; 84443; 85025

== ENCOUNTER 2021-09-17 08:00 | Outpatient (CLI) | payer MEDICAID ==
[2021-09-17 14:06] LABS: BASOPHILS % (AUTO) 0.6 %; EOSINOPHILS % (AUTO) 0.6 %; HCT - HEMATOCRIT 37.2 % (42.0-52.0); HGB - HEMOGLOBIN 11.7 g/dL (14.0-18.0); LYMPHOCYTES # (AUTO) 1.9 10^3/uL (1.5-3.5); LYMPHOCYTES % (AUTO) 56.8 %; MEAN CORPUSCULAR HEMOGLOBIN 23.8 pg (27.0-31.0); MEAN CORPUSCULAR HGB CONC 31.5 g/dL (32.0-36.0); MEAN CORPUSCULAR VOLUME 75.6 fL (80.0-94.0); MEAN PLATELET VOLUME 10.4 fL (7.4-11.4); MONOCYTES # (AUTO) 0.3 10^3/uL (0.0-1.0); MONOCYTES % (AUTO) 8.7 %; NEUTROPHILS # (AUTO) 1.1 10^3/uL (1.5-6.6); PLT - PLATELET COUNT 238 10^3/uL (130-450); RED BLOOD COUNT 4.92 10^6/uL (4.70-6.10); RED CELL DISTRIBUTION WIDTH 14.3 % (12.0-15.0); WHITE BLOOD COUNT 3.3 x10^3/uL (4.8-10.8)
[2021-09-17 14:20] LABS: BILIRUBIN,URINE NEGATIVE (NEGATIVE); GLUCOSE, URINE (UA) NEGATIVE (NEGATIVE); KETONES,URINE (UA) NEGATIVE (NEGATIVE); LEUKOCYTE ESTERASE, URINE NEGATIVE (NEGATIVE); NITRITE,URINE NEGATIVE (NEGATIVE); OCCULT BLOOD,URINE TRACE-INTA (NEGATIVE); PROTEIN,URINE NEGATIVE (NEGATIVE); UROBILINOGEN,URINE 0.2 (NORMAL) E.U./dL (NORMAL)
[2021-09-17 14:34] LABS: ALBUMIN 4.6 g/dL (3.2-5.5); ALBUMIN/GLOBULIN RATIO 1.6 (1.0-2.2); BILIRUBIN,TOTAL 1.1 mg/dL (0.2-1.0); CALCIUM 9.6 mg/dL (8.5-10.3); POTASSIUM 4.1 mmol/L (3.5-5.0); TOTAL PROTEIN 7.5 g/dL (6.7-8.2)
[2021-09-17 14:53] LABS: CLARITY,URINE CLEAR (CLEAR); RBC,URINE 0-5 /HPF (0-5); WBC,URINE 0-3 /HPF (0-3)
[2021-09-17 14:54] LABS: BACTERIA,URINE Rare /HPF (None Seen); SQUAMOUS EPITHELIAL CELL,UR NONE SEEN (<= Few)
[2021-09-17 21:38] LABS: CHLAMYDIA TRACHOMATIS DNA NEGATIVE (NEGATIVE); NEISSERIA GONORRHOEAE DNA NEGATIVE (NEGATIVE)
== END 2021-09-17 23:59 | disposition home or self-care (01) ==
LOC: LAB.N 08:00
PROVIDERS: ATTEND Nurse Practitioner
DX: N34.2 Other urethritis (principal)
CPT/HCPCS: 36415; 80053; 81001; 82150; 83690; 85025; 87086; 87491; 87591; 87661

== ENCOUNTER 2021-09-22 08:00 | Outpatient (CLI) | payer MEDICAID ==
[2021-09-22 17:50] LABS: BILIRUBIN,URINE NEGATIVE (NEGATIVE); GLUCOSE, URINE (UA) NEGATIVE (NEGATIVE); KETONES,URINE (UA) NEGATIVE (NEGATIVE); LEUKOCYTE ESTERASE, URINE NEGATIVE (NEGATIVE); NITRITE,URINE NEGATIVE (NEGATIVE); OCCULT BLOOD,URINE TRACE-INTA (NEGATIVE); PROTEIN,URINE NEGATIVE (NEGATIVE); UROBILINOGEN,URINE 0.2 (NORMAL) E.U./dL (NORMAL)
[2021-09-22 17:56] LABS: CLARITY,URINE CLEAR (CLEAR)
[2021-09-22 18:08] LABS: BACTERIA,URINE None Seen /HPF (None Seen); RBC,URINE 0-5 /HPF (0-5); SQUAMOUS EPITHELIAL CELL,UR NONE SEEN (<= Few); WBC,URINE 0-3 /HPF (0-3)
== END 2021-09-22 23:59 | disposition home or self-care (01) ==
LOC: LAB.N 08:00
PROVIDERS: ATTEND Nurse Practitioner
DX: N34.2 Other urethritis (principal)
CPT/HCPCS: 81001; 87086

== ENCOUNTER 2021-09-26 07:38 | Outpatient (CLI) | payer MEDICAID ==
--- NOTE | 2021-09-26 10:41 | XRAY Report ---
PROCEDURE: Lumbar Spine 2 View INDICATIONS: LUMBAR RADICULOPATHY, R TECHNIQUE: 2 views of the lumbar spine were acquired. COMPARISON: None. FINDINGS: Bones: 5 [id number] vertebrae are present. There is normal bony alignment. No vertebral body compression fractures. No suspicious bony lesions. Mild multilevel endplate osteophyte formation. Soft tissues: Overlying bowel gas pattern is normal. No suspicious soft tissue calcifications. IMPRESSION: 1. Multilevel degenerative disc disease. 2. No acute fracture. No osseous lesion. If symptoms and/or clinical suspicion for pathology continue , further assessment with repeat plain films, or advanced imaging (e.g., CT, MRI, or bone scan) is re commended for further assessment. Reviewed by: Leora Baltazar MD on 09/26/2021 10:40 AM PDT Approved by: Leora Baltazar MD on 09/26/2021 10:40 AM PDT Station ID: [id number]
== END 2021-09-26 07:39 | disposition home or self-care (01) ==
LOC: DI.N 07:38
PROVIDERS: ATTEND Family Medicine
DX: M51.36 Other intervertebral disc degeneration, lumbar region (principal)

== ENCOUNTER 2021-10-12 12:48 | Outpatient (CLI) | payer MEDICAID ==
--- NOTE | 2021-10-12 15:14 | Ultrasound Report ---
PROCEDURE: Retroperitoneal INDICATIONS: PROSTATITIS TECHNIQUE: Real-time scanning was performed of the retroperitoneal organs, with image documentation. COMPARISON: Ultrasound abdomen, limited, 11/03/2016 and 01/19/2017. CT abdomen and pelvis with contras t, 09/23/2013.. FINDINGS: Kidneys: Kidneys are normal in size. Right kidney measures 9.1 cm long; left kidney measures 10.8 c m long. Right renal cortical thickness is 1.2 cm; left renal cortical thickness is 1.4 cm. No solid masses, hydronephrosis, or nephrolithiasis. Bladder: Prevoid volume 208 mL. Postvoid volume 22 mL. Prostate is enlarged. Both ureteral jets were visualized. IMPRESSION: 1. Prostate is enlarged, compatible with clinical diagnosis of prostatitis. 2. Kidneys are grossly normal. No hydronephrosis. Reviewed by: Stella Villanueva MD on 10/12/2021 3:12 PM PDT Approved by: Stella Villanueva MD on 10/12/2021 3:12 PM PDT Station ID: [id number]
== END 2021-10-12 12:49 | disposition home or self-care (01) ==
LOC: DI 12:48
PROVIDERS: ATTEND Family Medicine
DX: N41.9 Inflammatory disease of prostate, unspecified (principal)

== ENCOUNTER 2021-12-19 16:10 | Outpatient (CLI) | payer MEDICAID ==
[2021-12-19 21:20] LABS: BASOPHILS % (AUTO) 0.5 %; EOSINOPHILS # (AUTO) 0.1 10^3/uL (0.0-0.7); EOSINOPHILS % (AUTO) 2.2 %; HGB - HEMOGLOBIN 11.8 g/dL (14.0-18.0); LYMPHOCYTES # (AUTO) 2.4 10^3/uL (1.5-3.5); LYMPHOCYTES % (AUTO) 57.1 %; MEAN CORPUSCULAR HEMOGLOBIN 23.7 pg (27.0-31.0); MEAN CORPUSCULAR HGB CONC 31.1 g/dL (32.0-36.0); MEAN CORPUSCULAR VOLUME 76.5 fL (80.0-94.0); MEAN PLATELET VOLUME 11.3 fL (7.4-11.4); MONOCYTES # (AUTO) 0.4 10^3/uL (0.0-1.0); MONOCYTES % (AUTO) 9.6 %; NEUTROPHILS # (AUTO) 1.3 10^3/uL (1.5-6.6); NEUTROPHILS % (AUTO) 30.6 %; PLT - PLATELET COUNT 225 10^3/uL (130-450); RED BLOOD COUNT 4.97 10^6/uL (4.70-6.10); RED CELL DISTRIBUTION WIDTH 15.5 % (12.0-15.0); WHITE BLOOD COUNT 4.2 x10^3/uL (4.8-10.8)
[2021-12-19 21:22] LABS: BILIRUBIN,URINE NEGATIVE (NEGATIVE); GLUCOSE, URINE (UA) NEGATIVE (NEGATIVE); KETONES,URINE (UA) NEGATIVE (NEGATIVE); LEUKOCYTE ESTERASE, URINE NEGATIVE (NEGATIVE); NITRITE,URINE NEGATIVE (NEGATIVE); OCCULT BLOOD,URINE TRACE-INTA (NEGATIVE); PH,URINE 5.5 PH (5.0-7.5); PROTEIN,URINE NEGATIVE (NEGATIVE); UROBILINOGEN,URINE 0.2 (NORMAL) E.U./dL (NORMAL)
[2021-12-19 21:25] LABS: CLARITY,URINE HAZY (CLEAR)
[2021-12-19 21:31] LABS: ALBUMIN 4.6 g/dL (3.2-5.5); ALBUMIN/GLOBULIN RATIO 1.5 (1.0-2.2); BILIRUBIN,TOTAL 0.7 mg/dL (0.2-1.0); CALCIUM 9.9 mg/dL (8.5-10.3); CREATININE 1.2 mg/dL (0.6-1.2); POTASSIUM 4.3 mmol/L (3.5-5.0); TOTAL PROTEIN 7.6 g/dL (6.7-8.2)
[2021-12-19 21:37] LABS: WBC,URINE 0-3 /HPF (0-3)
[2021-12-19 21:38] LABS: BACTERIA,URINE None Seen /HPF (None Seen); RBC,URINE 0-5 /HPF (0-5); SQUAMOUS EPITHELIAL CELL,UR NONE SEEN (<= Few)
== END 2021-12-19 16:11 | disposition home or self-care (01) ==
LOC: LAB.N 16:10
PROVIDERS: ATTEND Nurse Practitioner
DX: R10.9 Unspecified abdominal pain (principal); N34.2 Other urethritis
CPT/HCPCS: 36415; 80053; 81001; 82150; 83690; 84153; 85025; 87086

== ENCOUNTER 2021-12-24 07:38 | Outpatient (CLI) | payer MEDICAID ==
--- NOTE | 2021-12-24 09:00 | CT Report ---
PROCEDURE: Abdomen/Pelvis WO INDICATIONS: ABD PAIN, PROSTATITIS TECHNIQUE: Noncontrast 5 mm thick sections acquired from the diaphragms to the symphysis. 5 mm coronal and sagi ttal reformats were then performed. For radiation dose reduction, the following was used: automated exposure control, adjustment of mA and/or kV according to patient size. COMPARISON: Limited evaluation with ultrasound dated 10/12/[address] abdomen and pelvis dated 2013 FINDINGS: Image quality: Excellent. ABDOMEN: Lung bases: Mild left basilar atelectasis/scarring. Lung bases are otherwise clear. Heart size is nor mal. Solid organs: Liver and spleen are normal in size. Gallbladder is surgically absent. Pancreas is n ormal in contours. No adrenal nodules. Kidneys are normal in size, without hydronephrosis or nephro lithiasis. Peritoneum and bowel: Unenhanced bowel loops demonstrate normal wall thickness and caliber. No free fluid or air. Scattered diverticulosis. Nodes and vessels: No retroperitoneal or mesenteric adenopathy by size criteria. Aorta and inferior vena cava are normal in caliber. Miscellaneous: No ventral hernias. PELVIS: Genitourinary: Bladder wall thickness is normal. The prostate is enlarged with dystrophic calcifica tion. Prostate measures approximately 4.6 cm transverse diameter. There is inflammation along the sup erior aspect of the prostate extending along seminal vesicles. No focal fluid collection. Miscellaneous: No inguinal hernias or adenopathy. Bones: No suspicious bony lesions. No vertebral body compression fractures. IMPRESSION: Mild prostatomegaly with inflammation noted along the superior aspect extending around the seminal ve sicles concerning for infectious or inflammatory process including prostatitis. No focal fluid collec tion within limits of this noncontrasted study. Reviewed by: Ludin Navarrete DO on 12/24/2021 7:59 AM [facility] Approved by: Ludin Navarrete DO on 12/24/2021 7:59 AM [facility] Station ID: [id number]
== END 2021-12-24 07:39 | disposition home or self-care (01) ==
LOC: DI 07:38
PROVIDERS: ATTEND Nurse Practitioner
DX: R10.9 Unspecified abdominal pain (principal); N41.9 Inflammatory disease of prostate, unspecified; N34.2 Other urethritis; R74.8 Abnormal levels of other serum enzymes

== ENCOUNTER 2022-06-28 08:00 | Outpatient (CLI) | payer MEDICAID ==
[2022-06-28 19:38] LABS: BASOPHILS % (AUTO) 0.5 %; EOSINOPHILS # (AUTO) 0.1 10^3/uL (0.0-0.7); HCT - HEMATOCRIT 34.5 % (42.0-52.0); HGB - HEMOGLOBIN 11.3 g/dL (14.0-18.0); LYMPHOCYTES # (AUTO) 2.3 10^3/uL (1.5-3.5); LYMPHOCYTES % (AUTO) 39.7 %; MEAN CORPUSCULAR HEMOGLOBIN 24.6 pg (27.0-31.0); MEAN CORPUSCULAR HGB CONC 32.8 g/dL (32.0-36.0); MEAN PLATELET VOLUME 10.8 fL (7.4-11.4); MONOCYTES # (AUTO) 0.3 10^3/uL (0.0-1.0); MONOCYTES % (AUTO) 5.7 %; NEUTROPHILS # (AUTO) 3.1 10^3/uL (1.5-6.6); NEUTROPHILS % (AUTO) 53.1 %; PLT - PLATELET COUNT 231 10^3/uL (130-450); RED CELL DISTRIBUTION WIDTH 14.3 % (12.0-15.0); WHITE BLOOD COUNT 5.8 x10^3/uL (4.8-10.8)
[2022-06-28 19:49] LABS: BILIRUBIN,URINE NEGATIVE (NEGATIVE); GLUCOSE, URINE (UA) NEGATIVE (NEGATIVE); KETONES,URINE (UA) NEGATIVE (NEGATIVE); LEUKOCYTE ESTERASE, URINE NEGATIVE (NEGATIVE); NITRITE,URINE NEGATIVE (NEGATIVE); OCCULT BLOOD,URINE NEGATIVE (NEGATIVE); PROTEIN,URINE NEGATIVE (NEGATIVE); UROBILINOGEN,URINE 0.2 (NORMAL) E.U./dL (NORMAL)
[2022-06-28 19:59] LABS: CLARITY,URINE CLEAR (CLEAR)
[2022-06-28 20:04] LABS: ALBUMIN 4.1 g/dL (3.2-5.5); ALBUMIN/GLOBULIN RATIO 1.3 (1.0-2.2); BILIRUBIN,TOTAL 0.4 mg/dL (0.2-1.0); CALCIUM 9.3 mg/dL (8.5-10.3); CREATININE 1.1 mg/dL (0.6-1.2); POTASSIUM 3.8 mmol/L (3.5-5.0); TOTAL PROTEIN 7.2 g/dL (6.7-8.2)
[2022-06-28 20:36] LABS: BACTERIA,URINE None Seen /HPF (None Seen); RBC,URINE None Seen /HPF (0-5); SQUAMOUS EPITHELIAL CELL,UR NONE SEEN (<= Few); WBC,URINE 0-3 /HPF (0-3)
== END 2022-06-28 23:59 | disposition home or self-care (01) ==
LOC: LAB.N 08:00
PROVIDERS: ATTEND Nurse Practitioner
DX: R14.0 Abdominal distension (gaseous) (principal)
CPT/HCPCS: 36415; 80053; 81001; 82150; 83690; 85025; 87086

== ENCOUNTER 2022-07-04 05:33 | Emergency (ER) | payer MEDICAID ==
[2022-07-04 05:57] LABS: BILIRUBIN,URINE NEGATIVE (NEGATIVE); GLUCOSE, URINE (UA) NEGATIVE (NEGATIVE); KETONES,URINE (UA) NEGATIVE (NEGATIVE); LEUKOCYTE ESTERASE, URINE NEGATIVE (NEGATIVE); NITRITE,URINE NEGATIVE (NEGATIVE); OCCULT BLOOD,URINE TRACE-INTA (NEGATIVE); PROTEIN,URINE NEGATIVE (NEGATIVE); UROBILINOGEN,URINE 0.2 (NORMAL) E.U./dL (NORMAL)
[2022-07-04 06:01] LABS: CLARITY,URINE CLEAR (CLEAR)
[2022-07-04 06:41] LABS: BASOPHILS % (AUTO) 0.9 %; EOSINOPHILS % (AUTO) 1.2 %; HCT - HEMATOCRIT 41.6 % (42.0-52.0); HGB - HEMOGLOBIN 12.8 g/dL (14.0-18.0); LYMPHOCYTES # (AUTO) 1.5 10^3/uL (1.5-3.5); LYMPHOCYTES % (AUTO) 44.6 %; MEAN CORPUSCULAR HEMOGLOBIN 23.4 pg (27.0-31.0); MEAN CORPUSCULAR HGB CONC 30.8 g/dL (32.0-36.0); MEAN CORPUSCULAR VOLUME 76.1 fL (80.0-94.0); MEAN PLATELET VOLUME 10.6 fL (7.4-11.4); MONOCYTES # (AUTO) 0.3 10^3/uL (0.0-1.0); MONOCYTES % (AUTO) 7.4 %; NEUTROPHILS # (AUTO) 1.5 10^3/uL (1.5-6.6); NEUTROPHILS % (AUTO) 45.9 %; PLT - PLATELET COUNT 239 10^3/uL (130-450); RED BLOOD COUNT 5.47 10^6/uL (4.70-6.10); RED CELL DISTRIBUTION WIDTH 14.2 % (12.0-15.0); WHITE BLOOD COUNT 3.4 x10^3/uL (4.8-10.8)
[2022-07-04 06:56] LABS: ALBUMIN/GLOBULIN RATIO 1.5 (1.0-2.2); BILIRUBIN,TOTAL 0.9 mg/dL (0.2-1.0); CALCIUM 9.9 mg/dL (8.5-10.3); POTASSIUM 3.4 mmol/L (3.5-5.0); TOTAL PROTEIN 8.4 g/dL (6.7-8.2)
[2022-07-04] MEDS ORDERED: iohexoL-300 100 ML VIAL ONE (07:18)
--- NOTE | 2022-07-04 07:24 | ED Physician Documentation ---
PD HPI ABD PAIN - Stated complaint Stated Complaint: ABD BLOATING/BACK PX - Chief complaint Chief Complaint: Back Pain - History obtained from History obtained from: Patient - Additional information Additional information: Patient is a 57-year-old male with a history of acid reflux presenting for evaluation of lower abdominal discomfort and feeling bloated as well as lower back pain that is been intermittent for the past 1 week.He was seen at the walk- in clinic last week prior to the new year and reports they checked labs and a urine and told him that he was slightly anemic and recommend that he have a colonoscopy with his GI doctor.He reports having regular bowel movements and normal appetite with no nausea or vomiting. There is no blood in his stools.He has had prior procedures for hemorrhoids as well as a cholecystectomy.The discomforts are intermittent and he is unsure of any exacerbating factors. He has been without his famotidine for the past 2 weeks and reported that the walk- in clinic was unable to refill it as they would only address 1 concern during the visit.He denies fever, chest pain, difficulty breathing. He denies urinary incontinence, dysuria, bowel incontinence, lower extremity pain, leg weakness, fever. He denies alcohol use.He has an upcoming appointment with his PCP In 2 weeks. Review of Systems Constitutional: denies: Fever Cardiac: denies: Chest pain / pressure Respiratory: denies: Dyspnea GI: reports: Abdominal Pain. denies: Nausea, Vomiting, Diarrhea, Bloody / black stool : denies: Dysuria Musculoskeletal: reports: Back pain Neurologic: denies: Headache PD PAST MEDICAL HISTORY - Past Medical History Past Medical History: Yes Cardiovascular: None Respiratory: None Neuro: None Endocrine/Autoimmune: None GI: GERD, Hiatal hernia, Other : None HEENT: None Psych: None Musculoskeletal: Chronic back pain Derm: None - Past Surgical History Past Surgical History: Yes General: Cholecystectomy, Other Derm: Skin grafts - Present Medications Home Medications: Ambulatory Orders Medication Instructions Recorded Confirmed Famotidine [Pepcid AC] 10 mg PO BID #60 tablet 07/04/22 - Allergies Allergies/Adverse Reactions: Allergies Allergy/AdvReac Type Severity Reaction Status Date / Time ondansetron Allergy Severe Respiratory Verified 07/04/22 05:47 acetaminophen [From Vicodin] Allergy Nausea Verified 07/04/22 05:47 hydrocodone bitartrate * Allergy Nausea Verified 07/04/22 05:47 [From Vicodin] hydromorphone [From Dilaudid] Allergy Hives Verified 07/04/22 05:47 - Social History Does the pt smoke?: No Smoking Status: Never smoker Does the pt drink ETOH?: No Does the pt have substance abuse?: No - Immunizations Immunizations are current?: Yes - POLST Patient has POLST: No POLST Status: Full Code PD ED PE NORMAL - General General: Alert and oriented X 3, No acute distress, Well developed/nourished - HEENT HEENT: Atraumatic, Moist mucous membranes, Pharynx benign - Neck Neck: Supple, no meningeal sign - Cardiac Cardiac: RRR, No murmur - Respiratory Respiratory: Clear bilaterally - Abdomen Abdomen: Normal bowel sounds, Soft, Non tender, Non distended, Other (No mass, no hernia) - Derm Derm: Warm and dry - Extremities Extremities: No edema - Neuro Neuro: Normal speech Results - Vitals Vitals: Vital Signs - 24 hr 07/04/22 07/04/22 07/04/22 05:44 06:40 09:29 Temperature 37.3 C Heart Rate 87 76 Respiratory 17 15 17 Rate Blood Pressure 151/80 H 122/89 H O2 Saturation 97 99 Oxygen O2 Source Room air - Labs Labs: Laboratory Tests 07/04/22 07/04/22 07/04/22 05:40 06:35 06:35 WBC 3.4 L RBC 5.47 Hgb 12.8 L Hct 41.6 L MCV 76.1 L MCH 23.4 L MCHC 30.8 L RDW 14.2 Plt Count 239 MPV 10.6 Neut # (Auto) 1.5 Lymph # (Auto) 1.5 [place] # (Auto) 0.3 Eos # (Auto) 0.0 Baso # (Auto) 0.0 Absolute Nucleated RBC 0.00 Nucleated RBC % 0.0 Sodium 138 Potassium 3.4 L Chloride 103 Carbon Dioxide 23 Anion Gap 12.0 BUN 19 Creatinine 1.0 Estimated GFR (MDRD) 94 Glucose 103 H Calcium 9.9 Total Bilirubin 0.9 AST 28 ALT 22 Alkaline Phosphatase 36 L Total Protein 8.4 H Albumin 5.0 Globulin 3.4 Albumin/Globulin Ratio 1.5 Lipase 43 Urine Color YELLOW Urine Clarity CLEAR Urine pH 6.0 Ur Specific [place] 1.010 Urine Protein NEGATIVE Urine Glucose (UA) NEGATIVE Urine Ketones NEGATIVE Urine Occult Blood TRACE-INTA Urine Nitrite NEGATIVE Urine Bilirubin NEGATIVE Urine Urobilinogen 0.2 (NORMAL) Ur Leukocyte Esterase NEGATIVE Ur Microscopic Review NOT INDICATED Urine Culture Comments NOT INDICATED PD Medical Decision Making - ED course Complexity details: reviewed results, re-evaluated patient, d/w patient Reviewed Lab Results: Patient's hemoglobin is 12.8 which is slightly improved from previous labs Of 11.3 From 06/28/22; Slight leukopenia 3.4 which appears to be chronic on review of previous labs; Potassium of 3.4 which I have ordered p.o. replacement. ED course: Patient is a 57-year-old Presenting for evaluation of intermittent episodes of abdominal and back pain along with feelings of bloating.Vital signs appear stable. No tenderness or pain noted here. Patient is ambulatory with no red flag signs or symptoms in regards to his back pain.Labs are reviewed.Imaging was obtained which does not show any acute pathology. Patient understands importance of close follow-up with his PCP As well as return precautions. Departure - Departure Disposition: 01 Home, Self Care Clinical Impression: Abdominal bloating Condition: Stable Instructions: ED Abdominal Pain Unkn Cause Male Prescriptions: Famotidine [Pepcid AC] 10 mg PO BID #60 tablet Comments: Please follow-up with your primary care doctor regarding your symptoms. I have sent a prescription for your famotidine to [facility] in [place]. Please continue with using MiraLAX daily to keep your stools soft. If you have any new or worsening symptoms please consider return to the emergency department. Discharge Date/Time: 07/04/22 09:29
[2022-07-04] MEDS ORDERED: POTASSIUM CHLORIDE 20 MEQ TABLET PO STA (07:41)
[2022-07-04] MEDS ORDERED: iohexoL-300 100 ML VIAL IVP ONE (08:04)
--- NOTE | 2022-07-04 08:51 | CT Report ---
PROCEDURE: ABDOMEN/PELVIS W INDICATIONS: lower abd pain to back intermittent x 1 week CONTRAST: 100ml Omnipaque 300 TECHNIQUE: After the administration of IV contrast, 5 mm thick sections acquired from the diaphragms to the symp hysis. 5 mm thick coronal and sagittal reformats were acquired. For radiation dose reduction, the f ollowing was used: automated exposure control, adjustment of mA and/or kV according to patient size. COMPARISON: CT abdomen and pelvis without, 12/24/[address] abdomen and pelvis was, 09/23/2013. FINDINGS: Image quality: Excellent. ABDOMEN: Lung bases: Lung bases are clear. Heart size is normal. Small hiatal hernia. Solid organs: Liver is normal in size. There is a hypodensity adjacent to the falciform ligament, m ost likely secondary to focal fat. There is hepatic steatosis. Spleen is normal in size. Gallbladder is surgically absent. Biliary system is non-dilated. Pancreas enhances normally. No adrenal nodule s. Kidneys demonstrate normal size and enhancement, without hydronephrosis. Peritoneum and bowel: Cecum appears thickened. Appendix is normal. Bowel loops demonstrate normal ca liber. No free fluid or air. Nodes and vessels: No retroperitoneal or mesenteric adenopathy by size criteria. Aorta and inferior vena cava are normal in size. Miscellaneous: No ventral hernias. PELVIS: Genitourinary: Bladder wall thickness is normal. Prostate is moderately enlarged. Miscellaneous: No inguinal hernias or adenopathy. Bones: No suspicious bony lesions. No vertebral body compression fractures. IMPRESSION: 1. Cecum appears thickened, suggesting infectious or inflammatory change. In absence of oral contrast , a differential diagnosis is artifact. 2. Normal appendix. Reviewed by: Stella Villanueva MD on 07/04/2022 8:49 AM PST Approved by: Stella Villanueva MD on 07/04/2022 8:49 AM PST Station ID: [id number]
[2022-07-04 09:30] VITALS: BP 122/89
== END 2022-07-04 09:29 | disposition home or self-care (01) ==
LOC: ED 05:33
DX: R14.0 Abdominal distension (gaseous) (principal)
CPT/HCPCS: 36415; 74177; 80053; 81003; 83690; 85025; 99284; A9270; Q9967; 81001; 87086

== ENCOUNTER 2022-07-12 14:51 | Outpatient (CLI) | payer MEDICAID, OTHER ==
--- NOTE | 2022-07-12 16:46 | XRAY Report ---
PROCEDURE: Shoulder 3 View LT INDICATIONS: LEFT SHOULDER PAIN TECHNIQUE: 3 views of the shoulder were acquired. COMPARISON: Left shoulder radiographs 08/13/2021 FINDINGS: Bones: No acute fractures or dislocations. No suspicious bony lesions. Visualized ribs appear inta ct. Mild loss of cortical definition is seen in the distal clavicle and acromion on AP view, which c an be partially related to technique but osseous erosions or osteolysis are not excluded. Soft tissues: No suspicious soft tissue calcifications. Mild soft tissue prominence again seen dors al to the acromioclavicular joint. IMPRESSION: Mild loss of cortical definition surrounding the acromioclavicular joint may be related to mild degen erative changes versus distal clavicular osteolysis or a nonspecific infectious or inflammatory proce ss. Reviewed by: Gopal Givens MD on 07/12/2022 4:44 PM PST Approved by: Gopal Givens MD on 07/12/2022 4:44 PM PST Station ID: [id number]
== END 2022-07-12 14:52 | disposition home or self-care (01) ==
LOC: DI 14:51
PROVIDERS: ATTEND Internal Medicine
DX: M25.512 Pain in left shoulder (principal); M47.816 Spondylosis without myelopathy or radiculopathy, lumbar region

== ENCOUNTER 2022-07-12 15:02 | Outpatient (CLI) | payer OTHER ==
--- NOTE | 2022-07-12 16:51 | XRAY Report ---
PROCEDURE: Lumbar Spine 2 View INDICATIONS: LUMBAR PAIN TECHNIQUE: 2 views of the lumbar spine were acquired. COMPARISON: None. FINDINGS: Bones: Transitional anatomy is present including a thoracolumbar transitional element with small flor imentary ribs and a lumbosacral transitional element. There is normal bony alignment. No vertebral b [place] compression fractures. No suspicious bony lesions. Mild disc space narrowing and degenerative e ndplate changes are seen. There is mild facet hypertrophy. Soft tissues: Overlying bowel gas pattern is normal. No suspicious soft tissue calcifications. Mignon gical clips are seen projecting over the abdomen and pelvis. IMPRESSION: 1.Transitional spinal anatomy. Recommend correlation with complete spine radiographs prior to any mani ctive surgical procedure. 2.Mild multilevel spondylosis. Reviewed by: Gopal Givens MD on 07/12/2022 4:50 PM PST Approved by: Gopal Givens MD on 07/12/2022 4:50 PM PST Station ID: [id number]
== END 2022-07-12 15:03 | disposition home or self-care (01) ==
LOC: DI 15:02
PROVIDERS: ATTEND Internal Medicine Cardiovascular Disease
DX: M47.816 Spondylosis without myelopathy or radiculopathy, lumbar region (principal)

== ENCOUNTER 2022-07-17 10:26 | Outpatient (CLI) | payer MEDICAID ==
[2022-07-17 17:44] LABS: BASOPHILS % (AUTO) 0.8 %; EOSINOPHILS # (AUTO) 0.1 10^3/uL (0.0-0.7); EOSINOPHILS % (AUTO) 1.3 %; HGB - HEMOGLOBIN 12.5 g/dL (14.0-18.0); LYMPHOCYTES # (AUTO) 2.2 10^3/uL (1.5-3.5); LYMPHOCYTES % (AUTO) 55.8 %; MEAN CORPUSCULAR HEMOGLOBIN 23.5 pg (27.0-31.0); MEAN CORPUSCULAR HGB CONC 30.5 g/dL (32.0-36.0); MEAN CORPUSCULAR VOLUME 77.2 fL (80.0-94.0); MEAN PLATELET VOLUME 10.6 fL (7.4-11.4); MONOCYTES # (AUTO) 0.3 10^3/uL (0.0-1.0); MONOCYTES % (AUTO) 6.9 %; NEUTROPHILS # (AUTO) 1.4 10^3/uL (1.5-6.6); NEUTROPHILS % (AUTO) 34.9 %; PLT - PLATELET COUNT 227 10^3/uL (130-450); RED BLOOD COUNT 5.31 10^6/uL (4.70-6.10); WHITE BLOOD COUNT 3.9 x10^3/uL (4.8-10.8)
[2022-07-17 18:22] LABS: % IRON SATURATION 31 % (20-50); ALBUMIN 4.6 g/dL (3.2-5.5); ALBUMIN/GLOBULIN RATIO 1.4 (1.0-2.2); ALKALINE PHOSPHATASE 31 IU/L (42-121); ALT ALANINE AMINOTRANSFERASE 21 IU/L (10-60); AMYLASE 126 U/L (28-100); AST ASPARTATE AMINOTRANSFERASE 24 IU/L (10-42); BILIRUBIN,TOTAL 0.6 mg/dL (0.2-1.0); BUN - BLOOD UREA NITROGEN 13 mg/dL (6-20); CALCIUM 9.7 mg/dL (8.5-10.3); CARBON DIOXIDE - CO2 27 mmol/L (21-32); CHLORIDE 99 mmol/L (101-111); CHOL/HDL RATIO 2.9 (<5.0); CHOLESTEROL 215 mg/dL; CREATININE 1.1 mg/dL (0.6-1.2); GFR - MDRD 84 (>89); GLUCOSE 89 mg/dL (70-100); HDL CHOLESTEROL 74 mg/dL; IRON 107 ug/dL (45-182); LDL CHOLESTEROL,CALCULATED 125 mg/dL; LDL/HDL RATIO 1.7 (<3.6); LIPASE 38 U/L (22-51); POTASSIUM 3.7 mmol/L (3.5-5.0); SODIUM 135 mmol/L (135-145); TOTAL IRON BINDING CAPACITY 343 ug/dL (250-450); TOTAL PROTEIN 7.8 g/dL (6.7-8.2); TRANSFERRIN 245 mg/dL (180-329); TRIGLYCERIDES 81 mg/dL; VLDL CHOLESTEROL 16 mg/dL
[2022-07-17 18:30] LABS: THYROID STIMULATING HORMONE 1.16 uIU/mL (0.34-5.60)
[2022-07-17 18:36] LABS: FERRITIN 84.5 ng/mL (23.9-336.2)
[2022-07-19 17:08] LABS: T-TRANSGLUTAMINASE (TTG) IGA <2 U/mL (0-3); T-TRANSGLUTAMINASE (TTG) IGG <2 U/mL (0-5)
== END 2022-07-17 10:27 | disposition home or self-care (01) ==
LOC: LAB.N 10:26
PROVIDERS: ATTEND Family Medicine
DX: D64.9 Anemia, unspecified (principal); R14.0 Abdominal distension (gaseous); N28.9 Disorder of kidney and ureter, unspecified; R74.8 Abnormal levels of other serum enzymes; K59.00 Constipation, unspecified
CPT/HCPCS: 36415; 80053; 80061; 81599; 82150; 82607; 82728; 83020; 83516; 83540; 83690; 83721; 84443; 84466; 85025; 86364

== ENCOUNTER 2022-08-24 16:31 | Outpatient (CLI) | payer MEDICAID ==
--- NOTE | 2022-08-24 17:00 | XRAY Report ---
PROCEDURE: Shoulder 1 View LT INDICATIONS: LEFT SHOULDER PX AXIAL VIEW ONLY ADD PREVIOUS STUDY TECHNIQUE: Single axillary view of the shoulder was acquired. COMPARISON: 3 views of the shoulder dated 07/12/2022 FINDINGS: Bones: No fractures or dislocations. No acromioclavicular joint space narrowing. Bony erosion is red emonstrated at the distal clavicle similar to the study dated 07/12/2022. Soft tissues: No suspicious soft tissue calcifications. IMPRESSION: Erosive changes of the distal clavicle are redemonstrated. Findings may represent degene rative change. Reviewed by: Taryn Bolton MD on 08/24/2022 4:58 PM PST Approved by: Taryn Bolton MD on 08/24/2022 4:58 PM PST Station ID: [id number]
== END 2022-08-24 16:43 | disposition home or self-care (01) ==
LOC: DI.WOS 16:31
PROVIDERS: ATTEND Physician Assistant Surgical
DX: M19.012 Primary osteoarthritis, left shoulder (principal)

== ENCOUNTER 2022-10-24 06:49 | Outpatient (CLI) | payer MEDICAID ==
--- NOTE | 2022-10-24 17:15 | Ultrasound Report ---
PROCEDURE: Abdomen Complete INDICATIONS: ELEVATED PANCREATIC ENZYME TECHNIQUE: Real-time scanning was performed of the abdominal and retroperitoneal organs, with image documentatio n. COMPARISON: CT abdomen pelvis 07/04/2022. FINDINGS: Liver: Liver is normal in size and homogeneous in echotexture. Gallbladder: Removed. Biliary ducts: Intrahepatic bile ducts are non-dilated. Extrahepatic bile duct caliber measures 4.7 mm. Normal is 6-7 mm or less in diameter, or 10 mm or less post-cholecystectomy. Pancreas: Visualized portions of the pancreas are sonographically normal. Spleen: Spleen is normal in size and homogeneous in echotexture. Kidneys: Kidneys are normal in size and echotexture. Right kidney measures 9.2 cm long; left kidney measures 9.8 cm long. No hydronephrosis or nephrolithiasis. No solid masses. No complex renal cyst ic lesions which require follow-up. Aorta: Visualized aorta is normal in caliber at less than 3 cm. Iliacs: Proximal common iliac arteries are normal in caliber at less than 2.5 cm. IVC: Intrahepatic inferior vena cava is patent. Miscellaneous: No free abdominal fluid. IMPRESSION: Cholecystectomy. Visualized portions of the pancreas are unremarkable. Reviewed by: Melinda Najera MD on 10/24/2022 5:14 PM PDT Approved by: Melinda Najera MD on 10/24/2022 5:14 PM PDT Station ID: [id number]
== END 2022-10-24 06:50 | disposition home or self-care (01) ==
LOC: DI 06:49
PROVIDERS: ATTEND Internal Medicine
DX: R74.8 Abnormal levels of other serum enzymes (principal); Z90.49 Acquired absence of other specified parts of digestive tract

== ENCOUNTER 2023-03-22 20:35 | Emergency (ER) | payer MEDICAID ==
[2023-03-22 21:18] LABS: BASOPHILS % (AUTO) 0.9 %; EOSINOPHILS # (AUTO) 0.1 10^3/uL (0.0-0.7); EOSINOPHILS % (AUTO) 1.1 %; HCT - HEMATOCRIT 39.4 % (42.0-52.0); LYMPHOCYTES # (AUTO) 2.8 10^3/uL (1.5-3.5); LYMPHOCYTES % (AUTO) 63.9 %; MEAN CORPUSCULAR HEMOGLOBIN 23.8 pg (27.0-31.0); MEAN CORPUSCULAR HGB CONC 30.5 g/dL (32.0-36.0); MEAN PLATELET VOLUME 10.5 fL (7.4-11.4); MONOCYTES # (AUTO) 0.3 10^3/uL (0.0-1.0); MONOCYTES % (AUTO) 7.5 %; NEUTROPHILS # (AUTO) 1.2 10^3/uL (1.5-6.6); NEUTROPHILS % (AUTO) 26.6 %; PLT - PLATELET COUNT 218 10^3/uL (130-450); RED BLOOD COUNT 5.05 10^6/uL (4.70-6.10); RED CELL DISTRIBUTION WIDTH 14.4 % (12.0-15.0); WHITE BLOOD COUNT 4.4 x10^3/uL (4.8-10.8)
[2023-03-22 21:32] LABS: ALBUMIN 4.6 g/dL (3.2-5.5); ALBUMIN/GLOBULIN RATIO 1.8 (1.0-2.2); BILIRUBIN,TOTAL 0.5 mg/dL (0.2-1.0); CALCIUM 9.1 mg/dL (8.5-10.3); CREATININE 1.1 mg/dL (0.6-1.2); POTASSIUM 3.9 mmol/L (3.5-5.0); TOTAL PROTEIN 7.2 g/dL (6.7-8.2)
--- NOTE | 2023-03-22 21:36 | XRAY Report ---
PROCEDURE: Chest 1 View X-Ray INDICATIONS: Chest pain TECHNIQUE: One view of the chest was acquired. COMPARISON: None. FINDINGS: Surgical changes and devices: None. Lungs and pleura: No pleural effusions or pneumothorax. Lungs are clear. Mediastinum: Mediastinal contours appear normal. Heart size is normal. Bones and chest wall: No suspicious bony lesions. Overlying soft tissues appear unremarkable. IMPRESSION: No acute cardiopulmonary disease. Reviewed by: Giles Montoya MD on 03/22/2023 9:35 PM PDT Approved by: Giles Montoya MD on 03/22/2023 9:35 PM PDT Station ID: [id number]
[2023-03-22 21:39] LABS: TROPONIN I HIGH SENSITIVITY 2.5 ng/L (2.3-19.7)
--- NOTE | 2023-03-22 21:46 | ED Physician Documentation ---
PD HPI CHEST PAIN - Stated complaint Stated Complaint: CHEST PX - Chief complaint Chief Complaint: Cardiac - History obtained from History obtained from: Patient - Additional information Additional information: 58-year-old male with history of GERD, hiatal hernia, non-smoker, no history of diabetes, high blood pressure, hyperlipidemia, no family history of MD, presents with sharp midsternal chest pain intermittent since yesterday without associated shortness of breath, dizziness, nausea vomiting or fever. Patient is states he has been under some emotional distress. PD PAST MEDICAL HISTORY - Past Medical History Cardiovascular: None Respiratory: None Neuro: None Endocrine/Autoimmune: None GI: GERD, Hiatal hernia, Other : None HEENT: None Psych: None Musculoskeletal: Chronic back pain Derm: None - Past Surgical History Past Surgical History: Yes General: Cholecystectomy, Other Derm: Skin grafts - Present Medications Home Medications: Ambulatory Orders Medication Instructions Recorded Confirmed Famotidine [Pepcid AC] 10 mg PO BID #60 tablet 07/04/22 - Allergies Allergies/Adverse Reactions: Allergies Allergy/AdvReac Type Severity Reaction Status Date / Time ondansetron Allergy Severe Respiratory Verified 03/22/23 20:51 acetaminophen [From Vicodin] Allergy Nausea Verified 03/22/23 20:51 hydrocodone bitartrate * Allergy Nausea Verified 03/22/23 20:51 [From Vicodin] hydromorphone [From Dilaudid] Allergy Hives Verified 03/22/23 20:51 - Social History Does the pt smoke?: No Smoking Status: Never smoker Does the pt drink ETOH?: No Does the pt have substance abuse?: No - Immunizations Immunizations are current?: Yes - POLST Patient has POLST: No POLST Status: Full Code PD ED PE NORMAL - Vitals Vital signs reviewed: Yes - General General: Alert and oriented X 3, No acute distress, Well developed/nourished - HEENT HEENT: Atraumatic, PERRL, EOMI, Moist mucous membranes, Pharynx benign - Neck Neck: Supple, no meningeal sign - Cardiac Cardiac: RRR - Respiratory Respiratory: No respiratory distress, Clear bilaterally - Abdomen Abdomen: Non tender, Non distended - Derm Derm: Normal color, Warm and dry Results - Vitals Vitals: Vital Signs - 24 hr 03/22/23 03/22/23 03/22/23 20:46 21:33 22:34 Temperature 36.7 C Heart Rate 87 74 63 Respiratory 18 18 18 Rate Blood Pressure 141/78 H 131/75 H 132/81 H O2 Saturation 100 98 97 Oxygen O2 Source Room air - EKG (time done) 2052 EKG releavant findings:: EKG personally interpreted by author of this note. Relevant findings are: Rate: Rate (enter#) (74) Rhythm: NSR [place]: Normal Intervals: Normal MA QRS: Normal Ischemia: Normal ST segments - Labs Labs: Laboratory Tests 03/22/23 03/22/23 21:14 21:14 WBC 4.4 L RBC 5.05 Hgb 12.0 L Hct 39.4 L MCV 78.0 L MCH 23.8 L MCHC 30.5 L RDW 14.4 Plt Count 218 MPV 10.5 Neut # (Auto) 1.2 L Lymph # (Auto) 2.8 [place] # (Auto) 0.3 Eos # (Auto) 0.1 Baso # (Auto) 0.0 Absolute Nucleated RBC 0.00 Nucleated RBC % 0.0 Sodium 138 Potassium 3.9 Chloride 105 Carbon Dioxide 26 Anion Gap 7.0 BUN 12 Creatinine 1.1 Estimated GFR (MDRD) 84 L Glucose 102 H Calcium 9.1 Total Bilirubin 0.5 AST 19 ALT 14 Alkaline Phosphatase 31 L Troponin I High Sens 2.5 Total Protein 7.2 Albumin 4.6 Globulin 2.6 Albumin/Globulin Ratio 1.8 Lipase 46 PD Medical Decision Making - ED course ED course: 58-year-old man with history of hiatal hernia and GERD presents with epigastric pain radiating up to the mid sternum intermittent over the past couple of days in addition to some emotional stress. Patient is well-appearing with normal vital signs and exam. EKG was unremarkable and chest x-ray per my wet read and outside radiologist was without evidence of cardiopulmonary disease. Lab work including CBC, abdominal panel, troponin were unremarkable except for hemoglobin of 12 with baseline 12.5 as of 07/17/2022. Advised patient to follow-up with his primary care provider regarding this. He is asymptomatic at present and reassured. Heart score 1 (age). low risk for PE, dissection given asymptomatic. Likely GERD. Plan to f/u pcp. return precautions given. Departure - Departure Disposition: 01 Home, Self Care Clinical Impression: Chest pain Condition: Stable Instructions: ED Chest Pain NonCardiac Comments: You were seen in the emergency department for chest pain. Your labwork and tests looked normal except for some anemia (hb 12) that you should talk to your doctor about. Please follow-up with your primary care provider and return to the emergency department if you have any new or worsening symptoms or other concerns. Forms: PCP List
[2023-03-22 23:14] VITALS: BP 135/78; O2SAT 98
== END 2023-03-22 23:13 | disposition home or self-care (01) ==
LOC: ED 20:35
DX: R07.9 Chest pain, unspecified (principal)
CPT/HCPCS: 36415; 80053; 83690; 84484; 85025; 93005; 99283; 99284

== ENCOUNTER 2023-07-13 15:00 | Outpatient (CLI) | payer MEDICAID ==
[2023-07-13 17:48] LABS: BASOPHILS % (AUTO) 0.7 %; EOSINOPHILS # (AUTO) 0.1 10^3/uL (0.0-0.7); EOSINOPHILS % (AUTO) 1.7 %; HCT - HEMATOCRIT 39.4 % (42.0-52.0); LYMPHOCYTES # (AUTO) 1.9 10^3/uL (1.5-3.5); LYMPHOCYTES % (AUTO) 45.7 %; MEAN CORPUSCULAR HEMOGLOBIN 23.5 pg (27.0-31.0); MEAN CORPUSCULAR HGB CONC 30.5 g/dL (32.0-36.0); MEAN CORPUSCULAR VOLUME 77.1 fL (80.0-94.0); MONOCYTES # (AUTO) 0.3 10^3/uL (0.0-1.0); MONOCYTES % (AUTO) 7.6 %; NEUTROPHILS # (AUTO) 1.9 10^3/uL (1.5-6.6); NEUTROPHILS % (AUTO) 44.1 %; PLT - PLATELET COUNT 256 10^3/uL (130-450); RED BLOOD COUNT 5.11 10^6/uL (4.70-6.10); RED CELL DISTRIBUTION WIDTH 14.3 % (12.0-15.0); WHITE BLOOD COUNT 4.2 x10^3/uL (4.8-10.8)
[2023-07-13 18:07] LABS: ALBUMIN 4.8 g/dL (3.2-5.5); ALBUMIN/GLOBULIN RATIO 1.8 (1.0-2.2); BILIRUBIN,TOTAL 0.3 mg/dL (0.2-1.0); CALCIUM 9.9 mg/dL (8.5-10.3); POTASSIUM 3.7 mmol/L (3.5-4.5); TOTAL PROTEIN 7.5 g/dL (6.4-8.9)
[2023-07-13 18:17] LABS: THYROID STIMULATING HORMONE 0.64 uIU/mL (0.34-5.60)
== END 2023-07-13 15:15 | disposition home or self-care (01) ==
LOC: LAB.N 15:00
PROVIDERS: ATTEND Family Medicine
DX: R10.9 Unspecified abdominal pain (principal); Z12.5 Encounter for screening for malignant neoplasm of prostate
CPT/HCPCS: 36415; 80053; 82150; 83690; 84153; 84443; 85025

== ENCOUNTER 2023-07-23 07:37 | Outpatient (CLI) | payer MEDICAID ==
[2023-07-23] MEDS ORDERED: DIATRIZOATE MEGLU/DIATRIZO SOD 30 ML BOTTLE PO ONE ×2 (07:46→09:57)
[2023-07-23] MEDS ORDERED: iohexoL-300 100 ML VIAL ONE (07:46)
[2023-07-23] MEDS ORDERED: iohexoL-300 100 ML VIAL IVP ONE (09:57)
--- NOTE | 2023-07-23 11:15 | CT Report ---
PROCEDURE: Abdomen/Pelvis W INDICATIONS: ABD PAIN CONTRAST: Omni 300 100ml TECHNIQUE: After the administration of intravenous contrast, a CT scan of the abdomen and pelvis was performed. Images were recorded and evaluated at appropriate window settings. Reformats: coronal and sagittal. F or radiation dose reduction, the following was used: automated exposure control, adjustment of mA and /or kV according to patient size. COMPARISON: None. FINDINGS: Image quality: Excellent. Lung bases and heart: Unremarkable. Liver: No solid mass. Gallbladder and biliary tree: Surgically absent. No biliary dilation, accounting for post-cholecystec jenny state. Spleen: No splenomegaly. Pancreas: No pancreatic ductal dilation. Adrenals: No adrenal nodule. Kidneys and ureters: No hydronephrosis. No renal cystic lesion which requires follow up. No solid mas s. Bowel and peritoneum: No bowel distension. No pathologic free fluid. Lymph nodes: No central or retroperitoneal adenopathy. Vessels: No infrarenal aortic aneurysm. PELVIS Reproductive organs: Unremarkable. Bladder: No abnormal wall thickening, accounting for underdistention. Pelvic lymph nodes: No pelvic adenopathy by size criteria. Bones: No aggressive osseous abnormality. Other: No significant ventral or inguinal hernia. IMPRESSION: Normal abdominal/pelvic CT. Reviewed by: South Burciaga MD on 07/23/2023 11:13 AM [facility] Approved by: South Burciaga MD on 07/23/2023 11:13 AM PST Station ID: [id number]
== END 2023-07-23 07:38 | disposition home or self-care (01) ==
LOC: DI 07:37
PROVIDERS: ATTEND Family Medicine
DX: R10.9 Unspecified abdominal pain (principal)
CPT/HCPCS: 74177; Q9963; Q9967